=== PATIENT | male | born 1950 | race Caucasian/White ===

== ENCOUNTER 2016-04-07 16:25 | Emergency (ER) | payer MEDICARE, BC ==
[2016-04-07 16:34] VITALS: BP 137/76
--- NOTE | 2016-04-07 17:42 | RAD ---
Indication: Right shoulder pain. 3 views of the right shoulder demonstrates no fracture or dislocation. No other bone or joint abnormality is noted. IMPRESSION: No fracture of the right shoulder is noted.
--- NOTE | 2016-04-07 18:00 | UC ---
Shoulder Pain HPI - HPI Summary HPI Summary: 66 yo male s/p fall down three stairs late Dec Landed on right shoulder bruised initially persistent pain with use or lying on right side - History of Current Complaint Chief Complaint: UCUpperExtremity Stated Complaint: RIGHT SHOULDER/ARM PAIN Time Seen by Provider: 04/07/16 16:35 Hx Obtained From: Patient Onset/Duration: Sudden Onset Timing: Constant Severity Initially: Moderate Severity Currently: Mild Location Of Pain: Is Diffuse Pain Intensity: 2 Pain Scale Used: 0-10 Numeric Character: Dull, Aching Aggravating Factor(s): Movement Alleviating Factor(s): Rest Associated Signs And Symptoms: Positive: Bruising - now resolved Related History: Dominant Hand Right - Allergies/Home Medications Allergies/Adverse Reactions: Allergies Allergy/AdvReac Type Severity Reaction Status Date / Time Latex Allergy Rash Verified 04/07/16 16:34 Aspirin AdvReac Intermediate Rash Verified 04/07/16 16:34 Penicillins AdvReac Intermediate Rash Verified 04/07/16 16:34 Home Medications: Home Medications Anti Diarrhea 2 mg DAILY PRN 04/07/16 [History Confirmed 04/07/16] Magnesium Chloride EC TAB* [Slow Mag EC TAB*] 64 mg PO DAILY 04/07/16 [History Confirmed 04/07/16] PMH/Surg Hx/FS Hx/Imm Hx Previously Healthy: Yes Endocrine History Of: Reports: Thyroid Disease - hypothyroid Cardiovascular History Of: Reports: Hypertension - ON DAILY MEDS Respiratory History Of: Reports: Asthma - MINOR- NO INHALERS GI/ History Of: Reports: Ulcer - TREATED WITH MEDICATION, MANY YEARS AGO, Kidney Stones - PASSED Psychological History Of: Reports: Depression - Surgical History Surgical History: Yes Surgery Procedure, Year, and Place: 1979 thyroidectomy for hyperthyroid [facility] AGE 8 SURGERY ON BOTH EYES .HERNIA 2002 , UMBILICAL HERNIA and at . [id number] [facility] [place] - Family History Known Family History: Positive: Hypertension, Diabetes - Social History Alcohol Use: None Substance Use Type: None Smoking Status (MU): Never Smoked Tobacco - Immunization History Most Recent Tetanus Shot: 2006 Review of Systems Constitutional: Negative Skin: Negative Eyes: Negative ENT: Negative Respiratory: Negative Cardiovascular: Negative Gastrointestinal: Negative Genitourinary: Negative Motor: Negative Neurovascular: Negative Musculoskeletal: Arthralgia Neurological: Negative Psychological: Negative All Other Systems Reviewed And Are Negative: Yes Physical Exam Triage Information Reviewed: Yes Appearance: Well-Appearing, No Pain Distress, Well-Nourished Vital Signs: Initial Vital Signs Temp 98.5 F 04/07/16 16:30 Pulse 50 04/07/16 16:30 Resp 16 04/07/16 16:30 BP 137/76 04/07/16 16:30 Pulse Ox 96 04/07/16 16:30 Vital Signs Reviewed: Yes ENT: Negative: Hearing grossly normal, Nasal congestion, Nasal drainage, Trismus , Muffled/hoarse voice Neck: Positive: Supple, Nontender Respiratory: Positive: Lungs clear, Normal breath sounds, No respiratory distress Cardiovascular: Positive: RRR, No Murmur Musculoskeletal: Positive: ROM Intact, No Edema, Other: - see image Neurological: Positive: Alert Psychological Exam: Normal Skin Exam: Normal Shoulder Course/Dx - Differential Dx/Diagnosis Provider Diagnoses: right shoulder injury. chronic pain Discharge - Discharge Plan Condition: Stable Disposition: HOME Patient Education Materials: Shoulder Pain (ED) Referrals: Rory Rivas MD [Medical Doctor] - As Soon As Possible Additional Instructions: no fracture noted I suggest you see a orthopedic special for further work up tylenol for pain Images Front/Back of Body, Lg ([place]): 1 - tender here
== END 2016-04-07 18:00 | disposition home or self-care (01) ==
LOC: UCCORT 16:25
DX: S49.91XA Unspecified injury of right shoulder and upper arm, initial encounter (principal); G89.29 Other chronic pain; I10 Essential (primary) hypertension; W10.9XXA Fall (on) (from) unspecified stairs and steps, initial encounter; Y92.9 Unspecified place or not applicable; Z88.0 Allergy status to penicillin; Z88.6 Allergy status to analgesic agent
CPT/HCPCS: 99212; G0463

== ENCOUNTER 2017-07-13 17:52 | Emergency (ER) | payer MEDICARE, OTHER ==
[2017-07-13 18:52] VITALS: BP 131/68
--- NOTE | 2017-07-13 20:25 | UC ---
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 CUT HIMSELF WITH [employer] [place]. LAST TETANUS 2010. - History Of Current Complaint Chief Complaint: UCLaceration Stated Complaint: LEFT THUMB LACERATION Time Seen by Provider: 07/13/17 19:05 Hx Obtained From: Patient Laceration Location: Finger - LEFT THUMB Mechanism Of Injury: Sharp Trauma Onset/Duration: Sudden Onset, Lasting Hours, Still Present Severity: Moderate Pain Intensity: 0 Pain Scale Used: 0-10 Numeric Aggravating Factors: Nothing - Allergies/Home Medications Allergies/Adverse Reactions: Allergies Allergy/AdvReac Type Severity Reaction Status Date / Time aspirin Allergy Rash Verified 07/13/17 18:47 latex Allergy Rash Verified 07/13/17 18:47 Penicillins Allergy Rash Verified 07/13/17 18:47 PMH/Surg Hx/FS Hx/Imm Hx Endocrine History: Diabetes Cardiovascular History: Cardiac Disease, Hypertension Respiratory History: Asthma - Surgical History Surgical History: Yes Surgery Procedure, Year, and Place: 1979 thyroidectomy for hyperthyroid [facility] AGE 8 -. SURGERY ON BOTH EYES FOR LAZY EYE AT . HERNIA 2002 -UMBILICAL HERNIA and at - [id number] [facility] [place]. BILATERAL CATARACTS -SCREW IN RIGHT HIP AT . VASECTOMY. cardiac stent - Family History Known Family History: Positive: Hypertension, Diabetes - Social History Alcohol Use: None Substance Use Type: None Smoking Status (MU): Never Smoked Tobacco - Immunization History Most Recent Tetanus Shot: 2006 Review of Systems Constitutional: Negative Skin: Other - LACERATION Respiratory: Negative Cardiovascular: Negative Gastrointestinal: Negative Musculoskeletal: Negative All Other Systems Reviewed And Are Negative: Yes Physical Exam Triage Information Reviewed: Yes Appearance: Well-Appearing, No Pain Distress, Well-Nourished Vital Signs: Initial Vital Signs Temp 98.3 F 07/13/17 18:40 Pulse 46 07/13/17 18:40 Resp 16 07/13/17 18:40 BP 131/68 07/13/17 18:40 Pulse Ox 95 07/13/17 18:40 Vital Signs Reviewed: Yes Eyes: Positive: Conjunctiva Clear ENT: Positive: Hearing grossly normal Neck: Positive: Supple Respiratory: Positive: No respiratory distress, No accessory muscle use Cardiovascular: Positive: Pulses Normal Abdomen Description: Positive: Soft Musculoskeletal: Positive: ROM Intact, No Edema Neurological: Positive: Alert Psychological: Positive: Age Appropriate Behavior Skin: Positive: Other - 2.5 CM SKIN FLAP TIP OF LEFT THUMB. SKIN EDGES WELL APPROXIMATED AND ALREADY SEALED Laceration Repair - Laceration Repair 1 Description: Linear Laceration Size After Repair: Length (cm) - 2.5 CM, Width (mm) - 0MM, Depth (mm ) - 2MM Modified For Repair: No Irrigation With Pressure Irrigation Device: Yes Closure Material: Skin Adhesive, SteriStrips Laceration Course/Dx - Differential Dx - Laceration/Wound Provider Diagnoses: LACERATION REPAIR LEFT THUMB Discharge - Sign-Out/Discharge Documenting (check all that apply): Discharge/Admit/Transfer - Discharge Plan Condition: Stable Disposition: HOME Prescriptions: Cephalexin CAP* [Keflex 500 CAP*] 1,000 mg PO BID #20 cap Patient Education Materials: Finger Laceration (ED) Referrals: Rocco Ventura MD [Primary Care Provider] - 1 Week Additional Instructions: KEEP DRESSINGS IN PLACE AND DRY FOR THE FIRST 24 HRS. SEEK FOLLOW-UP IF YOU DEVELOP SPREADING REDNESS OF THE SKIN, PURULENT DRAINAGE, FEVER, INCREASED PAIN OR ANY OTHER CONCERNING SYMPTOMS. THE STERISTRIPS WILL FALL OFF ON THEIR OWN IN THE NEXT 1-2 WEEKS. DO NOT PUT ANY OINTMENT ON TOP OF THEM. DO NOT SUBMERGE IN WATER FOR PROLONGED PERIOD OF TIME. OKAY FOR BRIEF SHOWER AFTER 24 HOURS AND THEN BE SURE TO ALLOW TO DRY COMPLETELY. GIVEN YOUR INJURY A TDAP BOOSTER IS INDICATED BUT SINCE YOU HAVE A LATEX ALLERGY THE BOOSTRIX WE HAVE HERE IS CONTRAINDICATED. PLEASE FOLLOW-UP WITH YOUR PCP TO DISCUSS TD BOOSTER. - Billing Disposition and Condition Condition: STABLE Disposition: HOME
--- NOTE | 2017-07-14 12:10 | UC ---
- Progress Note Progress Note: Joshua cotton alerts us that pt has allergy to keflex. I have sent in bactrim to pharmacy. I will alert nurses to update patients. Discharge - Sign-Out/Discharge Documenting (check all that apply): Post-Discharge Follow Up - Discharge Plan Condition: Stable Disposition: HOME Prescriptions: Cephalexin CAP* [Keflex 500 CAP*] 1,000 mg PO BID #20 cap Sulfamethox/Trimethoprim DS* [Bactrim DS 800/160 TAB*] 1 tab PO BID #10 tab Patient Education Materials: Finger Laceration (ED) Referrals: Rocco Ventura MD [Primary Care Provider] - 1 Week Additional Instructions: KEEP DRESSINGS IN PLACE AND DRY FOR THE FIRST 24 HRS. SEEK FOLLOW-UP IF YOU DEVELOP SPREADING REDNESS OF THE SKIN, PURULENT DRAINAGE, FEVER, INCREASED PAIN OR ANY OTHER CONCERNING SYMPTOMS. THE STERISTRIPS WILL FALL OFF ON THEIR OWN IN THE NEXT 1-2 WEEKS. DO NOT PUT ANY OINTMENT ON TOP OF THEM. DO NOT SUBMERGE IN WATER FOR PROLONGED PERIOD OF TIME. OKAY FOR BRIEF SHOWER AFTER 24 HOURS AND THEN BE SURE TO ALLOW TO DRY COMPLETELY. GIVEN YOUR INJURY A TDAP BOOSTER IS INDICATED BUT SINCE YOU HAVE A LATEX ALLERGY THE BOOSTRIX WE HAVE HERE IS CONTRAINDICATED. PLEASE FOLLOW-UP WITH YOUR PCP TO DISCUSS TD BOOSTER. - Billing Disposition and Condition Condition: STABLE Disposition: HOME
== END 2017-07-13 20:30 | disposition home or self-care (01) ==
LOC: UCCORT 17:52
DX: S61.012A Laceration without foreign body of left thumb without damage to nail, initial encounter (principal); W26.8XXA Contact with other sharp object(s), not elsewhere classified, initial encounter; Y93.89 Activity, other specified; Y92.9 Unspecified place or not applicable; E11.9 Type 2 diabetes mellitus without complications; I11.9 Hypertensive heart disease without heart failure; J45.909 Unspecified asthma, uncomplicated; Z88.0 Allergy status to penicillin; Z88.6 Allergy status to analgesic agent; Z91.040 Latex allergy status; Z82.49 Family history of ischemic heart disease and other diseases of the circulatory system; Z83.3 Family history of diabetes mellitus
CPT/HCPCS: 12001; 99212; G0463

== ENCOUNTER 2017-11-02 09:14 | Emergency (ER) | payer MEDICARE, OTHER ==
[2017-11-02 09:49] VITALS: BP 119/63
--- NOTE | 2017-11-02 09:54 | UC ---
Lower Extremity/Ankle HPI - HPI Summary HPI Summary: 67 yo male presents with LEFT 4th fingernail injury. He tells me that about 1 week ago he was using a "ribbet gun" and it slipped and he pinched his finger in it. Has a small cut at the base of his nail. Over the last 2-3 days has noticed redness, swelling, and drainage around the area. Has not been soaking it. Denies fever or chills - History of Current Complaint Chief Complaint: UCUpperExtremity Stated Complaint: LEFT RING FINGER INJURY Time Seen by Provider: 11/02/17 09:53 Hx Obtained From: Patient Onset/Duration: Sudden Onset Severity Initially: Moderate Severity Currently: Mild Pain Intensity: 2 Pain Scale Used: 0-10 Numeric - Allergies/Home Medications Allergies/Adverse Reactions: Allergies Allergy/AdvReac Type Severity Reaction Status Date / Time aspirin Allergy Rash Verified 11/02/17 09:33 latex Allergy Rash Verified 11/02/17 09:33 Penicillins Allergy Rash Verified 11/02/17 09:33 Home Medications: Home Medications Cyanocobalamin TAB* [Vitamin B12 TAB*] 1 tab DAILY 11/02/17 [History Confirmed 11/02/17] PMH/Surg Hx/FS Hx/Imm Hx Endocrine History: Hypothyroidism, Dyslipidemia Cardiovascular History: Hypertension Psychological History: Anxiety - Surgical History Surgical History: Yes Surgery Procedure, Year, and Place: 1979 thyroidectomy for hyperthyroid [facility]. SURGERY ON BOTH EYES FOR LAZY EYE AT . HERNIA 2002 -UMBILICAL HERNIA and at - [id number] [place]. BILATERAL CATARACTS-SCREW IN RIGHT HIP AT . VASECTOMY - Family History Known Family History: Positive: Hypertension, Diabetes - Social History Occupation: Retired Lives: With Family Alcohol Use: None Substance Use Type: None Smoking Status (MU): Never Smoked Tobacco - Immunization History Most Recent Tetanus Shot: unsure Review of Systems Constitutional: Negative Skin: Other - Left 4th fingernail injury Respiratory: Negative Cardiovascular: Negative Neurovascular: Negative Musculoskeletal: Negative Neurological: Negative Psychological: Negative All Other Systems Reviewed And Are Negative: Yes Physical Exam - Summary Physical Exam Summary: GENERAL: NAD. WDWN. No pain distress. SKIN: Left 4th fingernail: Mild erythema and edema to radial aspect of nail- skin fold with mild yellow purulent drainage. Mild TTP NECK: Supple. Nontender. No lymphadenopathy. CHEST: No accessory muscle use. Breathing comfortably and in no distress. CV: Pulses intact. Cap refill <2seconds NEURO: Alert. PSYCH: Age appropriate behavior. Triage Information Reviewed: Yes Vital Signs: Initial Vital Signs Temp 97.6 F 11/02/17 09:37 Pulse 51 11/02/17 09:37 Resp 16 11/02/17 09:37 BP 119/63 11/02/17 09:37 Pulse Ox 94 11/02/17 09:37 Vital Signs Reviewed: Yes Lower Extremity Course/Dx - Course Course Of Treatment: Paonychia left 4th digit - Differential Dx/Diagnosis Provider Diagnoses: Paronychia left 4th finger Discharge - Sign-Out/Discharge Documenting (check all that apply): Patient Departure All imaging exams completed and their final reports reviewed: No Studies - Discharge Plan Condition: Stable Disposition: HOME Prescriptions: DOXYcycline CAP(*) [DOXYcycline 100MG CAP(*)] 100 mg PO BID #14 cap Patient Education Materials: Paronychia (ED) Referrals: Rocco Ventura MD [Primary Care Provider] - Additional Instructions: If you develop a fever, shortness of breath, chest pain, new or worsening symptoms - please call your PCP or go to the ED. - Billing Disposition and Condition Condition: STABLE Disposition: Home
== END 2017-11-02 10:09 | disposition home or self-care (01) ==
LOC: UCCORT 09:14
DX: L03.012 Cellulitis of left finger (principal); Z88.0 Allergy status to penicillin; Z88.6 Allergy status to analgesic agent; I10 Essential (primary) hypertension
CPT/HCPCS: 99212; G0463

== ENCOUNTER 2018-06-09 14:57 | Emergency (ER) | payer MEDICARE, OTHER ==
[2018-06-09 15:33] VITALS: BP 123/67
--- NOTE | 2018-06-09 15:45 | UC ---
UC General HPI - HPI Summary HPI Summary: 68 yo man with a history of IBS, with onset of watery diarrhea associated with cramps x 4 days ago. Initially up to 7 loose stools per day, with use of imodium today has had 4 bowel movements. Stools are loose and watery, without blood and no abdominal pain, nausea or vomiting. Hx of diarrhea predominant IBS, with signifivant improvement since beginning Viberzi 4 months ago. Normal voiding, little appetite, although ate more today than yesterday having had eggs this morning, only yogurt yesterday. No travel, no infectious contacts, uses well water. 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 Onset/Duration: Sudden Onset, Lasting Days - 4 Timing: Intermittent Episodes Lasting: Onset Severity: Moderate Current Severity: Moderate Pain Intensity: 0 Associated Signs & Symptoms: Positive: Diarrhea, Decreased Oral Intake, Nausea. Negative: Vomiting - Allergy/Home Medications Allergies/Adverse Reactions: Allergies Allergy/AdvReac Type Severity Reaction Status Date / Time aspirin Allergy Rash Verified 06/09/18 15:34 latex Allergy Rash Verified 06/09/18 15:34 Penicillins Allergy Rash Verified 06/09/18 15:34 Home Medications: Home Medications Eluxadoline [Viberzi] BID 06/09/18 [History] PMH/Surg Hx/FS Hx/Imm Hx Endocrine History: Hypothyroidism Cardiovascular History: Hypertension GI/ History: Other - IBS BPH - Surgical History Surgical History: Yes Surgery Procedure, Year, and Place: 1979 thyroidectomy for hyperthyroid [facility]. SURGERY ON BOTH EYES FOR LAZY EYE AT . HERNIA 2002 -UMBILICAL HERNIA and at - [id number] [facility] [place]. BILATERAL CATARACTS-SCREW IN RIGHT HIP AT . VASECTOMY - Family History Known Family History: Positive: Hypertension, Diabetes - Social History Occupation: Retired Lives: With Family Alcohol Use: None Substance Use Type: None Smoking Status (MU): Never Smoked Tobacco - Immunization History Most Recent Tetanus Shot: unsure Review of Systems All Other Systems Reviewed And Are Negative: Yes Constitutional: Positive: Fatigue Skin: Positive: Negative Eyes: Positive: Negative ENT: Positive: Negative Respiratory: Positive: Negative Cardiovascular: Positive: Negative Gastrointestinal: Positive: Diarrhea Genitourinary: Positive: Negative Motor: Positive: Negative Neurovascular: Positive: Negative Musculoskeletal: Positive: Negative Neurological: Positive: Negative, Headache - headache earlier this week, resolved Physical Exam Triage Information Reviewed: Yes Appearance: Well-Appearing, No Pain Distress, Obese Vital Signs: Initial Vital Signs Temp 98 F 06/09/18 15:28 Pulse 54 06/09/18 15:28 Resp 16 06/09/18 15:28 BP 123/67 06/09/18 15:28 Pulse Ox 94 06/09/18 15:28 Eye Exam: Normal Eyes: Positive: Conjunctiva Clear ENT: Positive: Pharynx normal Neck: Positive: Supple, Nontender, No Lymphadenopathy Respiratory: Positive: Lungs clear, Normal breath sounds Cardiovascular: Positive: RRR, No Murmur Abdomen Description: Positive: Nontender, No Organomegaly, Soft. Negative: Hepatomegaly, Splenomegaly Bowel Sounds: Positive: Hyperactive Neurological Exam: Normal Neurological: Positive: Alert Psychological Exam: Normal Skin Exam: Normal Course/Dx - Course Course Of Treatment: Decrease imodium due to use of Viberzi, diarrhea diet, hold magnesium. Follow up if persists with PMD - Differential Dx - Multi-Symptom Differential Diagnoses: Other - IBS, gastroenteritis. - Diagnoses Provider Diagnosis: Viral gastroenteritis Discharge - Sign-Out/Discharge Documenting (check all that apply): Patient Departure All imaging exams completed and their final reports reviewed: No Studies - Discharge Plan Condition: Stable Disposition: HOME Patient Education Materials: Gastroenteritis (ED), Nutrition Tips for Relief of Diarrhea (ED) Referrals: Rocco Ventura MD [Primary Care Provider] - Additional Instructions: Ensure a high intake of fluids including soup broth. Advance your diet to increase in breads, pasta, continued yogurt, cooked vegetables. Limit imodium to 2 per day tomorrow, and no further use today. HOLD magnesium until diarrhea resolves because it promotes loose stools. Follow up with your primary care physician if it continues, but I anticipate diarrhea will resolve within 48 hours. - Billing Disposition and Condition Condition: STABLE Disposition: Home
== END 2018-06-09 16:12 | disposition home or self-care (01) ==
LOC: UCCORT 14:57
DX: A08.4 Viral intestinal infection, unspecified (principal); K58.0 Irritable bowel syndrome with diarrhea; I10 Essential (primary) hypertension; Z88.8 Allergy status to other drugs, medicaments and biological substances; Z88.0 Allergy status to penicillin; Z91.040 Latex allergy status; Z79.899 Other long term (current) drug therapy
CPT/HCPCS: 99211; G0463

== ENCOUNTER 2018-12-02 14:28 | Emergency (ER) | payer MEDICARE, OTHER ==
--- OUTSIDE RECORDS SUMMARY | 2018-12-02 15:17 | XMS REPORT | Continuity of Care Document ---
:1950 External Reference #:[id number] Author Name Rocco Ventura (transmitted by agent of provider Dedra Lazo) Address [address] [place] [address] Care Team Providers Name Role Phone Rocco Ventura MD - Internal Medicine Care Team Information Pricing Specialist [phone] Problems Active Problems Provider Date Hyperlipidemia Rocco Ventura Onset: 05/12/2010 Depressive disorder Rocco Ventura Onset: 05/12/2010 Rheumatic disease of tricuspid valve Rocco Ventura Onset: 05/12/2010 Gastroesophageal reflux disease Rocco Ventura Onset: 05/12/2010 Obesity Rocco Ventura Onset: 05/12/2010 Obstructive sleep apnea syndrome Rocco Ventura Onset: 05/12/2010 Heart murmur Rocco Ventura Onset: 05/12/2010 Carotid artery occlusion Rocco Ventura Onset: 05/12/2010 Inflammatory disease of liver Rocco Ventura Onset: 05/12/2010 Social History Type Date Description Comments Sex Unknown Tobacco Use Start: Unknown Denies Smoking ETOH Use Denies alcohol use Tobacco Use Start: Unknown Patient has never smoked Recreational Drug Use Never Used Drugs Allergies, Adverse Reactions, Alerts Active Allergies Reaction Severity Comments Date Latex 04/26/2009 Penicillins 04/26/2009 Levofloxacin 11/24/2016 Medications Active Medications SIG Qnty Indications Ordering Date Provider Metformin HCL ER 1 by mouth by 90tabs E11.65 Rocco Ventura 08/23/2018 750mg mouth every Tablets ER 24HR evening Levothyroxine Sodium 1 by mouth every 90tabs Rocco Ventura 08/23/2018 day 150mcg Tablets A & D Zinc Oxide Apply Twice 45gm Rocco Ventura 07/28/2018 Cream Daily as Needed Paroxetine HCL 1 by mouth every 90tabs [facility]32[facility]9 [facility] 10mg day Tablets Vitamin B-12 1 by mouth every 90tabs [facility] 02/01/2018 Natural day 500mcg Tablets Magnesium one tablet twice 180caps E83.40 [facility] 11/15/2017 500mg Capsules a day Vitamin D3 1 by mouth every 90caps [facility] 06/04/2015 5000Unit day Capsules Cpap Mask And Supples as directed Kamran Ventural 05/31/2014 [place] 3 2 by mouth every 180caps [facility] 04/18/2014 1000mg Capsules day Cpap Machine Please dispense Rocco Ventura 05/04/2012 a mask, hose and filter. Dx Sleep Apnea Flomax 1 by mouth every 90caps [facility] 09/16/2010 0.4mg Capsules day Bystolic 1 by mouth every 90tabs [facility] 04/26/2009 5mg Tablets day Lipitor 1 by mouth every 90tabs [facility] 04/26/2009 40mg Tablets day Tricor 1 by mouth every 90tabs [facility] 04/26/2009 145mg Tablets day Altace 1qd - take one 90caps [facility] 04/26/2009 10mg Capsules capsule by mouth every day Dexilant 1 by mouth every 90caps [facility] 60mg C[address] day Viberzi 1 by mouth twice 180tabs [facility] 100mg Tablets a day History Medications A & D Cream Apply Twice Daily as Needed 45gm Lamonika Rcoco 06/21/2018 - Immunizations CPT Code Status Date Vaccine Lot # [id number] Given 10/11/2018 Influenza Virus (Afluria) Split Virus 3 Years [id number] Of Age And Older 21371 Given 10/11/2018 Influenza Virus Vaccine, Quadrivalent, Split, Preservative Free [id number] Given 11/15/2017 Tetanus,Diphtheria,Adut/Adol Pertussis [id number] Q2035 Given 11/08/2017 Influenza Virus (Afluria) Split Virus 3 Years Of Age And Older Q2035 Given 10/30/2016 Influenza Virus (Afluria) Split Virus 3 Years Of Age And Older 46363 Given 09/03/2016 Pneumococcal Conjugate Vaccine 13 Valent For [id number] Intramuscular Use Q2037 Given 11/11/2015 Influenza Vaccine (Fluvirin) 3 Years Of Age Or [id number] Older Q2035 Given 10/16/2014 Influenza Virus (Afluria) Split Virus 3 Years [id number] Of Age And Older 97339 Given 01/02/2014 Pneumovax Polyvalent Inj Im Q2037 Given 12/05/2013 Influenza Vaccine (Fluvirin) 3 Years Of Age Or Older Q2035 Given 11/16/2012 Influenza Virus (Afluria) Split Virus 3 Years Of Age And Older Q2035 Given 11/16/2012 Influenza Virus (Afluria) Split Virus 3 Years [id number] Of Age And Older Q2037 Given 12/01/2011 Influenza Vaccine (Fluvirin) 3 Years Of Age Or [id number] Older Q2036 Given 12/30/2010 Flulaval [id number] Given 12/30/2010 Influenza Vaccine 29069 Given 05/12/2010 Tetanus Shot 83478 Given 11/05/2009 Influenza Vaccine [id number] 29535 Given 11/15/2008 [place] [address] Given Unknown Zostavax Vital Signs Date Vital Result Comment 11/28/2018 11:17am BP Systolic 124 mmHg BP Diastolic 68 mmHg Heart Rate 50 /min Height 68 inches 5'8" Weight 209.00 lb BMI (Body Mass Index) 31.8 kg/m2 O2 % BldC Oximetry 94 % 11/09/2018 11:39am BP Systolic 110 mmHg BP Diastolic 60 mmHg Height 68 inches 5'8" Weight 213.00 lb BMI (Body Mass Index) 32.4 kg/m2 Results Test Date Facility Test Result H/L Range Note TSH Reflex 11/23/2018 [facility] Thyroid Stim 0.77 uIU/mL Normal 0.30-4.20 1 FT4 And/Or [address] Hormone FT3 [place] [address] [phone] Reflex add FT3? N Reflex add FT4? N LDL Cholesterol 11/23/2018 [facility] Cholesterol 172 mg/dL <200 [address] [place] [address] [phone] Triglycerides 191 mg/dL High <150 3 HDL Cholesterol 35 mg/dL Low >40 4 LDL-Cholesterol 99 mg/dL < 100 5 Reflex add FT3? N Reflex add FT4? N Magnesium 11/23/2018 [facility] Magnesium 1.8 mg/dL Normal 1.8-2.[address] [place], [place] [address] [phone] Reflex add FT3? N Reflex add FT4? N Comprehensive 11/23/2018 [facility] Glucose 135 mg/ dL High 74-106 Metabolic Panel [address] [place] [address] [phone] BUN 33 mg/dL High 7-18 Creatinine 1.7 mg/dL High 0.6-1.3 Glom Filtration Rate, Estimate 43 mL/min >60 If 52 mL/min >60 6 BUN/Creat 19.4 ratio Sodium 141 mmol/L Normal 136-145 Potassium 4.7 mmol/L Normal 3.5-5.1 Chloride 110 mmol/L High 98-107 Carbon Dioxide 27 mmol/L Normal 21-32 Anion Gap 4 mEq/L Low 8-16 Calcium 9.2 mg/dL Normal 8.5-10.1 Total Protein 7.4 g/dL Normal 6.4-8.2 Albumin 4.2 g/dL Normal 3.4-5.0 Globulin 3.2 g/dL Normal 1.9-4.3 Alb/Glob 1.3 ratio Bilirubin,Total 0.5 mg/dL Normal 0.2-1.0 Sgot/Ast 64 U/L High 15-37 SGPT/Alt 109 U/L High 12-78 Alkaline Phosphatase 37 U/L Low 45-117 Reflex add FT3? N Reflex add FT4? N Glycohemoglobin 11/23/2018 [facility] Glycohemoglobin 6.5 % High 4.2-6.3 [address] (A1c) [place] [address] [phone] eAG 140 mg/dL Laboratory test 11/23/2018 [facility] Glycohemoglobin A1c <pending> finding [address] [place] [address] [phone] TSH Reflex FT4 And/Or FT3 <pending> CBS W/Automated 11/23/2018 [facility] White 4.5 K/uL Normal 3.4-10.[address] [place] [address] Count [phone] Red Blood Count 4.46 M/uL Normal 4.20-5.80 Hemoglobin 14.4 gm/dL Normal 12.8-17.0 Hematocrit 42.1 % Normal 38.0-48.0 Mean Cell Volume 94.4 fl Normal 80.0-96.0 Mean Corpuscular HGB 32.3 pg Normal 27.0-33.0 Mean Corpuscular HGB Conc 34.2 g/dL Normal 31.7-36.0 Platelet Count 169 K/uL Normal 155-360 Red Cell Distri Width SD 46.9 fl Normal 36-51 Red Cell Distri Width %CV 13.5 % Normal 11.6-15.8 Mean Platelet Volume 9.7 fl Normal 6.6-10.6 Neut% 54.2 % Normal 33.0-73.0 Lymph % 34.2 % Normal 20.0-42.0 Mcleod % 6.3 % Normal 0.0-10.0 Eo% 3.8 % Normal 0.0-6.6 Bas% 1.3 % High 0.0-1.1 Immature Grans 0.2 % Normal 0.0-5.0 NRBC % 0.0 /100WBC < 10/ 100 WBC Neut# 2.43 K/uL Normal 1.8-7.0 Lymph # 1.53 K/uL Normal 1.0-4.0 Mcleod # 0.28 K/uL Normal 0.0-0.8 Eos # 0.17 K/uL Normal 0.0-0.5 Baso # 0.06 K/uL Normal 0.0-0.1 Immature Grans Absolute 0.01 K/uL NRBC # 0.00 K/uL Direct LDL 11/23/2018 [facility] LDL Chol. 97 mg/dL 0-[address] (Direct) [place], [place] [address] [phone] Laboratory test 11/23/2018 [facility] Prostatic Acid 1.1 ng/mL 0.0-3.5 [address] Phos,[place] [address] [phone] Vitamin D,25-Hydroxy 44.9 ng/mL 30.0-100.0 9 Laboratory 11/23/2018 [facility] Magnesium <pending> test finding [address] [place] [address] [phone] Laboratory 08/17/2018 [facility] Free T4 1.0 ng/dL . 10, test finding [address] Dialysis/Mass [address] [place] [address] Spect [phone] Laboratory 08/17/2018 [facility] Vitamin 37.4 ng/mL 30.0-100.0 12 test finding [address] D,25[place] [address] [phone] Hepatitis 08/17/2018 [facility] Hepatitis A Negative Negative Evaluation [address] [place] [address] [phone] HBsAg Screen [Ref Lab] Negative Negative Hepatitis B Core IgM Negative Negative HCV Signal/Cutoff ratio < 0.1 s/corat 0.0-0.9 13 Laboratory test 08/17/2018 [facility] Thyroid Stim 4.89 uIU/mL High 0.30-4.[address] [place] [address] [phone] Free T4 0.93 ng/dL Normal 0.76-1.46 LDL Cholesterol 08/17/2018 [facility] Cholesterol 180 mg/dL <200 [address] [place] [address] [phone] Triglycerides 330 mg/dL High <150 15 HDL Cholesterol 31 mg/dL Low >40 16 LDL-Cholesterol 83 mg/dL < 100 17 Laboratory test 08/17/2018 [facility] Magnesium 1.6 mg/dL Low 1.8-2.[address] [place] [address] [phone] Comprehensive 08/17/2018 [facility] Glucose 147 mg/ dL High 74-106 Metabolic Panel [address] [place] [address] [phone] BUN 36 mg/dL High 7-18 Creatinine 1.3 mg/dL Normal 0.6-1.3 Glom Filtration Rate, Estimate 59 mL/min >60 If >60 mL/min >60 18 BUN/Creat 27.6 ratio Sodium 138 mmol/L Normal 136-145 Potassium 4.4 mmol/L Normal 3.5-5.1 Chloride 106 mmol/L Normal 98-107 Carbon Dioxide 24 mmol/L Normal 21-32 Anion Gap 8 mEq/L Normal 8-16 Calcium 9.4 mg/dL Normal 8.5-10.1 Total Protein 7.7 g/dL Normal 6.4-8.2 Albumin 4.0 g/dL Normal 3.4-5.0 Globulin 3.7 g/dL Normal 1.9-4.3 Alb/Glob 1.1 ratio Bilirubin,Total 0.6 mg/dL Normal 0.2-1.0 Sgot/Ast 100 U/L High 15-37 SGPT/Alt 128 U/L High 12-78 Alkaline Phosphatase 40 U/L Low 45-117 CBS W/Automated 08/17/2018 [facility] White 4.3 K/uL Normal 3.4-10.[address] [place] [address] Count [phone] Red Blood Count 4.40 M/uL Normal 4.20-5.80 Hemoglobin 14.3 gm/dL Normal 12.8-17.0 Hematocrit 41.1 % Normal 38.0-48.0 Mean Cell Volume 93.4 fl Normal 80.0-96.0 Mean Corpuscular HGB 32.5 pg Normal 27.0-33.0 Mean Corpuscular HGB Conc 34.8 g/dL Normal 31.7-36.0 Platelet Count 157 K/uL Normal 155-360 Red Cell Distri Width SD 46.8 fl Normal 36-51 Red Cell Distri Width %CV 13.7 % Normal 11.6-15.8 Mean Platelet Volume 10.1 fl Normal 6.6-10.6 Neut% 52.5 % Normal 33.0-73.0 Lymph % 34.8 % Normal 20.0-42.0 Mcleod % 6.7 % Normal 0.0-10.0 Eo% 4.9 % Normal 0.0-6.6 Bas% 0.9 % Normal 0.0-1.1 Immature Grans 0.2 % Normal 0.0-5.0 NRBC % 0.0 /100WBC < 10/ 100 WBC Neut# 2.26 K/uL Normal 1.8-7.0 Lymph # 1.50 K/uL Normal 1.0-4.0 Mcleod # 0.29 K/uL Normal 0.0-0.8 Eos # 0.21 K/uL Normal 0.0-0.5 Baso # 0.04 K/uL Normal 0.0-0.1 Immature Grans Absolute 0.01 K/uL NRBC # 0.00 K/uL Glycohemoglobin 08/17/2018 [facility] Glycohemoglobin 7.2 % High 4.2-6.3 [address] (A1c) [place], [place] [address] [phone] eAG 160 mg/dL Laboratory test 07/20/2018 [facility] Magnesium 1.3 Low 1.8-2.4 [address] mg/[place] [address] [phone] Glycohemoglobin 07/20/2018 [facility] Glycohemoglobin 7.4 % High 4.2-6.3 [address] (A1c) [place] [address] [phone] eAG 166 mg/dL Comprehensive 07/20/2018 [facility] Glucose 160 mg/ dL High 74-106 Metabolic Panel [address] [place] [address] [phone] BUN 27 mg/dL High 7-18 Creatinine 1.1 mg/dL Normal 0.6-1.3 Glom Filtration Rate, Estimate >60 mL/min >60 If >60 mL/min >60 22 BUN/Creat 24.5 ratio Sodium 138 mmol/L Normal 136-145 Potassium 4.4 mmol/L Normal 3.5-5.1 Chloride 104 mmol/L Normal 98-107 Carbon Dioxide 25 mmol/L Normal 21-32 Anion Gap 9 mEq/L Normal 8-16 Calcium 9.1 mg/dL Normal 8.5-10.1 Total Protein 7.5 g/dL Normal 6.4-8.2 Albumin 3.8 g/dL Normal 3.4-5.0 Globulin 3.7 g/dL Normal 1.9-4.3 Alb/Glob 1.0 ratio Bilirubin,Total 0.4 mg/dL Normal 0.2-1.0 Sgot/Ast 96 U/L High 15-37 SGPT/Alt 136 U/L High 12-78 Alkaline Phosphatase 44 U/L Low 45-117 CBS W/Automated 07/20/2018 [facility] White 4.0 K/uL Normal 3.4-10.[address] [place] [address] Count [phone] Red Blood Count 4.45 M/uL Normal 4.20-5.80 Hemoglobin 14.6 gm/dL Normal 12.8-17.0 Hematocrit 42.3 % Normal 38.0-48.0 Mean Cell Volume 95.1 fl Normal 80.0-96.0 Mean Corpuscular HGB 32.8 pg Normal 27.0-33.0 Mean Corpuscular HGB Conc 34.5 g/dL Normal 31.7-36.0 Platelet Count 167 K/uL Normal 155-360 Red Cell Distri Width SD 47.3 fl Normal 36-51 Red Cell Distri Width %CV 13.5 % Normal 11.6-15.8 Mean Platelet Volume 9.9 fl Normal 6.6-10.6 Neut% 51.3 % Normal 33.0-73.0 Lymph % 35.8 % Normal 20.0-42.0 Mcleod % 6.8 % Normal 0.0-10.0 Eo% 4.3 % Normal 0.0-6.6 Bas% 1.3 % High 0.0-1.1 Immature Grans 0.5 % Normal 0.0-5.0 NRBC % 0.0 /100WBC < 10/ 100 WBC Neut# 2.06 K/uL Normal 1.8-7.0 Lymph # 1.43 K/uL Normal 1.0-4.0 Mcleod # 0.27 K/uL Normal 0.0-0.8 Eos # 0.17 K/uL Normal 0.0-0.5 Baso # 0.05 K/uL Normal 0.0-0.1 Immature Grans Absolute 0.02 K/uL NRBC # 0.00 K/uL Laboratory test 07/20/2018 [facility] Thyroid Stim 4.21 uIU/mL High 0.30-4.[address] [place] [address] [phone] Free T4 0.90 ng/dL Normal 0.76-1.46 Ua RFX Micro & 06/11/2018 [facility] Urine Color YELLOW Yellow 23 Culture II [address] [place], [place] [address] [phone] Urine Clarity CLEAR Clear Urine Glucose - Dipstick NEGATIVE mg/dL Negative Urine Bilirubin - Dipstick NEGATIVE Negative Urine Ketone NEGATIVE mg/dL Negative Urine Specific [place] <= 1.005 Low 1.010-1.030 Urine Blood NEGATIVE Negative Urine PH 6.0 Low 6.5-7.5 Urine Protein - Dipstick NEGATIVE mg/dL Negative Urine Urobilinogen - Dipstick 0.2 E.U./dL Normal 0.2-1.0 Urine Nitrite - Dipstick NEGATIVE Negative Urine Leuk Esterase NEGATIVE Negative Source: URINE, CLEAN CAT <SEE NOTE> 24 Hepatitis 06/11/2018 [facility] Hepatitis A Negative Negative Evaluation [address] [place] [address] [phone] HBsAg Screen [Ref Lab] Negative Negative Hepatitis B Core IgM Negative Negative HCV Signal/Cutoff ratio < 0.1 s/corat 0.0-0.9 25 Smear For WBC'S 06/11/2018 [facility] Smear For WBC'S RARE [address] [place] [address] [phone] Smear Source: STOOL Specimen Source: STOOL Ova & Parasite 06/11/2018 [facility] Cryptosporidium NEGATIVE FOR 26 Antigen Screen [address] Specific Ag CRY <[place] [address] NOTE> [phone] Giardia Specific Antigen NEGATIVE FOR BENI <SEE NOTE> 27 Stool Culture 06/11/2018 [facility] Stool Culture NO ENTERIC PATHO [address] <SEE NOTE> [place], [place] [address] [phone] . ................ <SEE NOTE> 29 Note: INCLUDES TESTING <SEE NOTE> 30 . PLESIOMONAS, CAM <SEE NOTE> 31 . ................ <SEE NOTE> 32 . YERSINIA AND VIB <SEE NOTE> 33 . SHOULD BE REQUES <SEE NOTE> 34 Shiga Toxin 1 Antigen SHIGA TOXIN 1 NO <SEE NOTE> 35 Shiga Toxin 2 Antigen SHIGA TOXIN 2 NO <SEE NOTE> 36 Laboratory test 06/11/2018 [facility] C. Difficile Negative for [address] Toxin B By PCR tox <[place] [address] NOTE> [phone] Laboratory test 06/11/2018 [facility] Lactoferrin, 4.57 0.[address] Stool Quant ug/mL(g) -7.2 [place] [address] 4 [phone] CBS W/Automated 06/11/2018 [facility] White Blood 4.6 K/uL Normal 3.4- Diff [address] Count 10.5 [place] [address] [phone] Red Blood Count 4.33 M/uL Normal 4.20-5.80 Hemoglobin 14.1 gm/dL Normal 12.8-17.0 Hematocrit 41.3 % Normal 38.0-48.0 Mean Cell Volume 95.4 fl Normal 80.0-96.0 Mean Corpuscular HGB 32.6 pg Normal 27.0-33.0 Mean Corpuscular HGB Conc 34.1 g/dL Normal 31.7-36.0 Platelet Count 152 K/uL Low 155-360 Red Cell Distri Width SD 49.4 fl Normal 36-51 Red Cell Distri Width %CV 14.0 % Normal 11.6-15.8 Mean Platelet Volume 9.8 fl Normal 6.6-10.6 Neut% 49.3 % Normal 33.0-73.0 Lymph % 37.9 % Normal 20.0-42.0 Mcleod % 7.5 % Normal 0.0-10.0 Eo% 4.2 % Normal 0.0-6.6 Bas% 0.7 % Normal 0.0-1.1 Immature Grans 0.4 % Normal 0.0-5.0 NRBC % 0.0 /100WBC < 10/ 100 WBC Neut# 2.25 K/uL Normal 1.8-7.0 Lymph # 1.73 K/uL Normal 1.0-4.0 Mcleod # 0.34 K/uL Normal 0.0-0.8 Eos # 0.19 K/uL Normal 0.0-0.5 Baso # 0.03 K/uL Normal 0.0-0.1 Immature Grans Absolute 0.02 K/uL NRBC # 0.00 K/uL Comprehensive 06/11/2018 [facility] Glucose 129 mg/ dL High 74-106 Metabolic Panel [address] [place], [place] [address] [phone] BUN 19 mg/dL High 7-18 Creatinine 1.2 mg/dL Normal 0.6-1.3 Glom Filtration Rate, Estimate >60 mL/min >60 If >60 mL/min >60 39 BUN/Creat 15.8 ratio Sodium 137 mmol/L Normal 136-145 Potassium 3.9 mmol/L Normal 3.5-5.1 Chloride 105 mmol/L Normal 98-107 Carbon Dioxide 22 mmol/L Normal 21-32 Anion Gap 10 mEq/L Normal 8-16 Calcium 8.3 mg/dL Low 8.5-10.1 Total Protein 7.0 g/dL Normal 6.4-8.2 Albumin 3.5 g/dL Normal 3.4-5.0 Globulin 3.5 g/dL Normal 1.9-4.3 Alb/Glob 1.0 ratio Bilirubin,Total 0.6 mg/dL Normal 0.2-1.0 Sgot/Ast 320 U/L High 15-37 SGPT/Alt 372 U/L High 12-78 Alkaline Phosphatase 43 U/L Low 45-117 Laboratory test 06/11/2018 [facility] Lipase 81 U/L Normal 56-[address] [place], [place] [address] [phone] 1 I34.0, D64.9, E78.5, E61.2, 03.9 2 Reference Guidelines*: Desirable: ........... < 200 mg/dL Borderline High: ..... 200-239 mg/dL High: ................ >= 240 mg/dL * The National Cholesterol Education Program (NCEP) 3 Reference Guidelines*: Normal: ............. < 150 mg/dL Borderline High: .... 150-199 mg/dL High: ............... 200-499 mg/dL Very High: .......... > 500 mg/dL * Source: National Cholesterol Education Program (NCEP) 4 Reference Guidelines*: Low HDL: ..... < 40 mg/dL Normal: ..... 40-60 mg/dL Desirable: ... > 60 mg/dL *The National Cholesterol Education Program(NCEP) 5 Reference Guidelines*: Optimal:........... <100 mg/dL Near Optimal....... 100-129 mg/dL Borderline High.... 130-159 mg/dL High............... 160-189 mg/dL Very High.......... >=190 mg/dL * Source: National Cholesterol Education Program (NCEP) 6 Note: Persistent reduction for 3 months or more in an eGFR <60 mL/min/1.73 m2 defines CKD. Patients with eGFR values >/=60 mL/min/1.73 m2 may also have CKD if evidence of persistent proteinuria is present. The original MDRD equation for estimated GFR is not valid for patients less than 18 years of age. Additional information may be found at www.kdoqi.org. 7 Elevated levels of HbA1c suggest the need for more aggressive treatment of glycemia. The [place] Diabetes Association recommends that a primary goal of therapy should be a HbA1c of <7% and that physicians should re-evaluate the treatment regimen in patients with HbA1c values consistently >8%. 8 [employer] 2000 methodology. Values obtained with different assay methods or kits cannot be used interchangeably. Results cannot be interpreted as absolute evidence of the presence or absence of malignant disease. Performed at: - [facility] [id number] Cardiopulmonary Technician And Eeg Tech: Jannie Luna MD, Phone: [phone] Performed at: - [facility] [id number] Cardiopulmonary Technician And Eeg Tech: Ivan Rodriguez MD, Phone: [phone] 9 Vitamin D deficiency has been defined by the [place] of [employer] and an Endocrine Society practice guideline as a level of serum 25-OH vitamin D less than 20 ng/mL (1,2). The Endocrine Society went on to further define vitamin D insufficiency as a level between 21 and 29 ng/mL (2). 1. IOM ([place] [employer]). 2010. Dietary reference intakes for calcium and D. [place]: The National Academies Press. 2. Kathryn PETE, Sheri HERNANDEZ, Oly VILLARREAL, et al. Evaluation, treatment, and prevention of vitamin D deficiency: an Endocrine Society clinical practice guideline. JCEM. 2010; 96(7):1911-30. Performed at: - [facility] [id number] Cardiopulmonary Technician And Eeg Tech: Jannie Luna MD, Phone: [phone] 10 NO DX 11 Reference Range: Pubertal Children and Adults: 0.8 - 1.7 Performed at: [facility] [address] [place] [id number] Cardiopulmonary Technician And Eeg Tech: Ron Pastor MD, Phone: [phone] 12 Vitamin D deficiency has been defined by the [place] [employer] and an Endocrine Society practice guideline as a level of serum 25-OH vitamin D less than 20 ng/mL (1,2). The Endocrine Society went on to further define vitamin D insufficiency as a level between 21 and 29 ng/mL (2). 1. IOM ([place] [employer]). 2010. Dietary reference intakes for calcium and D. [place]: The National Academies Press. 2. Sheri Stevenson, Oly VILLARREAL, et al. Evaluation, treatment, and prevention of vitamin D deficiency: an Endocrine Society clinical practice guideline. JCEM. 2010; 96(7):1911-30. Performed at: - [facility] [address] [id number] Cardiopulmonary Technician And Eeg Tech: Jannie Luna MD, Phone: [phone] 13 INFCE Result Units: s/co ratio Negative: < 0.8 Indeterminate: 0.8 - 0.9 Positive: > 0.9 The CDC recommends that a positive HCV antibody result be followed up with a HCV Nucleic Acid Amplification test (128083). Performed at: - [facility] [id number] Cardiopulmonary Technician And Eeg Tech: Jannie Luna MD, Phone: [phone] 14 Reference Guidelines*: Desirable: ........... < 200 mg/dL Borderline High: ..... 200-239 mg/dL High: ................ >= 240 mg/dL * The National Cholesterol Education Program (NCEP) 15 Reference Guidelines*: Normal: ............. < 150 mg/dL Borderline High: .... 150-199 mg/dL High: ............... 200-499 mg/dL Very High: .......... > 500 mg/dL * Source: National Cholesterol Education Program (NCEP) 16 Reference Guidelines*: Low HDL: ..... < 40 mg/dL Normal: ..... 40-60 mg/dL Desirable: ... > 60 mg/dL *The National Cholesterol Education Program(NCEP) 17 Reference Guidelines*: Optimal:........... <100 mg/dL Near Optimal....... 100-129 mg/dL Borderline High.... 130-159 mg/dL High............... 160-189 mg/dL Very High.......... >=190 mg/dL * Source: National Cholesterol Education Program (NCEP) 18 Note: Persistent reduction for 3 months or more in an eGFR <60 mL/min/1.73 m2 defines CKD. Patients with eGFR values >/=60 mL/min/1.73 m2 may also have CKD if evidence of persistent proteinuria is present. The original MDRD equation for estimated GFR is not valid for patients less than 18 years of age. Additional information may be found at www.kdoqi.org. 19 Elevated levels of HbA1c suggest the need for more aggressive treatment of glycemia. The [place] Diabetes Association recommends that a primary goal of therapy should be a HbA1c of <7% and that physicians should re-evaluate the treatment regimen in patients with HbA1c values consistently >8%. 20 E06.9 E07.9 E78.2 E03.9 E83.40 E11.9 21 Elevated levels of HbA1c suggest the need for more aggressive treatment of glycemia. The [place] Diabetes Association recommends that a primary goal of therapy should be a HbA1c of <7% and that physicians should re-evaluate the treatment regimen in patients with HbA1c values consistently >8%. 22 Note: Persistent reduction for 3 months or more in an eGFR <60 mL/min/1.73 m2 defines CKD. Patients with eGFR values >/=60 mL/min/1.73 m2 may also have CKD if evidence of persistent proteinuria is present. The original MDRD equation for estimated GFR is not valid for patients less than 18 years of age. Additional information may be found at [email or web address]. 23 DIARRHEA FOR WEEK 24 URINE, CLEAN CATCH 25 INFCE Result Units: s/co ratio Negative: < 0.8 Indeterminate: 0.8 - 0.9 Positive: > 0.9 The CDC recommends that a positive HCV antibody result be followed up with a HCV Nucleic Acid Amplification test (548215). Performed at: - [facility] [id number] Cardiopulmonary Technician And Eeg Tech: Jannie Luna MD, Phone: [phone] 26 NEGATIVE FOR CRYPTOSPORIDIUM SPECIFIC ANTIGEN 27 NEGATIVE FOR GIARDIA SPECIFIC ANTIGEN. The specimen will be held for 5 days. Additional testing may be performed upon request if the antigen tests are negative, and the patient is still symptomatic or has traveled to an endemic region. Method: Alere Quik Chek Rapid Membrane Enzyme Immunoassay 28 NO ENTERIC PATHOGENS ISOLATED 29 ................................................... 30 INCLUDES TESTING FOR SALMONELLA, SHIGELLA, AEROMONAS, 31 PLESIOMONAS, CAMPYLOBACTER, AND E. COLI 0157:H7 32 ................................................... 33 YERSINIA AND VIBRIO ARE NOT ROUTINELY SCREENED FOR AND 34 SHOULD BE REQUESTED SEPARATELY 35 SHIGA TOXIN 1 NOT DETECTED 36 SHIGA TOXIN 2 NOT DETECTED Method: ImmunoCard STAT/EHEC Rapid Immunochromatographic Assay 37 Negative for toxigenic C. difficile by PCR 38 Baseline (normal) 0.00 - 7.24 Elevated >7.24 An elevated result is indicative of the presence of fecal lactoferrin, a marker of intestinal inflammation. A normal result does not exclude the presence of intestinal inflammation. The test can be used as an in vitro diagnostic aid to distinguish patients with active inflammatory bowel disease (IBD) from those with non-inflammatory irritable bowel syndrome (IBS). Performed at: [facility] [address] [id number] Cardiopulmonary Technician And Eeg Tech: Ivan Rodriguez MD, Phone: [phone] 39 Note: Persistent reduction for 3 months or more in an eGFR <60 mL/min/1.73 m2 defines CKD. Patients with eGFR values >/=60 mL/min/1.73 m2 may also have CKD if evidence of persistent proteinuria is present. The original MDRD equation for estimated GFR is not valid for patients less than 18 years of age. Additional information may be found at www.[email or web address]. Procedures Date Code Description Status 07/27/2018 44099 Spirometry Graphic Record/Max Voluntary Vent Completed 10/29/2016 [id number] Bone Mineral Density Test Completed 09/23/2010 [id number] Colonoscopy Completed Medical Devices Description No Information Available Encounters Type Date Location Provider Dx Diagnosis Office Visit 11/09/2018 11:45a Main Office Rocco Ventura E61.2 Magnesium deficiency J44.9 Chronic obstructive pulmonary disease, unspecified I65.23 Occlusion and stenosis of bilateral carotid arteries K58.0 Irritable bowel syndrome with diarrhea I34.0 Nonrheumatic mitral (valve) insufficiency F02.80 Dementia in oth diseases classd elswhr w/o behavrl disturb K21.9 Gastro-esophageal reflux disease without esophagitis G47.33 Obstructive sleep apnea (adult) (pediatric) R19.7 Diarrhea, unspecified D64.9 Anemia, unspecified I25.10 Athscl heart disease of [place] coronary artery w/o ang pctrs E11.65 Type 2 diabetes mellitus with hyperglycemia E03.9 Hypothyroidism, unspecified E78.5 Hyperlipidemia, unspecified N40.0 Benign prostatic hyperplasia without lower urinry tract symp K73.9 Chronic hepatitis, unspecified E55.9 Vitamin D deficiency, unspecified Office Visit 10/11/2018 10:45a Main Office Rocco Ventura E61.2 Magnesium deficiency J44.9 Chronic obstructive pulmonary disease, unspecified I65.23 Occlusion and stenosis of bilateral carotid arteries K58.0 Irritable bowel syndrome with diarrhea I34.0 Nonrheumatic mitral (valve) insufficiency F02.80 Dementia in oth diseases classd elswhr w/o behavrl disturb K21.9 Gastro-esophageal reflux disease without esophagitis G47.33 Obstructive sleep apnea (adult) (pediatric) Z23 Encounter for immunization Office Visit 09/20/2018 10:00a Main Office Rocco Ventura E61.2 Magnesium deficiency J44.9 Chronic obstructive pulmonary disease, unspecified I65.23 Occlusion and stenosis of bilateral carotid arteries K58.0 Irritable bowel syndrome with diarrhea I34.0 Nonrheumatic mitral (valve) insufficiency F02.80 Dementia in oth diseases classd elswhr w/o behavrl disturb K21.9 Gastro-esophageal reflux disease without esophagitis Office Visit 08/23/2018 11:15a Main Office Rocco Ventura E61.2 Magnesium deficiency J44.9 Chronic obstructive pulmonary disease, unspecified I65.23 Occlusion and stenosis of bilateral carotid arteries K58.0 Irritable bowel syndrome with diarrhea I34.0 Nonrheumatic mitral (valve) insufficiency F02.80 Dementia in oth diseases classd elswhr w/o behavrl disturb K21.9 Gastro-esophageal reflux disease without esophagitis G47.33 Obstructive sleep apnea (adult) (pediatric) R19.7 Diarrhea, unspecified D64.9 Anemia, unspecified I25.10 Athscl heart disease of [place] coronary artery w/o ang pctrs E11.65 Type 2 diabetes mellitus with hyperglycemia E03.9 Hypothyroidism, unspecified Office Visit 07/28/2018 11:15a Main Office Rocco Ventura E61.2 Magnesium deficiency J44.9 Chronic obstructive pulmonary disease, unspecified I65.23 Occlusion and stenosis of bilateral carotid arteries K58.0 Irritable bowel syndrome with diarrhea I34.0 Nonrheumatic mitral (valve) insufficiency F02.80 Dementia in oth diseases classd elswhr w/o behavrl disturb E03.9 Hypothyroidism, unspecified K21.9 Gastro-esophageal reflux disease without esophagitis I11.9 Hypertensive heart disease without heart failure E78.5 Hyperlipidemia, unspecified N40.0 Benign prostatic hyperplasia without lower urinry tract symp G47.33 Obstructive sleep apnea (adult) (pediatric) R19.7 Diarrhea, unspecified D64.9 Anemia, unspecified I25.10 Athscl heart disease of [place] coronary artery w/o ang pctrs I49.1 Atrial premature depolarization E11.9 Type 2 diabetes mellitus without complications K73.9 Chronic hepatitis, unspecified E55.9 Vitamin D deficiency, unspecified Office Visit 06/21/2018 12:30p Main Office Rocco Ventura K58.0 Irritable bowel syndrome with diarrhea J44.9 Chronic obstructive pulmonary disease, unspecified I65.23 Occlusion and stenosis of bilateral carotid arteries I34.0 Nonrheumatic mitral (valve) insufficiency F02.80 Dementia in oth diseases classd elswhr w/o behavrl disturb K21.9 Gastro-esophageal reflux disease without esophagitis E11.9 Type 2 diabetes mellitus without complications E66.09 Other obesity due to excess calories E03.9 Hypothyroidism, unspecified N40.0 Benign prostatic hyperplasia without lower urinry tract symp G47.33 Obstructive sleep apnea (adult) (pediatric) I11.9 Hypertensive heart disease without heart failure E61.2 Magnesium deficiency Assessments Date Code Description Provider 11/09/2018 E61.2 Magnesium deficiency Gamonika, Rocco 11/09/2018 J44.9 Chronic obstructive pulmonary disease, unspecified Gauss, Rocco 11/09/2018 I65.23 Occlusion and stenosis of bilateral carotid arteries Gauss , Rocco 11/09/2018 K58.0 Irritable bowel syndrome with diarrhea Gauss, Rocco 11/09/2018 I34.0 Nonrheumatic mitral (valve) insufficiency Gauss, Rocco 11/09/2018 F02.80 Dementia in other diseases classified elsewhere without Gauss, Rocco behaviora 11/09/2018 K21.9 Gastro-esophageal reflux disease without esophagitis Gauss , Rocco 11/09/2018 G47.33 Obstructive sleep apnea (adult) (pediatric) Gauss, Rocco 11/09/2018 R19.7 Diarrhea, unspecified Gauss, Rocco 11/09/2018 D64.9 Anemia, unspecified Gauss, Rocco 11/09/2018 I25.10 Atherosclerotic heart disease of [place] coronary artery Kamran Ventural without angina pectoris 11/09/2018 E11.65 Type 2 diabetes mellitus with hyperglycemia Gauss, Rocco 11/09/2018 E03.9 Hypothyroidism, unspecified Gauss, Rocco 11/09/2018 E78.5 Hyperlipidemia, unspecified Gauss, Rocco 11/09/2018 N40.0 Benign prostatic hyperplasia without lower urinary Gauss, Rocco tract symptoms 11/09/2018 K73.9 Chronic hepatitis, unspecified Gauss, Rocco 11/09/2018 E55.9 Vitamin D deficiency, unspecified Gauss, Rocco 10/11/2018 E61.2 Magnesium deficiency Gauss, Rocco 10/11/2018 J44.9 Chronic obstructive pulmonary disease, unspecified Gauss, Rocco 10/11/2018 I65.23 Occlusion and stenosis of bilateral carotid arteries Gauss , Rocco 10/11/2018 K58.0 Irritable bowel syndrome with diarrhea Gauss, Rocco 10/11/2018 I34.0 Nonrheumatic mitral (valve) insufficiency Gauss, Rocco 10/11/2018 F02.80 Dementia in other diseases classified elsewhere without Gauss, Rocco behaviora 10/11/2018 K21.9 Gastro-esophageal reflux disease without esophagitis Gauss , Rocco 10/11/2018 G47.33 Obstructive sleep apnea (adult) (pediatric) Pierouss, Rocco 10/11/2018 Z23 Encounter for immunization Lorenzo, Rocco 09/20/2018 E61.2 Magnesium deficiency Gauss, Rocco 09/20/2018 J44.9 Chronic obstructive pulmonary disease, unspecified Gauss, Rocco 09/20/2018 I65.23 Occlusion and stenosis of bilateral carotid arteries Gauss , Rocco 09/20/2018 K58.0 Irritable bowel syndrome with diarrhea Gauss, Rocco 09/20/2018 I34.0 Nonrheumatic mitral (valve) insufficiency Gauss, Rocco 09/20/2018 F02.80 Dementia in other diseases classified elsewhere without Gauss, Rocco behaviora 09/20/2018 K21.9 Gastro-esophageal reflux disease without esophagitis Gauss , Rocco 08/23/2018 E61.2 Magnesium deficiency Gauss, Rocco 08/23/2018 J44.9 Chronic obstructive pulmonary disease, unspecified Gauss, Rocco 08/23/2018 I65.23 Occlusion and stenosis of bilateral carotid arteries Gauss , Rocco 08/23/2018 K58.0 Irritable bowel syndrome with diarrhea Gauss, Rocco 08/23/2018 I34.0 Nonrheumatic mitral (valve) insufficiency Gauss, Rocco 08/23/2018 F02.80 Dementia in other diseases classified elsewhere without Gauss, Rocco behaviora 08/23/2018 K21.9 Gastro-esophageal reflux disease without esophagitis Gauss , Rocco 08/23/2018 G47.33 Obstructive sleep apnea (adult) (pediatric) Gauss, Rocco 08/23/2018 R19.7 Diarrhea, unspecified Gauss, Rocco 08/23/2018 D64.9 Anemia, unspecified Gauss, Rocco 08/23/2018 I25.10 Atherosclerotic heart disease of [place] coronary artery LaKamran frankl without angina pectoris 08/23/2018 E11.65 Type 2 diabetes mellitus with hyperglycemia [facility], Rocco 08/23/2018 E03.9 Hypothyroidism, unspecified Gauss, Rocco 07/28/2018 E61.2 Magnesium deficiency [facility], Rocco 07/28/2018 J44.9 Chronic obstructive pulmonary disease, unspecified Gauss, Rocco 07/28/2018 I65.23 Occlusion and stenosis of bilateral carotid arteries Gauss , Rocco 07/28/2018 K58.0 Irritable bowel syndrome with diarrhea [facility], Rocco 07/28/2018 I34.0 Nonrheumatic mitral (valve) insufficiency Gauss, Rocco 07/28/2018 F02.80 Dementia in other diseases classified elsewhere without Gauss, Rocco behaviora 07/28/2018 E03.9 Hypothyroidism, unspecified Gauss, Rocco 07/28/2018 K21.9 Gastro-esophageal reflux disease without esophagitis Gauss , Rocco 07/28/2018 I11.9 Hypertensive heart disease without heart failure Gauss, Rocco 07/28/2018 E78.5 Hyperlipidemia, unspecified Gauss, Rocco 07/28/2018 N40.0 Benign prostatic hyperplasia without lower urinary Gauss, Rocco tract symptoms 07/28/2018 G47.33 Obstructive sleep apnea (adult) (pediatric) Gauss, Rocco 07/28/2018 R19.7 Diarrhea, unspecified Lorenzo, [facility] 07/28/2018 D64.9 Anemia, unspecified [place], [facility] 07/28/2018 I25.10 Atherosclerotic heart disease of [place] coronary artery Lorenzo Rocco without angina pectoris 07/28/2018 I49.1 Atrial premature depolarization Lorenzo, Rocco 07/28/2018 E11.9 Type 2 diabetes mellitus without complications Lorenzo, [facility] 07/28/2018 K73.9 Chronic hepatitis, unspecified Lorenzo, [facility] 07/28/2018 E55.9 Vitamin D deficiency, unspecified Lorenzo, [facility] 07/27/2018 R06.02 Shortness of breath Lorenzo, [facility] 07/27/2018 J44.9 Chronic obstructive pulmonary disease, unspecified Lorenzo, [facility] 07/27/2018 R05 Cough Pieromonika, [facility] 06/21/2018 K58.0 Irritable bowel syndrome with diarrhea Lorenzo [facility] 06/21/2018 J44.9 Chronic obstructive pulmonary disease, unspecified Gamonika, [facility] 06/21/2018 I65.23 Occlusion and stenosis of bilateral carotid arteries Lorenzo [facility] 06/21/2018 I34.0 Nonrheumatic mitral (valve) insufficiency Lorenzo, [facility] 06/21/2018 F02.80 Dementia in other diseases classified elsewhere without Rocco Ventura behaviora 06/21/2018 K21.9 Gastro-esophageal reflux disease without esophagitis Lorenzo [facility] 06/21/2018 E11.9 Type 2 diabetes mellitus without complications Lorenzo Rocco 06/21/2018 E66.09 Other obesity due to excess calories Lorenzo Rocco 06/21/2018 E03.9 Hypothyroidism, unspecified Lorenzo, [facility] 06/21/2018 N40.0 Benign prostatic hyperplasia without lower urinary Rocco Ventura tract symptoms 06/21/2018 G47.33 Obstructive sleep apnea (adult) (pediatric) Lorenzo Rocco 06/21/2018 I11.9 Hypertensive heart disease without heart failure Lorenzo [facility] 06/21/2018 E61.2 Magnesium deficiency Rocco Ventura Plan of Treatment Future Appointment(s):02/22/2019 8:00 am - Nurse at Main Qygudc6902/28/2019 10: 00 am - Rocco Ventura at Main Inytdd8512/05/2018 10:30 am - Rocco Ventura at Main Joevis0009/20/2018 - Kamran VenturaNikky61.2 Magnesium qlnlmbbfxrH55.9 Chronic obstructive pulmonary disease, unspecifiedComments:Discussed importance of excersize and avoidance of all smoke. Enviromental factors that can spark exacerbations reviewed. The necessity of reporting any changes in condition, early intervention in exacerbations and proper useand the importance of compliance with medications. Reports if applicable of home care providers, and equipment suppliers and Respiratory Therapy reviewed.I65.23 Occlusion and stenosis of bilateral carotid arteriesComments:Discussed role of life style choices in dietary fats and exercise plays on evolution of [place] disease and importance of controlling cholesterol. Medications role and side effects in disease progression prevention discussed and need for compliance with prescribed treatment. Follow up testing for progression such as ultrasound surveillance [id number] Irritable bowel syndrome with wofkrmzwP19.0 Nonrheumatic mitral (valve) insufficiencyComments:Issues of symptoms and aggravating lifestyle factors such as sleep, stress and dietary choices discussed. Symptoms and medication treatment and compliance and side effects discussed as needed. Need forSBE prophalaxis with antibiotics addressed and discussed where indicated. Follow up Echocardiogram as required.Discussed valvular pathology and need if indicated for antibiotic prophylaxis to prevent S.B.E. Medication compliance and side effects issues addressed. Follow up echocardiogram as warranted.Results of 2D echo and other testing reviewed and discussed with patient possible etiologies, progression prognosis and need for prophylactic antibiotics before dental procedures if warranted for S.B.E. prophylaxis. Routine follow up/ surveillance planned.F02.80 Dementia in other diseases classified elsewhere without whdrwsvcuZ36.9 Gastro-esophageal reflux disease without esophagitisComments:Discussed role of diet and excersize and weight reduction and contribution of common exacerbating factors/ substances such as stress/fatigue/caffeine/nicotine/chocolate/ foods.Signs and symptoms of disease progression discussed as well as necessity to promptly report changes or worsening and the need for medication compliance. Periodic measurement and follow up for serum Magnesium levels while on PPI. Functional Status Description No Information Available Mental Status Description No Information Available Referrals Description No Information Available
--- OUTSIDE RECORDS SUMMARY | 2018-12-02 15:17 | XMS REPORT | Continuity of Care Document ---
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 Problems Provider Date Hyperlipidemia Rocco [...] & D Zinc Oxide Apply Twice 45gm [facility] 07/28/2018 Cream Daily as Needed Paroxetine HCL 1 by mouth every 90tabs [facility] 10[facility] day Tablets Vitamin B-12 1 by mouth every 90tabs [facility] 02/01/2018 Natural day 500mcg Tablets Magnesium one tablet twice 180caps E83.40 [facility] 11/15/2017 500mg Capsules a day Vitamin D3 1 by mouth every 90caps [facility] 06/04/2015 5000Unit day Capsules Cpap Mask And Supples as directed Kamran Ventural 05/31/2014 [place] 3 2 by mouth every 180caps [facility] 04/18/2014 1000mg Capsules day Cpap Machine Please dispense Rocco Ventura 05/04/2012 a mask, hose and filter. Dx Sleep Apnea Flomax 1 by mouth every 90caps [facility] 09/16/2010 0.4mg Capsules day Bystolic 1 by mouth every 90tabs [facility] 04/26/2009 5mg Tablets day Lipitor 1 by mouth every 90tabs [facility] 04/26/2009 40mg Tablets day Tricor 1 by mouth every 90tabs [facility] 04/26/2009 145mg Tablets day Altace 1qd - take one 90caps [facility] 04/26/2009 10mg Capsules capsule by mouth every day Dexilant 1 by mouth every 90caps [facility] 60mg Capsules DR day Viberzi 1 by mouth twice 180tabs [facility] 100mg Tablets a day History Medications A & D Cream Apply Twice Daily as Needed 45gm Idmonika Rocco 06/21/2018 - Immunizations CPT Code Status Date Vaccine Lot # [id number] Given 10/11/2018 Influenza Virus (Afluria) Split Virus 3 Years [id number] Of Age And Older 40946 Given 10/11/2018 Influenza Virus Vaccine, Quadrivalent, Split, Preservative Free [id number] Given 11/15/2017 Tetanus,Diphtheria,Adut/Adol Pertussis [id number] Q2035 Given 11/08/2017 Influenza Virus (Afluria) Split Virus 3 Years Of Age And Older Q2035 Given 10/30/2016 Influenza Virus (Afluria) Split Virus 3 Years Of Age And Older 35638 Given 09/03/2016 Pneumococcal Conjugate Vaccine 13 Valent For [id number] Intramuscular Use Q2037 Given 11/11/2015 Influenza Vaccine (Fluvirin) 3 Years Of Age Or [id number] Older Q2035 Given 10/16/2014 Influenza Virus (Afluria) Split Virus 3 Years [id number] Of Age And Older 29080 Given 01/02/2014 Pneumovax Polyvalent Inj Im Q2037 Given 12/05/2013 Influenza Vaccine (Fluvirin) 3 Years Of Age Or Older Q2035 Given 11/16/2012 Influenza Virus (Afluria) Split Virus 3 Years Of Age And Older Q2035 Given 11/16/2012 Influenza Virus (Afluria) Split Virus 3 Years [id number] Of Age And Older Q2037 Given 12/01/2011 Influenza Vaccine (Fluvirin) 3 Years Of Age Or [id number] Older Q2036 Given 12/30/2010 Flulaval [id number] 69100 Given 12/30/2010 Influenza Vaccine [id number] Given 05/12/2010 Tetanus Shot 42918 Given 11/05/2009 Influenza Vaccine [id number] 22389 Given 11/15/2008 [place] [address] Given Unknown Zostavax Vital Signs Date Vital [...] Result H/L Range Note TSH Reflex 11/23/2018 [facility] Thyroid Stim 0.77 uIU/mL Normal 0.30-4.20 1 FT4 And/Or [address] Hormone FT3 [place] [address] [phone] Reflex add FT3? N Reflex add FT4? N LDL Cholesterol 11/23/2018 [facility] Cholesterol 172 mg/dL <200 [address] [place], [place] [id number] [phone] Triglycerides 191 mg/dL High <150 3 HDL Cholesterol 35 mg/dL Low >40 4 LDL-Cholesterol 99 mg/dL < 100 5 Reflex add FT3? N Reflex add FT4? N Magnesium 11/23/2018 [facility] Magnesium 1.8 mg/dL Normal 1.8-2.[address] [place], [place] [address] [phone] Reflex add FT3? N Reflex add FT4? N Comprehensive 11/23/2018 [facility] Glucose 135 mg/ dL High 74-106 Metabolic Panel [address] [place] [address] [phone] BUN 33 mg/dL High 7-18 Creatinine 1.7 [...] N Reflex add FT4? N Glycohemoglobin 11/23/2018 [facility] Glycohemoglobin 6.5 % High 4.2-6.3 [address] (A1c) [place], [place] [id number] [phone] eAG 140 mg/dL Laboratory test 11/23/2018 [facility] Glycohemoglobin A1c <pending> finding [address] [place], [place] [id number] [phone] TSH Reflex FT4 And/Or FT3 <pending> CBS W/Automated 11/23/2018 [facility] White 4.5 K/uL Normal 3.4-10.[address] [place] [address] Count [phone] Red Blood Count 4.46 M/uL Normal 4.20-5.80 [...] 33.0-73.0 Lymph % 34.2 % Normal 20.0-42.0 [place] % 6.3 % Normal 0.0-10.0 Eo% 3.8 % Normal 0.0-6.6 Bas% 1.3 % High 0.0-1.1 Immature Grans 0.2 % Normal 0.0-5.0 NRBC % 0.0 /100WBC < 10/ 100 WBC Neut# 2.43 K/uL Normal 1.8-7.0 Lymph # 1.53 K/uL Normal 1.0-4.0 [place] # 0.28 K/uL Normal 0.0-0.8 Eos # 0.17 K/uL Normal 0.0-0.5 Baso # 0.06 K/uL Normal 0.0-0.1 Immature Grans Absolute 0.01 K/uL NRBC # 0.00 K/uL Direct LDL 11/23/2018 [facility] LDL Chol. 97 mg/dL 0-[address] (Direct) [place] [address] [phone] Laboratory test 11/23/2018 [facility] Prostatic Acid 1.1 ng/mL 0.0-3.5 [address] Phos,[place] [address] [phone] Vitamin D,25-Hydroxy 44.9 ng/mL 30.0-100.0 9 Laboratory 11/23/2018 [facility] Magnesium <pending> test finding [address] [place] [address] [phone] Laboratory 08/17/2018 [facility] Free T4 1.0 ng/dL . 10, test finding [address] Dialysis/Mass [address] [place] [address] Spect [phone] Laboratory 08/17/2018 [facility] Vitamin 37.4 ng/mL 30.0-100.0 12 test finding [address] D,25[place] [address] [phone] Hepatitis 08/17/2018 [facility] Hepatitis A Negative Negative Evaluation [address] [place] [address] [phone] HBsAg Screen [Ref Lab] Negative Negative Hepatitis B Core IgM Negative Negative HCV Signal/Cutoff ratio < 0.1 s/corat 0.0-0.9 13 Laboratory test 08/17/2018 [facility] Thyroid Stim 4.89 uIU/mL High 0.30-4.[address] [place] [address] [phone] Free T4 0.93 ng/dL Normal 0.76-1.46 LDL Cholesterol 08/17/2018 [facility] Cholesterol 180 mg/dL <200 [address] [place] [address] [phone] Triglycerides 330 mg/dL High <150 15 HDL Cholesterol 31 mg/dL Low >40 16 LDL-Cholesterol 83 mg/dL < 100 17 Laboratory test 08/17/2018 [facility] Magnesium 1.6 mg/dL Low 1.8-2.[address] [place] [address] [phone] Comprehensive 08/17/2018 [facility] Glucose 147 mg/ dL High 74-106 Metabolic Panel [address] [place] [address] [phone] BUN 36 mg/dL High 7-18 Creatinine 1.3 [...] 40 U/L Low 45-117 CBS W/Automated 08/17/2018 [facility] White 4.3 K/uL Normal 3.4-10.[address] [place] [address] Count [phone] Red Blood Count 4.40 M/uL Normal 4.20-5.80 [...] 33.0-73.0 Lymph % 34.8 % Normal 20.0-42.0 [place] % 6.7 % Normal 0.0-10.0 Eo% 4.9 % Normal 0.0-6.6 Bas% 0.9 % Normal 0.0-1.1 Immature Grans 0.2 % Normal 0.0-5.0 NRBC % 0.0 /100WBC < 10/ 100 WBC Neut# 2.26 K/uL Normal 1.8-7.0 Lymph # 1.50 K/uL Normal 1.0-4.0 [place] # 0.29 K/uL Normal 0.0-0.8 Eos # 0.21 K/uL Normal 0.0-0.5 Baso # 0.04 K/uL Normal 0.0-0.1 Immature Grans Absolute 0.01 K/uL NRBC # 0.00 K/uL Glycohemoglobin 08/17/2018 [facility] Glycohemoglobin 7.2 % High 4.2-6.3 [address] (A1c) [place], [place] [address] [phone] eAG 160 mg/dL Laboratory test 07/20/2018 [facility] Magnesium 1.3 Low 1.8-2.4 [address] mg/[place] [address] [phone] Glycohemoglobin 07/20/2018 [facility] Glycohemoglobin 7.4 % High 4.2-6.3 [address] (A1c) [place] [address] [phone] eAG 166 mg/dL Comprehensive 07/20/2018 [facility] Glucose 160 mg/ dL High 74-106 Metabolic Panel [address] [place] [address] [phone] BUN 27 mg/dL High 7-18 Creatinine 1.1 [...] 44 U/L Low 45-117 CBS W/Automated 07/20/2018 [facility] White 4.0 K/uL Normal 3.4-10.[address] [place] [address] Count [phone] Red Blood Count 4.45 M/uL Normal 4.20-5.80 [...] 33.0-73.0 Lymph % 35.8 % Normal 20.0-42.0 [place] % 6.8 % Normal 0.0-10.0 Eo% 4.3 % Normal 0.0-6.6 Bas% 1.3 % High 0.0-1.1 Immature Grans 0.5 % Normal 0.0-5.0 NRBC % 0.0 /100WBC < 10/ 100 WBC Neut# 2.06 K/uL Normal 1.8-7.0 Lymph # 1.43 K/uL Normal 1.0-4.0 [place] # 0.27 K/uL Normal 0.0-0.8 Eos # 0.17 K/uL Normal 0.0-0.5 Baso # 0.05 K/uL Normal 0.0-0.1 Immature Grans Absolute 0.02 K/uL NRBC # 0.00 K/uL Laboratory test 07/20/2018 [facility] Thyroid Stim 4.21 uIU/mL High 0.30-4.[address] [place] [address] [phone] Free T4 0.90 ng/dL Normal 0.76-1.46 Ua RFX Micro & 06/11/2018 [facility] Urine Color YELLOW Yellow 23 Culture II [address] [place] [address] [phone] Urine Clarity CLEAR Clear Urine Glucose - Dipstick NEGATIVE mg/dL Negative Urine Bilirubin - Dipstick NEGATIVE Negative Urine Ketone NEGATIVE mg/dL Negative Urine Specific [place] <= 1.005 Low 1.010-1.030 Urine Blood NEGATIVE Negative Urine PH 6.0 Low 6.5-7.5 Urine Protein - Dipstick NEGATIVE mg/dL Negative Urine Urobilinogen - Dipstick 0.2 E.U./dL Normal 0.2-1.0 Urine Nitrite - Dipstick NEGATIVE Negative Urine Leuk Esterase NEGATIVE Negative Source: URINE, CLEAN CAT <SEE NOTE> 24 Hepatitis 06/11/2018 [facility] Hepatitis A Negative Negative Evaluation [address] [place] [address] [phone] HBsAg Screen [Ref Lab] Negative Negative Hepatitis B Core IgM Negative Negative HCV Signal/Cutoff ratio < 0.1 s/corat 0.0-0.9 25 Smear For WBC'S 06/11/2018 [facility] Smear For WBC'S RARE [address] [place] [address] [phone] Smear Source: STOOL Specimen Source: STOOL Ova & Parasite 06/11/2018 [facility] Cryptosporidium NEGATIVE FOR 26 Antigen Screen [address] Specific Ag CRY <[place] [address] NOTE> [phone] Giardia Specific Antigen NEGATIVE FOR BENI <SEE NOTE> 27 Stool Culture 06/11/2018 [facility] Stool Culture NO ENTERIC PATHO [address] <SEE NOTE> [place], [place] [address] [phone] . ................ <SEE NOTE> 29 Note: INCLUDES TESTING <SEE NOTE> 30 . PLESIOMONAS, CAM <SEE NOTE> 31 . ................ <SEE NOTE> 32 . YERSINIA AND VIB <SEE NOTE> 33 . SHOULD BE REQUES <SEE NOTE> 34 Shiga Toxin 1 Antigen SHIGA TOXIN 1 NO <SEE NOTE> 35 Shiga Toxin 2 Antigen SHIGA TOXIN 2 NO <SEE NOTE> 36 Laboratory test 06/11/2018 [facility] C. Difficile Negative for [address] Toxin B By PCR tox <[place] [address] NOTE> [phone] Laboratory test 06/11/2018 [facility] Lactoferrin, 4.57 0.[address] Stool Quant ug/mL(g) -7.2 [place] [address] 4 [phone] CBS W/Automated 06/11/2018 [facility] White Blood 4.6 K/uL Normal 3.4- Diff [address] Count 10.5 [place] [address] [phone] Red Blood Count 4.33 M/uL Normal 4.20-5.80 [...] 33.0-73.0 Lymph % 37.9 % Normal 20.0-42.0 [place] % 7.5 % Normal 0.0-10.0 Eo% 4.2 % Normal 0.0-6.6 Bas% 0.7 % Normal 0.0-1.1 Immature Grans 0.4 % Normal 0.0-5.0 NRBC % 0.0 /100WBC < 10/ 100 WBC Neut# 2.25 K/uL Normal 1.8-7.0 Lymph # 1.73 K/uL Normal 1.0-4.0 [place] # 0.34 K/uL Normal 0.0-0.8 Eos # 0.19 K/uL Normal 0.0-0.5 Baso # 0.03 K/uL Normal 0.0-0.1 Immature Grans Absolute 0.02 K/uL NRBC # 0.00 K/uL Comprehensive 06/11/2018 [facility] Glucose 129 mg/ dL High 74-106 Metabolic Panel [address] [place], [place] [address] [phone] BUN 19 mg/dL High 7-18 Creatinine 1.2 [...] 43 U/L Low 45-117 Laboratory test 06/11/2018 [facility] Lipase 81 U/L Normal 56-[address] [place] [address] [phone] 1 I34.0, D64.9, E78.5, E61.2, 03.9 2 [...] for more aggressive treatment of glycemia. The [place] [employer] recommends that a primary goal of therapy should be a HbA1c of <7% and that physicians should re-evaluate the treatment regimen in patients with HbA1c values consistently >8%. 8 adSagete 2000 methodology. Values obtained with different assay methods or kits cannot be used interchangeably. Results cannot be interpreted as absolute evidence of the presence or absence of malignant disease. Performed at: - [facility] [id number] Smooth Plater: Jannie Luna MD, Phone: [phone] Performed at: - [facility] [id number] Smooth Plater: Ivan Rodriguez MD, Phone: [phone] Vitamin D deficiency has been defined by the [place] of [employer] and an Endocrine Society practice guideline as a level of serum 25-OH vitamin D less than 20 ng/mL (1,2). The Endocrine Society went on to further define vitamin D insufficiency as a level between 21 and 29 ng/mL (2). 1. IOM ([place] [employer]). 2010. Dietary reference intakes for calcium and D. [place]: The National Academies Press. 2. Kathryn PETE, Sheri HERNANDEZ, Oly VILLARREAL, et al. Evaluation, treatment, and prevention of vitamin D deficiency: an Endocrine Society clinical practice guideline. JCEM. 2010; 96(7):1911-30. Performed at: - [facility] [id number] Smooth Plater: Jannie Luna MD, Phone: [phone] 10 NO DX 11 Reference Range: Pubertal Children and Adults: 0.8 - 1.7 Performed at: [facility] [address] [place] [id number] Smooth Plater: Ron Pastor MD, Phone: [phone] 12 Vitamin D deficiency has been defined by the [place] [employer] and an Endocrine Society practice guideline as a level of serum 25-OH vitamin D less than 20 ng/mL (1,2). The Endocrine Society went on to further define vitamin D insufficiency as a level between 21 and 29 ng/mL (2). 1. IOM ([place] [employer]). 2010. Dietary reference intakes for calcium and D. [place]: The National Academies Press. 2. Sheri Stevenson, Oly VILLARREAL, et al. Evaluation, treatment, and prevention of vitamin D deficiency: an Endocrine Society clinical practice guideline. JCEM. 2010; 96(7):1911-30. Performed at: [facility] [id number] Smooth Plater: Jannie Luna MD, Phone: [phone] INFCE Result Units: s/co ratio Negative: < 0.8 Indeterminate: 0.8 - 0.9 Positive: > 0.9 The CDC recommends that a positive HCV antibody result be followed up with a HCV Nucleic Acid Amplification test (118153). Performed at: [facility] [id number] Smooth Plater: Jannie Luna MD, Phone: [phone] 14 Reference Guidelines*: Desirable: ........... < 200 [...] for more aggressive treatment of glycemia. The [place] Diabetes Association recommends that a primary goal of therapy should be a HbA1c of <7% and that physicians should re-evaluate the treatment regimen in patients with HbA1c values consistently >8%. 20 E06.9 E07.9 E78.2 E03.9 E83.40 E11.9 21 Elevated levels of HbA1c suggest the need for more aggressive treatment of glycemia. The [place] [employer] Association recommends that a primary goal [...] with a HCV Nucleic Acid Amplification test (313043). Performed at: - [facility] [id number] Smooth Plater: Jannie Luna MD, Phone: [phone] NEGATIVE FOR CRYPTOSPORIDIUM SPECIFIC ANTIGEN 27 [...] non-inflammatory irritable bowel syndrome (IBS). Performed at: [facility] [id number] Smooth Plater: Ivan Rodriguez MD, Phone: [phone] Note: Persistent reduction for 3 months [...] [email or web address]. Procedures Date Code Description Status 07/27/2018 70609 Spirometry Graphic Record/Max Voluntary Vent Completed 10/29/2016 099668905 Bone Mineral Density Test Completed 09/23/2010 58656949 Colonoscopy Completed Medical Devices Description No Information [...] Anemia, unspecified I25.10 Athscl heart disease of [place] coronary artery w/o ang pctrs E11.65 Type [...] Anemia, unspecified I25.10 Athscl heart disease of [place] coronary artery w/o ang pctrs E11.65 Type [...] Anemia, unspecified I25.10 Athscl heart disease of [place] coronary artery w/o ang pctrs I49.1 Atrial [...] Rocco 11/09/2018 I25.10 Atherosclerotic heart disease of [place] coronary artery Kamran Ventural without angina pectoris [...] 10/11/2018 G47.33 Obstructive sleep apnea (adult) (pediatric) Gauss, Rocco 10/11/2018 Z23 Encounter for immunization [facility], Rocco 09/20/2018 E61.2 Magnesium deficiency Gauss, Rocco [...] Rocco 08/23/2018 I25.10 Atherosclerotic heart disease of [place] coronary artery Idmonika, Rocco without angina pectoris 08/23/2018 E11.65 Type 2 diabetes mellitus with hyperglycemia Gauss, Rocco 08/23/2018 E03.9 Hypothyroidism, unspecified Gauss, Rocco 07/28/2018 E61.2 Magnesium deficiency Gauss, Rocco 07/28/2018 J44.9 Chronic obstructive pulmonary disease, unspecified Gauss, Rocco 07/28/2018 I65.23 Occlusion and stenosis of bilateral carotid arteries Gauss , Rocco 07/28/2018 K58.0 Irritable bowel syndrome with diarrhea [facility], Rocco 07/28/2018 I34.0 Nonrheumatic mitral (valve) [...] Gauss, Rocco 07/28/2018 R19.7 Diarrhea, unspecified Lorenzo, [facility] 07/28/2018 D64.9 Anemia, unspecified Lorenzo, [facility] 07/28/2018 I25.10 Atherosclerotic heart disease of [place] coronary artery Lorenzo Rocco without angina pectoris 07/28/2018 I49.1 Atrial premature depolarization Lorenzo, Rocco 07/28/2018 E11.9 Type 2 diabetes mellitus without complications Lorenzo, Rocco 07/28/2018 K73.9 Chronic hepatitis, unspecified Lorenzo, [facility] 07/28/2018 E55.9 Vitamin D deficiency, unspecified Pieromonika, [facility] 07/27/2018 R06.02 Shortness of breath Lorenzo, [facility] 07/27/2018 J44.9 Chronic obstructive pulmonary disease, unspecified Lorenzo, [facility] 07/27/2018 R05 Cough Pieromonika, [facility] 06/21/2018 K58.0 Irritable bowel syndrome with diarrhea Lorenzo [facility] 06/21/2018 J44.9 Chronic obstructive pulmonary disease, unspecified Lorenzo[facility] 06/21/2018 I65.23 Occlusion and stenosis of bilateral carotid arteries Lorenzo Rocco 06/21/2018 I34.0 Nonrheumatic mitral (valve) insufficiency [facility] 06/21/2018 F02.80 Dementia in other diseases classified elsewhere without Rococ Ventura behaviora 06/21/2018 K21.9 Gastro-esophageal reflux disease without esophagitis Lorenzo Rocco 06/21/2018 E11.9 Type 2 diabetes mellitus without complications Lorenzo Rocco 06/21/2018 E66.09 Other obesity due to excess calories Kamran Ventural 06/21/2018 E03.9 Hypothyroidism, unspecified Lorenzo [facility] 06/21/2018 N40.0 Benign prostatic hyperplasia without lower urinary Rocco Ventura tract symptoms 06/21/2018 G47.33 Obstructive sleep apnea (adult) (pediatric) Lorenzo Rocco 06/21/2018 I11.9 Hypertensive heart disease without heart failure Lorenzo [facility] 06/21/2018 E61.2 Magnesium deficiency Rocco Ventura Plan of Treatment Future Appointment(s):12/05/2018 10:30 am - Rocco Ventura at Main [id number] 9:30 am - Nurse at Main [id number]/13/2019 11:00 am - Rocco Ventura at Main [id number]/20/2018 - Kamran VenturaNikky61.2 Magnesium slocdotwjfI12.9 Chronic obstructive pulmonary disease, unspecifiedComments:Discussed importance of [...] fats and exercise plays on evolution of [place] disease and importance of controlling cholesterol. Medications role and side effects in disease progression prevention discussed and need for compliance with prescribed treatment. Follow up testing for progression such as ultrasound surveillance xhvutxchU19.0 Irritable bowel syndrome with okptombbW62.0 Nonrheumatic mitral (valve) insufficiencyComments:Issues of symptoms and [...] Dementia in other diseases classified elsewhere without fgpdlybnyC60.9 Gastro-esophageal reflux disease without esophagitisComments:Discussed role of [...]
--- OUTSIDE RECORDS SUMMARY | 2018-12-02 15:17 | XMS REPORT | Continuity of Care Document ---
:1950 External Reference #:[id number] Author Name Lissett Jaquez NP Address [address] [place] [address] Care Team Providers Name Role Phone Rocco Ventura MD - Internal Medicine Care Team Information Histology Tech Problems Description No Information Available Social History Type Date Description Comments Sex Unknown Tobacco Use Start: Unknown Never Smoked Cigarettes ETOH Use Never used alcohol Recreational Drug Use Negative For Never Used Drugs Allergies, Adverse Reactions, Alerts Active Allergies Reaction Severity Comments Date Latex 06/12/2009 Aspirin 10/04/2009 Penicillin 10/04/2009 Levofloxacin 11/21/2018 Medications Active Medications SIG Qnty Indications Ordering Provider Date Bystolic Unknown 5mg Tamsulosin HCL qday Unknown 0.4mg Capsules Multivitamins With qday Unknown Minerals Tablets Paroxetine HCL 1 tablet at Unknown 20mg Tablets night Atorvastatin Calcium 1 po qday, at Unknown 40mg night Tablets Fenofibrate 1 po qd, at Unknown 145mg Tablets night Vitamin D3 daily Unknown 1000Unit Capsules Ramipril at night Unknown 10mg Capsules Vitamin B12 daily Unknown 1000mcg Tablets ER Dexilant Unknown 60mg Capsules DR King 3 Unknown 1Gram Capsules [id number] Unknown 64mg Tablets Levothyroxine Sodium 1 tab. qday Unknown 150mcg Tablets Viberzi Unknown 100mg Tablets Metformin HCL ER Unknown 750mg Tablets ER 24HR Immunizations Description No Information Available Vital Signs Date Vital Result Comment 11/21/2018 3:49pm Weight 213.00 lb Height 67.5 inches 5'7.50" BMI (Body Mass Index) 32.9 kg/m2 BP Systolic 128 mmHg BP Diastolic 71 mmHg Heart Rate 60 /min O2 % BldC Oximetry 92 % Body Temperature 97.0 F Proctor Score 4 Pain Level 0 11/05/2017 9:18am Weight 221.00 lb Height 67.5 inches 5'7.50" BMI (Body Mass Index) 34.1 kg/m2 BP Systolic 145 mmHg BP Diastolic 66 mmHg Heart Rate 57 /min O2 % BldC Oximetry 93 % Body Temperature 96.2 F Proctor Score 4 Pain Level 0 Results Description No Information Available Procedures Description No Information Available Medical Devices Description No Information Available Encounters Type Date Location Provider Dx Diagnosis Office Visit 11/21/2018 Main Office Lissett Jaquez, G47.33 Obstructive sleep 4:15p [employer] apnea (adult) (pediatric) Assessments Date Code Description Provider 11/21/2018 G47.33 Obstructive sleep apnea (adult) (pediatric) Lissett Jaquez NP Plan of Treatment Future Appointment(s):11/22/2019 11:15 am - Lissett Jaquez NP at Main Office Functional Status Description No Information Available Mental Status Description No Information Available Referrals Description No Information Available
--- OUTSIDE RECORDS SUMMARY | 2018-12-02 15:18 | XMS REPORT | Continuity of Care Document ---
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 Active Problems Provider Date Hyperlipidemia Rocco [...] smoked Recreational Drug Use Never Used Drugs Smoking Status Reviewed: 11/24/16 Patient has never smoked Allergies, Adverse Reactions, Alerts Active Allergies Reaction [...] & D Zinc Oxide Apply Twice 45gm [facility] 07/28/2018 Cream Daily as Needed Paroxetine HCL 1 by mouth every 90tabs [facility] 10[facility] day Tablets Vitamin B-12 1 by mouth every 90tabs [facility] 02/01/2018 Natural day 500mcg Tablets Magnesium one tablet twice 180caps E83.40 [facility] 11/15/2017 500mg Capsules a day Vitamin D3 1 by mouth every 90caps [facility] 06/04/2015 5000Unit day Capsules Cpap Mask And Supples as directed Lorenzo Rocco 05/31/2014 [place] 3 2 by mouth every 180caps [facility] 04/18/2014 1000mg Capsules day Cpap Machine Please dispense Lorenzo Rocco 05/04/2012 a mask, hose and filter. Dx Sleep Apnea Flomax 1 by mouth every 90caps [facility] 09/16/2010 0.4mg Capsules day Bystolic 1 by mouth every 90tabs [facility] 04/26/2009 5mg Tablets day Lipitor 1 by mouth every 90tabs [facility] 04/26/2009 40mg Tablets day Tricor 1 by mouth every 90tabs [facility] 04/26/2009 145mg Tablets day Altace 1qd - take one 90caps [facility] 04/26/2009 10mg Capsules capsule by mouth every day Dexilant 1 by mouth every 90caps [facility] 60mg C[address] day Viberzi 1 by mouth twice 180tabs [facility] 100mg Tablets a day History Medications A & D Cream Apply Twice Daily as Needed 45gm [facility] Rocco 06/21/2018 - Immunizations CPT Code Status Date Vaccine Lot # [id number] Given 10/11/2018 Influenza Virus (Afluria) Split Virus 3 Years [id number] Of Age And Older 26137 Given 10/11/2018 Influenza Virus Vaccine, Quadrivalent, Split, Preservative Free [id number] Given 11/15/2017 Tetanus,Diphtheria,Adut/Adol Pertussis [id number] Q2035 Given 11/08/2017 Influenza Virus (Afluria) Split Virus 3 Years Of Age And Older Q2035 Given 10/30/2016 Influenza Virus (Afluria) Split Virus 3 Years Of Age And Older 33270 Given 09/03/2016 Pneumococcal Conjugate Vaccine 13 Valent For [id number] Intramuscular Use Q2037 Given 11/11/2015 Influenza Vaccine (Fluvirin) 3 Years Of Age Or [id number] Older Q2035 Given 10/16/2014 Influenza Virus (Afluria) Split Virus 3 Years [id number] Of Age And Older 29670 Given 01/02/2014 Pneumovax Polyvalent Inj Im Q2037 Given 12/05/2013 Influenza Vaccine (Fluvirin) 3 Years Of Age Or Older Q2035 Given 11/16/2012 Influenza Virus (Afluria) Split Virus 3 Years Of Age And Older Q2035 Given 11/16/2012 Influenza Virus (Afluria) Split Virus 3 Years [id number] Of Age And Older Q2037 Given 12/01/2011 Influenza Vaccine (Fluvirin) 3 Years Of Age Or [id number] Older Q2036 Given 12/30/2010 Flulaval [id number] Given 12/30/2010 Influenza Vaccine 74585 Given 05/12/2010 Tetanus Shot 67740 Given 11/05/2009 Influenza Vaccine [id number] 71676 Given 11/15/2008 [place] [address] Given Unknown Zostavax Vital Signs Date Vital Result Comment 11/09/2018 11:39am BP Systolic 110 mmHg BP Diastolic 60 mmHg Height 68 inches 5'8" Weight 213.00 lb BMI (Body Mass Index) 32.4 kg/m2 10/11/2018 10:41am BP Systolic 102 mmHg BP Diastolic 58 mmHg Heart Rate 45 /min Height 68 inches 5'8" Weight 214.00 lb BMI (Body Mass Index) 32.5 kg/m2 O2 % BldC Oximetry 91 % Results Test Date Facility Test Result H/L Range Note Laboratory test 08/17/2018 [facility] Free T4 1.0 ng/ dL . 1, [address] Dialysis/[place] [address] Spect [phone] Laboratory test 08/17/2018 [facility] Vitamin 37.4 ng /mL 30.0-100.0 [address] D,25-[place] [address] [phone] Hepatitis 08/17/2018 [facility] Hepatitis A Negative Negative Evaluation [address] [place] [place] [address] [phone] HBsAg Screen [Ref Lab] Negative Negative Hepatitis B Core IgM Negative Negative HCV Signal/Cutoff ratio < 0.1 s/corat 0.0-0.9 4 Laboratory test 08/17/2018 [facility] Thyroid Stim 4.89 uIU/mL High 0.30-4.[address] Hormone [place], [place] [address] [phone] Free T4 0.93 ng/dL Normal 0.76-1.46 LDL Cholesterol 08/17/2018 [facility] Cholesterol 180 mg/dL <200 [address] [place] [address] [phone] Triglycerides 330 mg/dL High <150 6 HDL Cholesterol 31 mg/dL Low >40 7 LDL-Cholesterol 83 mg/dL < 100 8 Laboratory test 08/17/2018 [facility] Magnesium 1.6 mg/dL Low 1.8-2.[address] [place] [address] [phone] Comprehensive 08/17/2018 [facility] Glucose 147 mg/ dL High 74-106 Metabolic Panel [address] [place] [address] [phone] BUN 36 mg/dL High 7-18 Creatinine 1.3 mg/dL Normal 0.6-1.3 Glom Filtration Rate, Estimate 59 mL/min >60 If >60 mL/min >60 9 BUN/Creat 27.6 ratio Sodium 138 mmol/L Normal [...] 40 U/L Low 45-117 CBS W/Automated 08/17/2018 [facility] White 4.3 K/uL Normal 3.4-10.[address] [place] [address] Count [phone] Red Blood Count 4.40 M/uL Normal 4.20-5.80 [...] 33.0-73.0 Lymph % 34.8 % Normal 20.0-42.0 [place] % 6.7 % Normal 0.0-10.0 Eo% 4.9 % Normal 0.0-6.6 Bas% 0.9 % Normal 0.0-1.1 Immature Grans 0.2 % Normal 0.0-5.0 NRBC % 0.0 /100WBC < 10/ 100 WBC Neut# 2.26 K/uL Normal 1.8-7.0 Lymph # 1.50 K/uL Normal 1.0-4.0 [place] # 0.29 K/uL Normal 0.0-0.8 Eos # 0.21 K/uL Normal 0.0-0.5 Baso # 0.04 K/uL Normal 0.0-0.1 Immature Grans Absolute 0.01 K/uL NRBC # 0.00 K/uL Glycohemoglobin 08/17/2018 [facility] Glycohemoglobin 7.2 % High 4.2-6.3 [address] (A1c) [place] [address] [phone] eAG 160 mg/dL Laboratory test 07/20/2018 [facility] Magnesium 1.3 Low 1.8-2.4 [address] mg/[place] [address] [phone] Glycohemoglobin 07/20/2018 [facility] Glycohemoglobin 7.4 % High 4.2-6.3 [address] (A1c) [place] [address] [phone] eAG 166 mg/dL Comprehensive 07/20/2018 [facility] Glucose 160 mg/ dL High 74-106 Metabolic Panel [address] [place] [address] [phone] BUN 27 mg/dL High 7-18 Creatinine 1.1 mg/dL Normal 0.6-1.3 Glom Filtration Rate, Estimate >60 mL/min >60 If >60 mL/min >60 13 BUN/Creat 24.5 ratio Sodium 138 mmol/L Normal [...] 44 U/L Low 45-117 CBS W/Automated 07/20/2018 [facility] White 4.0 K/uL Normal 3.4-10.[address] [place] [address] Count [phone] Red Blood Count 4.45 M/uL Normal 4.20-5.80 [...] 33.0-73.0 Lymph % 35.8 % Normal 20.0-42.0 [place] % 6.8 % Normal 0.0-10.0 Eo% 4.3 % Normal 0.0-6.6 Bas% 1.3 % High 0.0-1.1 Immature Grans 0.5 % Normal 0.0-5.0 NRBC % 0.0 /100WBC < 10/ 100 WBC Neut# 2.06 K/uL Normal 1.8-7.0 Lymph # 1.43 K/uL Normal 1.0-4.0 [place] # 0.27 K/uL Normal 0.0-0.8 Eos # 0.17 K/uL Normal 0.0-0.5 Baso # 0.05 K/uL Normal 0.0-0.1 Immature Grans Absolute 0.02 K/uL NRBC # 0.00 K/uL Laboratory test 07/20/2018 [facility] Thyroid Stim 4.21 uIU/mL High 0.30-4.[address] [place] [address] [phone] Free T4 0.90 ng/dL Normal 0.76-1.46 Ua RFX Micro & 06/11/2018 [facility] Urine Color YELLOW Yellow 14 Culture II [address] [place] [address] [phone] Urine Clarity CLEAR Clear Urine Glucose - Dipstick NEGATIVE mg/dL Negative Urine Bilirubin - Dipstick NEGATIVE Negative Urine Ketone NEGATIVE mg/dL Negative Urine Specific Stanton <= 1.005 Low 1.010-1.030 Urine Blood NEGATIVE Negative Urine PH 6.0 Low 6.5-7.5 Urine Protein - Dipstick NEGATIVE mg/dL Negative Urine Urobilinogen - Dipstick 0.2 E.U./dL Normal 0.2-1.0 Urine Nitrite - Dipstick NEGATIVE Negative Urine Leuk Esterase NEGATIVE Negative Source: URINE, CLEAN CAT <SEE NOTE> 15 Hepatitis 06/11/2018 [facility] Hepatitis A Negative Negative Evaluation [address] [place] [address] [phone] HBsAg Screen [Ref Lab] Negative Negative Hepatitis B Core IgM Negative Negative HCV Signal/Cutoff ratio < 0.1 s/corat 0.0-0.9 16 Smear For WBC'S 06/11/2018 [facility] Smear For WBC'S RARE [address] [place] [address] [phone] Smear Source: STOOL Specimen Source: STOOL Ova & Parasite 06/11/2018 [facility] Cryptosporidium NEGATIVE FOR 17 Antigen Screen [address] Specific Ag CRY <[place] [address] NOTE> [phone] Giardia Specific Antigen NEGATIVE FOR BENI <SEE NOTE> 18 Stool Culture 06/11/2018 [facility] Stool Culture NO ENTERIC PATHO [address] <SEE NOTE> [place] [address] [phone] . ................ <SEE NOTE> 20 Note: INCLUDES TESTING <SEE NOTE> 21 . PLESIOMONAS, CAM <SEE NOTE> 22 . ................ <SEE NOTE> 23 . YERSINIA AND VIB <SEE NOTE> 24 . SHOULD BE REQUES <SEE NOTE> 25 Shiga Toxin 1 Antigen SHIGA TOXIN 1 NO <SEE NOTE> 26 Shiga Toxin 2 Antigen SHIGA TOXIN 2 NO <SEE NOTE> 27 Laboratory test 06/11/2018 [facility] C. Difficile Negative for [address] Toxin B By PCR tox <[place] [address] NOTE> [phone] Laboratory test 06/11/2018 [facility] Lactoferrin, 4.57 0.00 [address] Stool Quant ug/mL(g) -7.2 [place] [address] 4 [phone] CBS W/Automated 06/11/2018 [facility] White Blood 4.6 K/uL Normal 3.4- Diff [address] Count 10.5 [place] [address] [phone] Red Blood Count 4.33 M/uL Normal 4.20-5.80 [...] 33.0-73.0 Lymph % 37.9 % Normal 20.0-42.0 [place] % 7.5 % Normal 0.0-10.0 Eo% 4.2 % Normal 0.0-6.6 Bas% 0.7 % Normal 0.0-1.1 Immature Grans 0.4 % Normal 0.0-5.0 NRBC % 0.0 /100WBC < 10/ 100 WBC Neut# 2.25 K/uL Normal 1.8-7.0 Lymph # 1.73 K/uL Normal 1.0-4.0 [place] # 0.34 K/uL Normal 0.0-0.8 Eos # 0.19 K/uL Normal 0.0-0.5 Baso # 0.03 K/uL Normal 0.0-0.1 Immature Grans Absolute 0.02 K/uL NRBC # 0.00 K/uL Comprehensive 06/11/2018 [facility] Glucose 129 mg/ dL High 74-106 Metabolic Panel [address] [place] [address] [phone] BUN 19 mg/dL High 7-18 Creatinine 1.2 mg/dL Normal 0.6-1.3 Glom Filtration Rate, Estimate >60 mL/min >60 If >60 mL/min >60 30 BUN/Creat 15.8 ratio Sodium 137 mmol/L Normal [...] 43 U/L Low 45-117 Laboratory test 06/11/2018 [facility] Lipase 81 U/L Normal 56-[address] [place] [address] [phone] 1 NO DX 2 Reference Range: Pubertal Children and Adults: 0.8 - 1.7 Performed at: [facility] [address] [place] [id number] Puller Machine: Ron Pastor MD, Phone: [phone] 3 Vitamin D deficiency has been defined by the [place] [employer] and an Endocrine Society practice guideline as a level of serum 25-OH vitamin D less than 20 ng/mL (1,2). The Endocrine Society went on to further define vitamin D insufficiency as a level between 21 and 29 ng/mL (2). 1. IOM ([place] [employer]). 2010. Dietary reference intakes for calcium and D. [place]: The National Academies Press. 2. Kathryn MF, Sheri NC, Oly VILLARREAL, et al. Evaluation, treatment, and prevention of vitamin D deficiency: an Endocrine Society clinical practice guideline. JCEM. 2010; 96(7):1911-30. Performed at: RN - [facility] [address] [id number] Puller Machine: Jannie Luna MD, Phone: [phone] 4 INFCE Result Units: s/co ratio Negative: < 0.8 Indeterminate: 0.8 - 0.9 Positive: > 0.9 The CDC recommends that a positive HCV antibody result be followed up with a HCV Nucleic Acid Amplification test (664868). Performed at: [facility] [address] [id number] Puller Machine: Jannie Luna MD, Phone: [phone] 5 Reference Guidelines*: Desirable: ........... < 200 mg/dL Borderline High: ..... 200-239 mg/dL High: ................ >= 240 mg/dL * The National Cholesterol Education Program (NCEP) 6 Reference Guidelines*: Normal: ............. < 150 mg/dL Borderline High: .... 150-199 mg/dL High: ............... 200-499 mg/dL Very High: .......... > 500 mg/dL * Source: National Cholesterol Education Program (NCEP) 7 Reference Guidelines*: Low HDL: ..... < 40 mg/dL Normal: ..... 40-60 mg/dL Desirable: ... > 60 mg/dL *The National Cholesterol Education Program(NCEP) 8 Reference Guidelines*: Optimal:........... <100 mg/dL Near Optimal....... 100-129 mg/dL Borderline High.... 130-159 mg/dL High............... 160-189 mg/dL Very High.......... >=190 mg/dL * Source: National Cholesterol Education Program (NCEP) 9 Note: Persistent reduction for 3 months or more in an eGFR <60 mL/min/1.73 m2 defines CKD. Patients with eGFR values >/=60 mL/min/1.73 m2 may also have CKD if evidence of persistent proteinuria is present. The original MDRD equation for estimated GFR is not valid for patients less than 18 years of age. Additional information may be found at www.kdoqi.org. 10 Elevated levels of HbA1c suggest the need for more aggressive treatment of glycemia. The [place] [employer] recommends that a primary goal of therapy should be a HbA1c of <7% and that physicians should re-evaluate the treatment regimen in patients with HbA1c values consistently >8%. 11 E06.9 E07.9 E78.2 E03.9 E83.40 E11.9 12 Elevated levels of HbA1c suggest the need for more aggressive treatment of glycemia. The [place] [employer] recommends that a primary goal of therapy should be a HbA1c of <7% and that physicians should re-evaluate the treatment regimen in patients with HbA1c values consistently >8%. 13 Note: Persistent reduction for 3 months or more in an eGFR <60 mL/min/1.73 m2 defines CKD. Patients with eGFR values >/=60 mL/min/1.73 m2 may also have CKD if evidence of persistent proteinuria is present. The original MDRD equation for estimated GFR is not valid for patients less than 18 years of age. Additional information may be found at www.kdoqi.org. 14 DIARRHEA FOR WEEK 15 URINE, CLEAN CATCH 16 INFCE Result Units: s/co ratio Negative: < 0.8 Indeterminate: 0.8 - 0.9 Positive: > 0.9 The CDC recommends that a positive HCV antibody result be followed up with a HCV Nucleic Acid Amplification test (950467). Performed at: - [address] [id number] Puller Machine: Jannie Luna MD, Phone: [phone] 17 NEGATIVE FOR CRYPTOSPORIDIUM SPECIFIC ANTIGEN 18 NEGATIVE FOR GIARDIA SPECIFIC ANTIGEN. The specimen will be held for 5 days. Additional testing may be performed upon request if the antigen tests are negative, and the patient is still symptomatic or has traveled to an endemic region. Method: Alere Quik Chek Rapid Membrane Enzyme Immunoassay 19 NO ENTERIC PATHOGENS ISOLATED 20 ................................................... 21 INCLUDES TESTING FOR SALMONELLA, SHIGELLA, AEROMONAS, 22 PLESIOMONAS, CAMPYLOBACTER, AND E. COLI 0157:H7 23 ................................................... 24 YERSINIA AND VIBRIO ARE NOT ROUTINELY SCREENED FOR AND 25 SHOULD BE REQUESTED SEPARATELY 26 SHIGA TOXIN 1 NOT DETECTED 27 SHIGA TOXIN 2 NOT DETECTED Method: ImmunoCard STAT/EHEC Rapid Immunochromatographic Assay 28 Negative for toxigenic C. difficile by PCR 29 Baseline (normal) 0.00 - 7.24 Elevated >7.24 [...] non-inflammatory irritable bowel syndrome (IBS). Performed at: [address] [id number] Puller Machine: Ivan Rodriguez MD, Phone: [phone] 30 Note: Persistent reduction for 3 months or [...] [email or web address]. Procedures Date Code Description Status 07/27/2018 03779 Spirometry Graphic Record/Max Voluntary Vent Completed 10/29/2016 085811807 Bone Mineral Density Test Completed 09/23/2010 32126415 Colonoscopy Completed Medical Devices Description No Information [...] Anemia, unspecified I25.10 Athscl heart disease of [place] coronary artery w/o ang pctrs E11.65 Type [...] Anemia, unspecified I25.10 Athscl heart disease of [place] coronary artery w/o ang pctrs E11.65 Type [...] Anemia, unspecified I25.10 Athscl heart disease of [place] coronary artery w/o ang pctrs I49.1 Atrial [...] Code Description Provider 11/09/2018 E61.2 Magnesium deficiency Rocco Ventura 11/09/2018 J44.9 Chronic obstructive pulmonary disease, unspecified Rocco Ventura 11/09/2018 I65.23 Occlusion and stenosis of bilateral carotid arteries Rocco Ventura 11/09/2018 K58.0 Irritable bowel syndrome with diarrhea Rocco Ventura 11/09/2018 I34.0 Nonrheumatic mitral (valve) insufficiency Rocco Ventura 11/09/2018 F02.80 Dementia in other diseases classified elsewhere without Rocco Ventura behaviora 11/09/2018 K21.9 Gastro-esophageal reflux disease without esophagitis Rocco Ventura 11/09/2018 G47.33 Obstructive sleep apnea (adult) (pediatric) Lorenzo Rocco 11/09/2018 R19.7 Diarrhea, unspecified Gauss, Rocco 11/09/2018 D64.9 Anemia, unspecified Gauss, Rocco 11/09/2018 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 11/09/2018 E11.65 Type 2 diabetes mellitus with hyperglycemia Gauss, Rocco 11/09/2018 E03.9 Hypothyroidism, unspecified Gauss, Rocco 11/09/2018 E78.5 Hyperlipidemia, unspecified Gauss, Rocco 11/09/2018 N40.0 Benign prostatic hyperplasia without lower urinary GaKamran frankl tract symptoms 11/09/2018 K73.9 Chronic hepatitis, unspecified Gauss, Rocco 11/09/2018 E55.9 Vitamin D deficiency, unspecified Gauss, Rocco 10/11/2018 E61.2 Magnesium deficiency Gauss, Rocco 10/11/2018 J44.9 Chronic obstructive pulmonary disease, unspecified Gauss, Rocco 10/11/2018 I65.23 Occlusion and stenosis of bilateral carotid arteries Gauss , Rocco 10/11/2018 K58.0 Irritable bowel syndrome with diarrhea Deuss, Rocco 10/11/2018 I34.0 Nonrheumatic mitral (valve) insufficiency Gauss, Rocco 10/11/2018 F02.80 Dementia in other diseases classified elsewhere without Gauss, Rocco behaviora 10/11/2018 K21.9 Gastro-esophageal reflux disease without esophagitis [facility] , Rocco 10/11/2018 G47.33 Obstructive sleep apnea (adult) (pediatric) Gauss, Rocco 10/11/2018 Z23 Encounter for immunization Pierouss, Rocco 09/20/2018 E61.2 Magnesium deficiency Gauss, Rocco [...] G47.33 Obstructive sleep apnea (adult) (pediatric) Gauss, [facility] 08/23/2018 R19.7 Diarrhea, unspecified Gauss, Rocco 08/23/2018 D64.9 Anemia, unspecified Gauss, [facility] 08/23/2018 I25.10 Atherosclerotic heart disease of [place] coronary artery [facility], Rocco without angina pectoris 08/23/2018 E11.65 Type 2 diabetes mellitus with hyperglycemia Gauss, [facility] 08/23/2018 E03.9 Hypothyroidism, unspecified Gauss, Rocco 07/28/2018 E61.2 Magnesium deficiency Gauss, [facility] 07/28/2018 J44.9 Chronic obstructive pulmonary disease, unspecified Gauss, Rocco 07/28/2018 I65.23 Occlusion and stenosis of bilateral carotid arteries Gauss , Rocco 07/28/2018 K58.0 Irritable bowel syndrome with diarrhea Gauss, Rocco 07/28/2018 I34.0 Nonrheumatic mitral (valve) insufficiency [...] (pediatric) Gauss, Rocco 07/28/2018 R19.7 Diarrhea, unspecified Gauss, Rocco 07/28/2018 D64.9 Anemia, unspecified Gauss, [facility] 07/28/2018 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 Ventural without angina pectoris 07/28/2018 I49.1 Atrial premature depolarization Gauss, [facility] 07/28/2018 E11.9 Type 2 diabetes mellitus without complications Gauss, Rocco 07/28/2018 K73.9 Chronic hepatitis, unspecified Gauss, [facility] 07/28/2018 E55.9 Vitamin D deficiency, unspecified Gauss, [facility] 07/27/2018 R06.02 Shortness of breath Gauss, [facility] 07/27/2018 J44.9 Chronic obstructive pulmonary disease, unspecified Gauss, [facility] 07/27/2018 R05 Cough Gauss, [facility] 06/21/2018 K58.0 Irritable bowel syndrome with diarrhea Gauss, [facility] 06/21/2018 J44.9 Chronic obstructive pulmonary disease, unspecified Gauss, [facility] 06/21/2018 I65.23 Occlusion and stenosis of bilateral carotid arteries Gauss , [facility] 06/21/2018 I34.0 Nonrheumatic mitral (valve) insufficiency [facility], [facility] 06/21/2018 F02.80 Dementia in other diseases classified elsewhere without Gauss, Rocco behaviora 06/21/2018 K21.9 Gastro-esophageal reflux disease without esophagitis Gauss , [facility] 06/21/2018 E11.9 Type 2 diabetes mellitus without complications Gauss, Rocco 06/21/2018 E66.09 Other obesity due to excess calories Gauss, Rocco 06/21/2018 E03.9 Hypothyroidism, unspecified Gauss, [facility] 06/21/2018 N40.0 Benign prostatic hyperplasia without lower urinary Gauss, Rocco tract symptoms 06/21/2018 G47.33 Obstructive sleep apnea (adult) (pediatric) Gauss, Rocco 06/21/2018 I11.9 Hypertensive heart disease without heart failure Gauss, Rocco 06/21/2018 E61.2 Magnesium deficiency Rocco Ventura Plan of Treatment Future Appointment(s):12/05/2018 10:30 am - [facility] [id number] 9:30 am - Nurse at Main Ltfvbj6902/13/2019 11:00 am - [facility] Vzvqtq5111/28/2018 11:00 am - Rocco [facility] Sourbw6811/23/2018 8:30 am - Nurse at Main Cssgln7509/20/2018 - LorenzoAndres61.2 Magnesium dceknhugbzU60.9 Chronic obstructive pulmonary disease, unspecifiedComments:Discussed importance of [...] fats and exercise plays on evolution of [place] disease and importance of controlling cholesterol. Medications role and side effects in disease progression prevention discussed and need for compliance with prescribed treatment. Follow up testing for progression such as ultrasound surveillance jiojbwqyL91.0 Irritable bowel syndrome with sllrrbzwB22.0 Nonrheumatic mitral (valve) insufficiencyComments:Issues of symptoms and [...] Dementia in other diseases classified elsewhere without irvzfjvjiT76.9 Gastro-esophageal reflux disease without esophagitisComments:Discussed role of [...]
--- OUTSIDE RECORDS SUMMARY | 2018-12-02 15:18 | XMS REPORT | Continuity of Care Document ---
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 Problems Active Problems Provider Date Hyperlipidemia Rocco [...] HCL 1 by mouth every 90tabs F32.9 [facility] 10mg day Tablets Vitamin B-12 1 by mouth every 90tabs [facility] 02/01/2018 Natural day 500mcg Tablets Magnesium one tablet twice 180caps E83.40 [facility] 11/15/2017 500mg Capsules a day Vitamin D3 1 by mouth every 90caps [facility] 06/04/2015 5000Unit day Capsules Cpap Mask And Supples as directed Lorenzo Rocco 05/31/2014 [place] 3 2 by mouth every 180caps [facility] [...] Cream Apply Twice Daily as Needed 45gm [facility] Rocco 06/21/2018 - Immunizations CPT Code Status Date Vaccine Lot # [id number] Given 10/11/2018 Influenza Virus (Afluria) Split Virus 3 Years [id number] Of Age And Older 17859 Given 10/11/2018 Influenza Virus Vaccine, Quadrivalent, Split, Preservative Free 59349 Given 11/15/2017 Tetanus,Diphtheria,Adut/Adol Pertussis [id number] Q2035 Given 11/08/2017 Influenza Virus (Afluria) Split Virus 3 Years Of Age And Older Q2035 Given 10/30/2016 Influenza Virus (Afluria) Split Virus 3 Years Of Age And Older 93871 Given 09/03/2016 Pneumococcal Conjugate Vaccine 13 Valent For [id number] Intramuscular Use Q2037 Given 11/11/2015 Influenza Vaccine (Fluvirin) 3 Years Of Age Or [id number] Older Q2035 Given 10/16/2014 Influenza Virus (Afluria) Split Virus 3 Years [id number] Of Age And Older 25300 Given 01/02/2014 Pneumovax Polyvalent Inj Im Q2037 Given 12/05/2013 Influenza Vaccine (Fluvirin) 3 Years Of Age Or Older Q2035 Given 11/16/2012 Influenza Virus (Afluria) Split Virus 3 Years Of Age And Older Q2035 Given 11/16/2012 Influenza Virus (Afluria) Split Virus 3 Years [id number] Of Age And Older Q2037 Given 12/01/2011 Influenza Vaccine (Fluvirin) 3 Years Of Age Or [id number] Older Q2036 Given 12/30/2010 Flulaval [id number] 44266 Given 12/30/2010 Influenza Vaccine 53252 Given 05/12/2010 Tetanus Shot 86459 Given 11/05/2009 Influenza Vaccine [id number] 82869 Given 11/15/2008 [place] [address] Given Unknown Zostavax Vital Signs Date Vital [...] Result H/L Range Note Laboratory test 08/17/2018 [facility] Free T4 1.0 ng/ dL . 1, [address] Dialysis/[place] [address] Spect [phone] Laboratory test 08/17/2018 [facility] Vitamin 37.4 ng /mL 30.0-100.0 [address] D,25-[place] [address] [phone] Hepatitis 08/17/2018 [facility] Hepatitis A Negative Negative Evaluation [address] Antibody IgM [place], [place] [id number] [phone] HBsAg Screen [Ref Lab] Negative Negative Hepatitis B Core IgM Negative Negative HCV Signal/Cutoff ratio < 0.1 s/corat 0.0-0.9 4 Laboratory test 08/17/2018 [facility] Thyroid Stim 4.89 uIU/mL High 0.30-4.[address] Hormone [place], [place] [id number] [phone] Free T4 0.93 ng/dL Normal 0.76-1.46 LDL Cholesterol 08/17/2018 [facility] Cholesterol 180 mg/dL <200 [address] [place] [address] [phone] Triglycerides 330 mg/dL High <150 6 HDL Cholesterol 31 mg/dL Low >40 7 LDL-Cholesterol 83 mg/dL < 100 8 Laboratory test 08/17/2018 [facility] Magnesium 1.6 mg/dL Low 1.8-2.[address] [place] [address] [phone] Comprehensive 08/17/2018 [facility] Glucose 147 mg/ dL High 74-106 Metabolic Panel [address] [place] [address] [phone] BUN 36 mg/dL High 7-18 Creatinine 1.3 [...] 40 U/L Low 45-117 CBS W/Automated 08/17/2018 [facility] White 4.3 K/uL Normal 3.4-10.[address] [place] [place] [address] Count [phone] Red Blood Count 4.40 M/uL Normal 4.20-5.80 [...] 33.0-73.0 Lymph % 34.8 % Normal 20.0-42.0 [place] % 6.7 % Normal 0.0-10.0 Eo% 4.9 % Normal 0.0-6.6 Bas% 0.9 % Normal 0.0-1.1 Immature Grans 0.2 % Normal 0.0-5.0 NRBC % 0.0 /100WBC < 10/ 100 WBC Neut# 2.26 K/uL Normal 1.8-7.0 Lymph # 1.50 K/uL Normal 1.0-4.0 [place] # 0.29 K/uL Normal 0.0-0.8 Eos # 0.21 K/uL Normal 0.0-0.5 Baso # 0.04 K/uL Normal 0.0-0.1 Immature Grans Absolute 0.01 K/uL NRBC # 0.00 K/uL Glycohemoglobin 08/17/2018 [facility] Glycohemoglobin 7.2 % High 4.2-6.3 [address] (A1c) [place] [address] [phone] eAG 160 mg/dL Laboratory test 07/20/2018 [facility] Magnesium 1.3 Low 1.8-2.4 [address] mg/[place] [address] [phone] Glycohemoglobin 07/20/2018 [facility] Glycohemoglobin 7.4 % High 4.2-6.3 [address] (A1c) [place] [address] [phone] eAG 166 mg/dL Comprehensive 07/20/2018 [facility] Glucose 160 mg/ dL High 74-106 Metabolic Panel [address] [place] [address] [phone] BUN 27 mg/dL High 7-18 Creatinine 1.1 [...] 44 U/L Low 45-117 CBS W/Automated 07/20/2018 [facility] White 4.0 K/uL Normal 3.4-10.[address] [place] [place] [address] Count [phone] Red Blood Count 4.45 M/uL Normal 4.20-5.80 [...] 33.0-73.0 Lymph % 35.8 % Normal 20.0-42.0 [place] % 6.8 % Normal 0.0-10.0 Eo% 4.3 % Normal 0.0-6.6 Bas% 1.3 % High 0.0-1.1 Immature Grans 0.5 % Normal 0.0-5.0 NRBC % 0.0 /100WBC < 10/ 100 WBC Neut# 2.06 K/uL Normal 1.8-7.0 Lymph # 1.43 K/uL Normal 1.0-4.0 [place] # 0.27 K/uL Normal 0.0-0.8 Eos # 0.17 K/uL Normal 0.0-0.5 Baso # 0.05 K/uL Normal 0.0-0.1 Immature Grans Absolute 0.02 K/uL NRBC # 0.00 K/uL Laboratory test 07/20/2018 [facility] Thyroid Stim 4.21 uIU/mL High 0.30-4.[address] [place] [place] [address] [phone] Free T4 0.90 ng/dL Normal 0.76-1.46 Ua RFX Micro & 06/11/2018 [facility] Urine Color YELLOW Yellow 14 Culture II [address] [place] [address] [phone] Urine Clarity CLEAR Clear Urine Glucose - Dipstick NEGATIVE mg/dL Negative Urine Bilirubin - Dipstick NEGATIVE Negative Urine Ketone NEGATIVE mg/dL Negative Urine Specific Otho <= 1.005 Low 1.010-1.030 Urine Blood NEGATIVE Negative Urine PH 6.0 Low 6.5-7.5 Urine Protein - Dipstick NEGATIVE mg/dL Negative Urine Urobilinogen - Dipstick 0.2 E.U./dL Normal 0.2-1.0 Urine Nitrite - Dipstick NEGATIVE Negative Urine Leuk Esterase NEGATIVE Negative Source: URINE, CLEAN CAT <SEE NOTE> 15 Hepatitis 06/11/2018 [facility] Hepatitis A Negative Negative Evaluation [address] [place] [address] [phone] HBsAg Screen [Ref Lab] Negative Negative Hepatitis B Core IgM Negative Negative HCV Signal/Cutoff ratio < 0.1 s/corat 0.0-0.9 16 Smear For WBC'S 06/11/2018 [facility] Smear For WBC'S RARE [address] [place] [address] [phone] Smear Source: STOOL Specimen Source: STOOL Ova & Parasite 06/11/2018 [facility] Cryptosporidium NEGATIVE FOR 17 Antigen Screen [address] Specific Ag [place] <[place] [address] NOTE> [phone] Giardia Specific Antigen NEGATIVE FOR BENI <SEE NOTE> 18 Stool Culture 06/11/2018 [facility] Stool Culture NO ENTERIC PATHO [address] <SEE NOTE> [place] [address] [phone] . ................ <SEE NOTE> 20 Note: INCLUDES TESTING <SEE NOTE> 21 . PLESIOMONAS, CAM <SEE NOTE> 22 . ................ <SEE NOTE> 23 . YERSINIA AND VIB <SEE NOTE> 24 . SHOULD BE REQUES <SEE NOTE> 25 Shiga Toxin 1 Antigen SHIGA TOXIN 1 NO <SEE NOTE> 26 Shiga Toxin 2 Antigen SHIGA TOXIN 2 NO <SEE NOTE> 27 Laboratory test 06/11/2018 [facility] C. Difficile Negative for [address] Toxin B By PCR tox <[place] [address] NOTE> [phone] Laboratory test 06/11/2018 [facility] Lactoferrin, 4.57 0.[address] Stool Quant ug/mL(g) -7.2 [place] [id number] 4 [phone] CBS W/Automated 06/11/2018 [facility] White Blood 4.6 K/uL Normal 3.4- Diff [address] Count 10.5 [place] [address] [phone] Red Blood Count 4.33 M/uL Normal 4.20-5.80 [...] 33.0-73.0 Lymph % 37.9 % Normal 20.0-42.0 [place] % 7.5 % Normal 0.0-10.0 Eo% 4.2 % Normal 0.0-6.6 Bas% 0.7 % Normal 0.0-1.1 Immature Grans 0.4 % Normal 0.0-5.0 NRBC % 0.0 /100WBC < 10/ 100 WBC Neut# 2.25 K/uL Normal 1.8-7.0 Lymph # 1.73 K/uL Normal 1.0-4.0 [place] # 0.34 K/uL Normal 0.0-0.8 Eos # 0.19 K/uL Normal 0.0-0.5 Baso # 0.03 K/uL Normal 0.0-0.1 Immature Grans Absolute 0.02 K/uL NRBC # 0.00 K/uL Comprehensive 06/11/2018 [facility] Glucose 129 mg/ dL High 74-106 Metabolic Panel [address] [place] [address] [phone] BUN 19 mg/dL High 7-18 Creatinine 1.2 [...] 43 U/L Low 45-117 Laboratory test 06/11/2018 [facility] Lipase 81 U/L Normal 56-[address] [place], [place] [id number] [phone] 1 NO DX 2 Reference Range: Pubertal Children and Adults: 0.8 - 1.7 Performed at: [facility] [address] [place] [id number] Foam Gun Operator: Ron Pastor MD, Phone: [phone] Vitamin D deficiency has been defined by the [place] of [employer] and an Endocrine Society practice guideline as a level of serum 25-OH vitamin D less than 20 ng/mL (1,2). The Endocrine Society went on to further define vitamin D insufficiency as a level between 21 and 29 ng/mL (2). 1. IOM ([place] of [employer]). 2010. Dietary reference intakes for calcium and D. [place]: The National Academies Press. 2. Kathryn MF, Sheri NC, Oly VILLARREAL, et al. Evaluation, treatment, and prevention of vitamin D deficiency: an Endocrine Society clinical practice guideline. JCEM. 2010; 96(7):1911-30. Performed at: RN - [facility] [address] [id number] Foam Gun Operator: Jannie Luna MD, Phone: [phone] INFCE Result Units: s/co ratio Negative: < 0.8 Indeterminate: 0.8 - 0.9 Positive: > 0.9 The CDC recommends that a positive HCV antibody result be followed up with a HCV Nucleic Acid Amplification test (470384). Performed at: [facility] [id number] Foam Gun Operator: Jannie Luna MD, Phone: [phone] Reference Guidelines*: Desirable: ........... < 200 [...] for more aggressive treatment of glycemia. The [place] [employer] recommends that a primary goal of therapy should be a HbA1c of <7% and that physicians should re-evaluate the treatment regimen in patients with HbA1c values consistently >8%. 11 E06.9 E07.9 E78.2 E03.9 E83.40 E11.9 12 Elevated levels of HbA1c suggest the need for more aggressive treatment of glycemia. The [place] [employer] recommends that a primary goal [...] with a HCV Nucleic Acid Amplification test (077757). Performed at: - [facility] [id number] Foam Gun Operator: Jannie Luna MD, Phone: [phone] NEGATIVE FOR CRYPTOSPORIDIUM SPECIFIC ANTIGEN 18 [...] non-inflammatory irritable bowel syndrome (IBS). Performed at: [address] [id number] Foam Gun Operator: Ivan Rodriguez MD, Phone: [phone] Note: Persistent reduction for 3 months [...] [email or web address]. Procedures Date Code Description Status 07/27/2018 47382 Spirometry Graphic Record/Max Voluntary Vent Completed 10/29/2016 492696533 Bone Mineral Density Test Completed 09/23/2010 46019898 Colonoscopy Completed Medical Devices Description No Information [...] Anemia, unspecified I25.10 Athscl heart disease of [place] coronary artery w/o ang pctrs E11.65 Type [...] Anemia, unspecified I25.10 Athscl heart disease of [place] coronary artery w/o ang pctrs E11.65 Type [...] Anemia, unspecified I25.10 Athscl heart disease of [place] coronary artery w/o ang pctrs I49.1 Atrial [...] disease without heart failure E61.2 Magnesium deficiency Office Visit 05/19/2018 3:30p Main Office Jeanette Ventura M.D. K58.0 Irritable bowel syndrome with diarrhea Assessments Date Code Description Provider 11/09/2018 E61.2 Magnesium deficiency Rocco Ventura 11/09/2018 J44.9 Chronic obstructive pulmonary disease, Rocco Ventura unspecified 11/09/2018 I65.23 Occlusion and stenosis of bilateral carotid Rocco Ventura arteries 11/09/2018 K58.0 Irritable bowel syndrome with diarrhea Rocco Ventura 11/09/2018 I34.0 Nonrheumatic mitral (valve) insufficiency Rocco Ventura 11/09/2018 F02.80 Dementia in other diseases classified elsewhere Rocco Ventura without behaviora 11/09/2018 K21.9 Gastro-esophageal reflux disease without Gauss, Rocco esophagitis 11/09/2018 G47.33 Obstructive sleep apnea (adult) (pediatric) Gauss, Rocco 11/09/2018 R19.7 Diarrhea, unspecified Gauss, Rocco 11/09/2018 D64.9 Anemia, unspecified Gauss, Rocco 11/09/2018 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, 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 11/09/2018 E11.65 Type 2 diabetes mellitus with hyperglycemia Gauss, Rocco 11/09/2018 E03.9 Hypothyroidism, unspecified Gauss, Rocco 11/09/2018 E78.5 Hyperlipidemia, unspecified Gauss, Rocco 11/09/2018 N40.0 Benign prostatic hyperplasia without lower Gauss, Rocco urinary tract symptoms 11/09/2018 K73.9 Chronic hepatitis, unspecified Gauss, Rocco 11/09/2018 E55.9 Vitamin D deficiency, unspecified Gauss, Rocco 10/11/2018 E61.2 Magnesium deficiency Gauss, Rocco 10/11/2018 J44.9 Chronic obstructive pulmonary disease, Gauss, Rocco unspecified 10/11/2018 I65.23 Occlusion and stenosis of bilateral carotid Gauss, Rocco arteries 10/11/2018 K58.0 Irritable bowel syndrome with diarrhea Gauss, Rocco 10/11/2018 I34.0 Nonrheumatic mitral (valve) insufficiency Gauss, Rocco 10/11/2018 F02.80 Dementia in other diseases classified elsewhere [place], Rocco without behaviora 10/11/2018 K21.9 Gastro-esophageal reflux disease without Gauss, Rocco esophagitis 10/11/2018 G47.33 Obstructive sleep apnea (adult) (pediatric) Gauss, Rocco 10/11/2018 Z23 Encounter for immunization Gauss, Rocco 09/20/2018 E61.2 Magnesium deficiency Gauss, Rocco 09/20/2018 J44.9 Chronic obstructive pulmonary disease, Gauss, Rocco unspecified 09/20/2018 I65.23 Occlusion and stenosis of bilateral carotid Gauss, Rocco arteries 09/20/2018 K58.0 Irritable bowel syndrome with diarrhea Gauss, Rocco 09/20/2018 I34.0 Nonrheumatic mitral (valve) insufficiency Gauss, Rocco 09/20/2018 F02.80 Dementia in other diseases classified elsewhere Gauss, Rocco without behaviora 09/20/2018 K21.9 Gastro-esophageal reflux disease without Gauss, Rocco esophagitis 08/23/2018 E61.2 Magnesium deficiency Gauss, Rocco 08/23/2018 J44.9 Chronic obstructive pulmonary disease, Gauss, Rocco unspecified 08/23/2018 I65.23 Occlusion and stenosis of bilateral carotid Gauss, Rocco arteries 08/23/2018 K58.0 Irritable bowel syndrome with diarrhea Gauss, Rocco 08/23/2018 I34.0 Nonrheumatic mitral (valve) insufficiency Gauss, Rocco 08/23/2018 F02.80 Dementia in other diseases classified elsewhere Gauss, Rocco without behaviora 08/23/2018 K21.9 Gastro-esophageal reflux disease without Gauss, Rocco esophagitis 08/23/2018 G47.33 Obstructive sleep apnea (adult) (pediatric) Gauss, Rocco 08/23/2018 R19.7 Diarrhea, unspecified Gauss, Rocco 08/23/2018 D64.9 Anemia, unspecified Gauss, Rocco 08/23/2018 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 08/23/2018 E11.65 Type 2 diabetes mellitus with hyperglycemia Gauss, Rocco 08/23/2018 E03.9 Hypothyroidism, unspecified Gauss, Rocco 07/28/2018 E61.2 Magnesium deficiency Gauss, Rocco 07/28/2018 J44.9 Chronic obstructive pulmonary disease, Gauss, Rocco unspecified 07/28/2018 I65.23 Occlusion and stenosis of bilateral carotid Gauss, Rocco arteries 07/28/2018 K58.0 Irritable bowel syndrome with diarrhea Gauss, Rocco 07/28/2018 I34.0 Nonrheumatic mitral (valve) insufficiency Gauss, Rocco 07/28/2018 F02.80 Dementia in other diseases classified elsewhere Gauss, Rocco without behaviora 07/28/2018 E03.9 Hypothyroidism, unspecified Gauss, Rocco 07/28/2018 K21.9 Gastro-esophageal reflux disease without Gauss, Rocco esophagitis 07/28/2018 I11.9 Hypertensive heart disease without heart failure Gauss, Rocco 07/28/2018 E78.5 Hyperlipidemia, unspecified Gauss, Rocco 07/28/2018 N40.0 Benign prostatic hyperplasia without lower Gauss, Rocco urinary tract symptoms 07/28/2018 G47.33 Obstructive sleep apnea (adult) (pediatric) Lorenzo, Rocco 07/28/2018 R19.7 Diarrhea, unspecified Lorenzo, Rocco 07/28/2018 D64.9 Anemia, unspecified Gauss, Rocco 07/28/2018 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 Kamran Ventural artery without angina pectoris 07/28/2018 I49.1 Atrial premature depolarization Lorenzo, Rocco 07/28/2018 E11.9 Type 2 diabetes mellitus without complications [place], Rocco 07/28/2018 K73.9 Chronic hepatitis, unspecified Lorenzo, Rocco 07/28/2018 E55.9 Vitamin D deficiency, unspecified Lorenzo, Rocco 07/27/2018 R06.02 Shortness of breath Lorenzo, Rocco 07/27/2018 J44.9 Chronic obstructive pulmonary disease, Kamran Ventural unspecified 07/27/2018 R05 Cough Lorenzo, Rocco 06/21/2018 K58.0 Irritable bowel syndrome with diarrhea Lorenzo, Rocco 06/21/2018 J44.9 Chronic obstructive pulmonary disease, Kamran Ventural unspecified 06/21/2018 I65.23 Occlusion and stenosis of bilateral carotid Kamran Ventural arteries 06/21/2018 I34.0 Nonrheumatic mitral (valve) insufficiency Lorenzo, Rocco 06/21/2018 F02.80 Dementia in other diseases classified elsewhere Kamran Ventural without behaviora 06/21/2018 K21.9 Gastro-esophageal reflux disease without Gauss, Rocco esophagitis 06/21/2018 E11.9 Type 2 diabetes mellitus without complications [place], Rocco 06/21/2018 E66.09 Other obesity due to excess calories Lorenzo, Rocco 06/21/2018 E03.9 Hypothyroidism, unspecified Lorenzo, Rocco 06/21/2018 N40.0 Benign prostatic hyperplasia without lower [place], Rocco urinary tract symptoms 06/21/2018 G47.33 Obstructive sleep apnea (adult) (pediatric) [place], Rocco 06/21/2018 I11.9 Hypertensive heart disease without heart failure Rocco Ventura 06/21/2018 E61.2 Magnesium deficiency Rocco Ventura 05/19/2018 K58.0 Irritable bowel syndrome with diarrhea Jeanette Ventura M.D. Plan of Treatment Future Appointment(s):12/05/2018 10:30 am - Rocco Ventura at Main [id number] 9:30 am - Nurse at Main Lozoqm5302/13/2019 11:00 am - Rocco Ventura at Main Bboiyc4111/28/2018 11:00 am - Rocco Ventura at Main Yzxjos4111/23/2018 8:30 am - Nurse at Main Psfqbp2910/11/2018 - Kamran VenturalE61.2 Magnesium bybfdbsfheR31.9 Chronic obstructive pulmonary disease, unspecifiedComments:Discussed importance of [...] fats and exercise plays on evolution of [place] disease and importance of controlling cholesterol. Medications role and side effects in disease progression prevention discussed and need for compliance with prescribed treatment. Follow up testing for progression such as ultrasound surveillance susmdfuaG19.0 Irritable bowel syndrome with ofcqesfuQ72.0 Nonrheumatic mitral (valve) insufficiencyComments:Issues of symptoms and [...] Dementia in other diseases classified elsewhere without oovehmjmwC92.9 Gastro-esophageal reflux disease without esophagitisComments:Discussed role of diet and excersize and weight reduction and contribution of common exacerbating factors/ substances such as stress/fatigue/caffeine/nicotine/chocolate/ foods.Signs and symptoms of disease progression discussed as well as necessity to promptly report changes or worsening and the need for medication compliance. Periodic measurement and follow up for serum Magnesium levels while on PPI.G47.33 Obstructive sleep apnea (adult) (pediatric)Comments:Continue CPAPWeight LossZ23 Encounter for immunization Functional Status Description No Information Available Mental Status Description No Information Available Referrals Description No Information Available
--- OUTSIDE RECORDS SUMMARY | 2018-12-02 15:18 | XMS REPORT | Continuity of Care Document ---
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 Problems Provider Date Hyperlipidemia Rocco [...] & D Zinc Oxide Apply Twice 45gm [facility] 07/28/2018 Cream Daily as Needed Paroxetine HCL 1 by mouth every 90tabs [facility] day Tablets Vitamin B-12 1 by mouth every 90tabs [facility] 02/01/2018 Natural day 500mcg Tablets Magnesium one tablet twice 180caps E83.40 [facility] 11/15/2017 500mg Capsules a day Vitamin D3 1 by mouth every 90caps [facility] 06/04/2015 5000Unit day Capsules Cpap Mask And Supples as directed Lorenzo Rocco 05/31/2014 [place] 3 2 by mouth every 180caps [facility] 04/18/2014 1000mg Capsules day Cpap Machine Please dispense Lorenzo Rocco 05/04/2012 a mask, hose and filter. Dx Sleep Apnea Flomax 1 by mouth every 90caps [facility] 09/16/2010 0.4mg Capsules day Bystolic 1 by mouth every 90tabs [facility] 04/26/2009 5mg Tablets day Lipitor 1 by mouth every 90tabs [facility] 04/26/2009 40mg Tablets day Tricor 1 by mouth every 90tabs [facility] 04/26/2009 145mg Tablets day Altace 1qd - take one 90caps [facility] 04/26/2009 10mg Capsules capsule by mouth every day Dexilant 1 by mouth every 90caps [facility] 60mg Caps[address] day Viberzi 1 by mouth twice 180tabs [facility] 100mg Tablets a day History Medications A & D Cream Apply Twice Daily as Needed 45gm [facility] Rocco 06/21/2018 - Immunizations CPT Code Status Date Vaccine Lot # [id number] Given 10/11/2018 Influenza Virus (Afluria) Split Virus 3 Years [id number] Of Age And Older [id number] Given 10/11/2018 Influenza Virus Vaccine, Quadrivalent, Split, Preservative Free [id number] Given 11/15/2017 Tetanus,Diphtheria,Adut/Adol Pertussis [id number] Q2035 Given 11/08/2017 Influenza Virus (Afluria) Split Virus 3 Years Of Age And Older Q2035 Given 10/30/2016 Influenza Virus (Afluria) Split Virus 3 Years Of Age And Older 99386 Given 09/03/2016 Pneumococcal Conjugate Vaccine 13 Valent For [id number] Intramuscular Use Q2037 Given 11/11/2015 Influenza Vaccine (Fluvirin) 3 Years Of Age Or [id number] Older Q2035 Given 10/16/2014 Influenza Virus (Afluria) Split Virus 3 Years [id number] Of Age And Older 39859 Given 01/02/2014 Pneumovax Polyvalent Inj Im Q2037 Given 12/05/2013 Influenza Vaccine (Fluvirin) 3 Years Of Age Or Older Q2035 Given 11/16/2012 Influenza Virus (Afluria) Split Virus 3 Years Of Age And Older Q2035 Given 11/16/2012 Influenza Virus (Afluria) Split Virus 3 Years [id number] Of Age And Older Q2037 Given 12/01/2011 Influenza Vaccine (Fluvirin) 3 Years Of Age Or [id number] Older Q2036 Given 12/30/2010 Flulaval [id number] Given 12/30/2010 Influenza Vaccine [id number] Given 05/12/2010 Tetanus Shot 93169 Given 11/05/2009 Influenza Vaccine [id number] Given 11/15/2008 [place] [address] Given Unknown Zostavax Vital Signs Date Vital [...] Result H/L Range Note Laboratory test 08/17/2018 [facility] Free T4 1.0 ng/ dL . 1, [address] Dialysis/[place] [address] Spect [phone] Laboratory test 08/17/2018 [facility] Vitamin 37.4 ng /mL 30.0-100.0 [address] D,25-[place] [address] [phone] Hepatitis 08/17/2018 [facility] Hepatitis A Negative Negative Evaluation [address] [place] [address] [phone] HBsAg Screen [Ref Lab] Negative Negative Hepatitis B Core IgM Negative Negative HCV Signal/Cutoff ratio < 0.1 s/corat 0.0-0.9 4 Laboratory test 08/17/2018 [facility] Thyroid Stim 4.89 uIU/mL High 0.30-4.[address] Hormone [place], [place] [id number] [phone] Free T4 0.93 ng/dL Normal 0.76-1.46 LDL Cholesterol 08/17/2018 [facility] Cholesterol 180 mg/dL <200 [address] [place] [address] [phone] Triglycerides 330 mg/dL High <150 6 HDL Cholesterol 31 mg/dL Low >40 7 LDL-Cholesterol 83 mg/dL < 100 8 Laboratory test 08/17/2018 [facility] Magnesium 1.6 mg/dL Low 1.8-2.[address] [place] [address] [phone] Comprehensive 08/17/2018 [facility] Glucose 147 mg/ dL High 74-106 Metabolic Panel [address] [place] [address] [phone] BUN 36 mg/dL High 7-18 Creatinine 1.3 [...] 40 U/L Low 45-117 CBS W/Automated 08/17/2018 [facility] White 4.3 K/uL Normal 3.4-10.[address] [place] [address] Count [phone] Red Blood Count 4.40 M/uL Normal 4.20-5.80 [...] 33.0-73.0 Lymph % 34.8 % Normal 20.0-42.0 [place] % 6.7 % Normal 0.0-10.0 Eo% 4.9 % Normal 0.0-6.6 Bas% 0.9 % Normal 0.0-1.1 Immature Grans 0.2 % Normal 0.0-5.0 NRBC % 0.0 /100WBC < 10/ 100 WBC Neut# 2.26 K/uL Normal 1.8-7.0 Lymph # 1.50 K/uL Normal 1.0-4.0 [place] # 0.29 K/uL Normal 0.0-0.8 Eos # 0.21 K/uL Normal 0.0-0.5 Baso # 0.04 K/uL Normal 0.0-0.1 Immature Grans Absolute 0.01 K/uL NRBC # 0.00 K/uL Glycohemoglobin 08/17/2018 [facility] Glycohemoglobin 7.2 % High 4.2-6.[address] (A1c) [place] [address] [phone] eAG 160 mg/dL Laboratory test 07/20/2018 [facility] Magnesium 1.3 Low 1.8-2.4 [address] mg/[place] [address] [phone] Glycohemoglobin 07/20/2018 [facility] Glycohemoglobin 7.4 % High 4.2-6.3 [address] (A1c) [place] [address] [phone] eAG 166 mg/dL Comprehensive 07/20/2018 [facility] Glucose 160 mg/ dL High 74-106 Metabolic Panel [address] [place] [address] [phone] BUN 27 mg/dL High 7-18 Creatinine 1.1 [...] 44 U/L Low 45-117 CBS W/Automated 07/20/2018 [facility] White 4.0 K/uL Normal 3.4-10.[address] [place] [address] Count [phone] Red Blood Count 4.45 M/uL Normal 4.20-5.80 [...] 33.0-73.0 Lymph % 35.8 % Normal 20.0-42.0 [place] % 6.8 % Normal 0.0-10.0 Eo% 4.3 % Normal 0.0-6.6 Bas% 1.3 % High 0.0-1.1 Immature Grans 0.5 % Normal 0.0-5.0 NRBC % 0.0 /100WBC < 10/ 100 WBC Neut# 2.06 K/uL Normal 1.8-7.0 Lymph # 1.43 K/uL Normal 1.0-4.0 [place] # 0.27 K/uL Normal 0.0-0.8 Eos # 0.17 K/uL Normal 0.0-0.5 Baso # 0.05 K/uL Normal 0.0-0.1 Immature Grans Absolute 0.02 K/uL NRBC # 0.00 K/uL Laboratory test 07/20/2018 [facility] Thyroid Stim 4.21 uIU/mL High 0.30-4.[address] [place] [address] [phone] Free T4 0.90 ng/dL Normal 0.76-1.46 Ua RFX Micro & 06/11/2018 [facility] Urine Color YELLOW Yellow 14 Culture II [address] [place] [address] [phone] Urine Clarity CLEAR Clear Urine Glucose - Dipstick NEGATIVE mg/dL Negative Urine Bilirubin - Dipstick NEGATIVE Negative Urine Ketone NEGATIVE mg/dL Negative Urine Specific [place] <= 1.005 Low 1.010-1.030 Urine Blood NEGATIVE Negative Urine PH 6.0 Low 6.5-7.5 Urine Protein - Dipstick NEGATIVE mg/dL Negative Urine Urobilinogen - Dipstick 0.2 E.U./dL Normal 0.2-1.0 Urine Nitrite - Dipstick NEGATIVE Negative Urine Leuk Esterase NEGATIVE Negative Source: URINE, CLEAN CAT <SEE NOTE> 15 Hepatitis 06/11/2018 [facility] Hepatitis A Negative Negative Evaluation [address] [place] [address] [phone] HBsAg Screen [Ref Lab] Negative Negative Hepatitis B Core IgM Negative Negative HCV Signal/Cutoff ratio < 0.1 s/corat 0.0-0.9 16 Smear For WBC'S 06/11/2018 [facility] Smear For WBC'S RARE [address] [place] [address] [phone] Smear Source: STOOL Specimen Source: STOOL Ova & Parasite 06/11/2018 [facility] Cryptosporidium NEGATIVE FOR 17 Antigen Screen [address] Specific Ag [place] <[place] [address] NOTE> [phone] Giardia Specific Antigen NEGATIVE FOR BENI <SEE NOTE> 18 Stool Culture 06/11/2018 [facility] Stool Culture NO ENTERIC PATHO [address] <SEE NOTE> [place] [address] [phone] . ................ <SEE NOTE> 20 Note: INCLUDES TESTING <SEE NOTE> 21 . PLESIOMONAS, CAM <SEE NOTE> 22 . ................ <SEE NOTE> 23 . YERSINIA AND VIB <SEE NOTE> 24 . SHOULD BE REQUES <SEE NOTE> 25 Shiga Toxin 1 Antigen SHIGA TOXIN 1 NO <SEE NOTE> 26 Shiga Toxin 2 Antigen SHIGA TOXIN 2 NO <SEE NOTE> 27 Laboratory test 06/11/2018 [facility] C. Difficile Negative for [address] Toxin B By PCR tox <[place] [address] NOTE> [phone] Laboratory test 06/11/2018 [facility] Lactoferrin, 4.57 0.[address] Stool Quant ug/mL(g) -7.2 [place] [address] 4 [phone] CBS W/Automated 06/11/2018 [facility] White Blood 4.6 K/uL Normal 3.4- Diff [address] Count 10.5 [place] [address] [phone] Red Blood Count 4.33 M/uL Normal 4.20-5.80 [...] 33.0-73.0 Lymph % 37.9 % Normal 20.0-42.0 [place] % 7.5 % Normal 0.0-10.0 Eo% 4.2 % Normal 0.0-6.6 Bas% 0.7 % Normal 0.0-1.1 Immature Grans 0.4 % Normal 0.0-5.0 NRBC % 0.0 /100WBC < 10/ 100 WBC Neut# 2.25 K/uL Normal 1.8-7.0 Lymph # 1.73 K/uL Normal 1.0-4.0 [place] # 0.34 K/uL Normal 0.0-0.8 Eos # 0.19 K/uL Normal 0.0-0.5 Baso # 0.03 K/uL Normal 0.0-0.1 Immature Grans Absolute 0.02 K/uL NRBC # 0.00 K/uL Comprehensive 06/11/2018 [facility] Glucose 129 mg/ dL High 74-106 Metabolic Panel [address] [place] [address] [phone] BUN 19 mg/dL High 7-18 Creatinine 1.2 [...] 43 U/L Low 45-117 Laboratory test 06/11/2018 [facility] Lipase 81 U/L Normal 56-[address] [place] [address] [phone] 1 NO DX 2 Reference Range: Pubertal Children and Adults: 0.8 - 1.7 Performed at: [facility] [address] [place] [id number] Head Usher: Ron Pastor MD, Phone: [phone] Vitamin D deficiency has been defined by the [place] of [employer] and an Endocrine Society practice guideline as a level of serum 25-OH vitamin D less than 20 ng/mL (1,2). The Endocrine Society went on to further define vitamin D insufficiency as a level between 21 and 29 ng/mL (2). 1. IOM ([place] of [employer]). 2010. Dietary reference intakes for calcium and D. [place]: The National Academies Press. 2. Kathryn MF, Sheri NC, Oly VILLARREAL, et al. Evaluation, treatment, and prevention of vitamin D deficiency: an Endocrine Society clinical practice guideline. JCEM. 2010; 96(7):1911-30. Performed at: RN - [facility] [address] [id number] Head Usher: Jannie Luna MD, Phone: [phone] INFCE Result Units: s/co ratio Negative: < 0.8 Indeterminate: 0.8 - 0.9 Positive: > 0.9 The CDC recommends that a positive HCV antibody result be followed up with a HCV Nucleic Acid Amplification test (326720). Performed at: [facility] [address] [id number] Head Usher: Jannie Luna MD, Phone: [phone] Reference Guidelines*: Desirable: ........... < 200 [...] for more aggressive treatment of glycemia. The [place] [employer] Association recommends that a primary goal of therapy should be a HbA1c of <7% and that physicians should re-evaluate the treatment regimen in patients with HbA1c values consistently >8%. 11 E06.9 E07.9 E78.2 E03.9 E83.40 E11.9 12 Elevated levels of HbA1c suggest the need for more aggressive treatment of glycemia. The [place] Diabetes Association recommends that a primary goal [...] with a HCV Nucleic Acid Amplification test (804091). Performed at: - [address] [id number] Head Usher: Jannie Luna MD, Phone: [phone] NEGATIVE FOR CRYPTOSPORIDIUM SPECIFIC ANTIGEN 18 [...] non-inflammatory irritable bowel syndrome (IBS). Performed at: [address] [id number] Head Usher: Ivan Rodriguez MD, Phone: [phone] Note: Persistent reduction for 3 months [...] www.kdoqi.org. 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, 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 [...] 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 [...] failure Gauss, Rocco 07/28/2018 E78.5 Hyperlipidemia, unspecified [place], Rocco 07/28/2018 N40.0 Benign prostatic hyperplasia without lower Gauss, Rocco urinary tract symptoms 07/28/2018 G47.33 Obstructive sleep apnea (adult) (pediatric) Lorenzo, Rocco 07/28/2018 R19.7 Diarrhea, unspecified Lorenzo, Rocco 07/28/2018 D64.9 Anemia, unspecified Gauss, Rocco 07/28/2018 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 07/28/2018 I49.1 Atrial premature depolarization Lorenzo, Rocco 07/28/2018 E11.9 Type 2 diabetes mellitus without complications Lorenzo, Rococ 07/28/2018 K73.9 Chronic hepatitis, unspecified Lorenzo, Rocco 07/28/2018 E55.9 Vitamin D deficiency, unspecified Lorenoz, Rocco 07/27/2018 R06.02 Shortness of breath Lorenzo, [...] behaviora 06/21/2018 K21.9 Gastro-esophageal reflux disease without GaussKamranl esophagitis 06/21/2018 E11.9 Type 2 diabetes mellitus without complications Lorenzo, Rocco 06/21/2018 E66.09 Other obesity due to [...] 10:30 am - Rocco [facility] [id number] 9:30 am - Nurse at Main Oopxef0502/13/2019 11:00 am - Rocco [facility] Jspmth3711/28/2018 11:00 am - Rocco [facility] Bravhv7411/23/2018 8:30 am - Nurse at Main Rxykkr5711/09/2018 - Kamran VenturalE61.2 Magnesium oriruxdpunF16.9 Chronic obstructive pulmonary disease, unspecifiedComments:Discussed importance of [...] exercise plays on evolution of [place] disease and importance of controlling cholesterol. Medications role and side effects in disease progression prevention discussed and need for compliance with prescribed treatment. Follow up testing for progression such as ultrasound surveillance vsbfziydC42.0 Irritable bowel syndrome with skxkzfnxK39.0 Nonrheumatic mitral (valve) insufficiencyComments:Issues of symptoms and [...] Dementia in other diseases classified elsewhere without buqtbtiaeI50.9 Gastro-esophageal reflux disease without esophagitisComments:Discussed role of [...] PPI.G47.33 Obstructive sleep apnea (adult) (pediatric)Comments:Continue CPAPWeight LossR19.7 Diarrhea, azltsrqlfhmC68.9 Anemia, axqbzeyfeylC95.10 Atherosclerotic heart disease of [place] coronary artery without angina pectorisComments:No evidence of angina. Continue medicaton as directed. Monitor cholesterol regularly. Continue daily ASA. Continue regular uxsdcyvhP85.65 Type 2 diabetes mellitus with hyperglycemiaComments:Continue with medication as directed. Continue with reduced carb diet. To continue with fingerstick monitoring Q Day Continue to follow reduced carbohydrate low fat diet. Exercise regularly. Needs annual blood sugar evaluation. Emphasized weight control to manage blood sugar meterman.E03.9 Hypothyroidism, jidfnirheycR30.5 Hyperlipidemia, unspecifiedComments: Counselled on role of diet and excersize and importance to keep compliance with medication if prescribed and side effects. The importance of routine monitoring of blood lipids and liver tests to managetreatment and avoid side effects were discussed. Usual follow up is 3 months for LFT and Lipid profile. Patient education including dietary guidelines and materials provided.N40.0 Benign prostatic hyperplasia without lower urinary tract symptomsComments:yearly digital examyearly psaSymptoms and signs reviewed and therapy such as medication , vitamins, diet supplements and their risks and benefits discussed. Symptom progression and referral to urology as appropriate for symptom progression and severity discussed and ordered. The importance of medication compliance when appropriate discussed and the effects of other medications such as antihistamines and OTC cold medicines considered and discussed with patient. Lab work as appropriate and follow up symptomatically and with FELICIA yearly arrangedyearly digital examyearly psaSymptoms and signs reviewed and therapy such as medication, vitamins, diet supplements and their risks and benefits discussed. Symptom progression and referral to urology as appropriate for symptom progression and severity discussedand ordered. The importance of medication compliance when appropriate discussed and the effects of other medications such as antihistamines and OTC cold medicines considered and discussed with patient.Lab work as appropriate and follow up symptomatically and with FELICIA yearly kcfnzmweL32.9 Chronic hepatitis, xcyvcewqyfmJ27.9 Vitamin D deficiency, unspecified Functional Status Description No Information Available Mental Status Description No Information Available Referrals Description No Information Available
[2018-12-02 15:35] VITALS: BP 122/60
--- NOTE | 2018-12-02 15:39 | UC ---
Respiratory Complaint HPI - HPI Summary HPI Summary: PRODUCTIVE COUGH FOR ONE WEEK, STATES GREEN SPUTUM. NO FEVER OR CHILLS. DENIES SOB. POST NASAL DRIP. COUGH IS KEEPING HIM UP AT NIGHT. NO HEAD OR BODY ACHES - History of Current Complaint Chief Complaint: UCRespiratory Stated Complaint: COUGH Time Seen by Provider: 12/02/18 15:28 Hx Obtained From: Patient Onset/Duration: Sudden Onset, Lasting Weeks Timing: Constant Severity Initially: Mild Severity Currently: Mild Pain Intensity: 0 Character: Cough: Productive Aggravating Factors: Deep Breaths, Recumbent Position Alleviating Factors: Nothing Associated Signs And Symptoms: Positive: Wheezing, URI - Allergies/Home Medications Allergies/Adverse Reactions: Allergies Allergy/AdvReac Type Severity Reaction Status Date / Time aspirin Allergy Rash Verified 12/02/18 15:18 latex Allergy Rash Verified 12/02/18 15:18 Penicillins Allergy Rash Verified 12/02/18 15:18 Home Medications: Home Medications Calcium Carbonate/Vitamin D3 [Calcium 600 + Vit D Tablet] 1 each PO DAILY [History Confirmed 12/02/18] Fenofibrate(NF) [Tricor(NF)] 145 mg PO DAILY 12/02/18 [History Confirmed ] Levothyroxine TAB* [Synthroid TAB*] 150 mcg PO DAILY 12/02/18 [History Confirmed 12/02/18] metFORMIN* [Glucophage 500 MG TAB *] 750 mg PO DAILY 12/02/18 [History Confirmed 12/02/18] PMH/Surg Hx/FS Hx/Imm Hx Previously Healthy: Yes - Surgical History Surgical History: Yes Surgery Procedure, Year, and Place: 1979 thyroidectomy for hyperthyroid [facility]. SURGERY ON BOTH EYES FOR LAZY EYE AT . [facility] 2002 -UMBILICAL [facility]ERNIA and at - [id number] RT [facility] [place]. BILATERAL CATARACTS-SCREW IN RIGHT HIP AT . VASECTOMY - Family History Known Family History: Positive: Hypertension, Diabetes - Social History Alcohol Use: None Substance Use Type: None Smoking Status (MU): Never Smoked Tobacco - Immunization History Most Recent Tetanus Shot: unsure Review of Systems All Other Systems Reviewed And Are Negative: Yes ENT: Positive: Sore Throat Respiratory: Positive: Cough Neurological: Positive: Headache Is Patient Immunocompromised?: No Physical Exam Triage Information Reviewed: Yes Appearance: Well-Nourished, Ill-Appearing, Pain Distress Vital Signs: Initial Vital Signs Temp 98.1 F 12/02/18 15:28 Pulse 50 12/02/18 15:28 Resp 20 12/02/18 15:28 BP 122/60 12/02/18 15:28 Pulse Ox 96 12/02/18 15:28 Vital Signs Reviewed: Yes Eye Exam: Normal ENT: Positive: Pharyngeal erythema - with PND large amount, Nasal congestion, TMs normal Neck exam: Normal Respiratory Exam: Normal Respiratory: Positive: Chest non-tender, Lungs clear, Normal breath sounds Cardiovascular: Positive: Brisk Capillary Refill, Bradycardia, Other: - hear rate is irregular Abdominal Exam: Normal Abdomen Description: Positive: Nontender, No Organomegaly, Soft Bowel Sounds: Positive: Present Musculoskeletal Exam: Normal Neurological Exam: Normal Psychological Exam: Normal Skin Exam: Normal Respiratory Course/Dx - Course Course Of Treatment: hx obtained, exam performed ,meds reviewed, treated for post nasal drip, patient has appointment with Dr belcher next week, recommend follow up at that time - Differential Dx/Diagnosis Differential Diagnosis/HQI/PQRI: Bronchitis, Laryngitis, Sinusitis, Tuberculosis Provider Diagnosis: Cough, Post-nasal drip Discharge ED - Sign-Out/Discharge Documenting (check all that apply): Patient Departure All imaging exams completed and their final reports reviewed: No Studies - Discharge Plan Condition: Stable Disposition: HOME Prescriptions: Loratadine 10 mg PO DAILY #30 capsule Patient Education Materials: Rhinosinusitis (ED) Referrals: Rocco Belcher MD [Primary Care Provider] - Additional Instructions: 1. take a zyrtec daily 2. salt water gargles, and clear fluids 3. FOllow up with Dr Belcher. - Billing Disposition and Condition Condition: STABLE Disposition: Home
== END 2018-12-02 16:06 | disposition home or self-care (01) ==
LOC: UCCORT 14:28
DX: R05 Cough (principal); R09.82 Postnasal drip; R00.8 Other abnormalities of heart beat; R00.1 Bradycardia, unspecified; Z88.8 Allergy status to other drugs, medicaments and biological substances; Z91.040 Latex allergy status; Z88.0 Allergy status to penicillin
CPT/HCPCS: 99212; G0463

== ENCOUNTER 2018-12-04 11:45 | Emergency (ER) | payer MEDICARE, OTHER ==
[2018-12-04 12:03] VITALS: BP 109/62
[2018-12-04 12:33] LABS: Influenza A Molecular NEGATIVE (Negative); Influenza B Molecular NEGATIVE (Negative)
--- NOTE | 2018-12-22 15:27 | UC ---
Respiratory Complaint HPI - HPI Summary HPI Summary: pt c/o post nasal drip with green phlegm production and cough. pt states started about 5 days ago. - History of Current Complaint Chief Complaint: UCGeneralIllness Stated Complaint: FLU SYMPTOMS Time Seen by Provider: 12/04/18 12:11 Hx Obtained From: Patient Pain Intensity: 0 Pain Scale Used: 0-10 Numeric - Allergies/Home Medications Allergies/Adverse Reactions: Allergies Allergy/AdvReac Type Severity Reaction Status Date / Time aspirin Allergy Rash Verified 12/04/18 11:53 latex Allergy Rash Verified 12/04/18 11:53 Penicillins Allergy Rash Verified 12/04/18 11:53 Home Medications: Home Medications Guaifenesin/Dextromethorphan [Robitussin Cough+Chest Co 10-200 mg] 1 cap PO [History] PMH/Surg Hx/FS Hx/Imm Hx Previously Healthy: Yes Endocrine History: Thyroid Disease Cardiovascular History: Cardiac Disease, Hypertension GI/ History: Other - Surgical History Surgical History: Yes Surgery Procedure, Year, and Place: 1979 thyroidectomy for hyperthyroid [facility]. SURGERY ON BOTH EYES FOR LAZY EYE AT . [facility] 2002 -UMBILICAL HERNIA and at - [id number] [place]. BILATERAL CATARACTS-SCREW IN RIGHT HIP AT . VASECTOMY - Family History Known Family History: Positive: Hypertension, Diabetes - Social History Alcohol Use: None Substance Use Type: None Smoking Status (MU): Never Smoked Tobacco - Immunization History Most Recent Tetanus Shot: unsure Review of Systems All Other Systems Reviewed And Are Negative: Yes Constitutional: Negative: Fever, Chills, Fatigue ENT: Positive: Nasal Discharge, Sinus Congestion, Sinus Pain/Tenderness. Negative: Sore Throat Respiratory: Positive: Cough. Negative: Shortness Of Breath Cardiovascular: Negative: Chest Pain Neurological: Negative: Headache Physical Exam Triage Information Reviewed: Yes Appearance: Well-Appearing Vital Signs: Initial Vital Signs Temp 99.9 F 12/04/18 11:49 Pulse 58 12/04/18 11:49 Resp 18 12/04/18 11:49 BP 109/62 12/04/18 11:49 Pulse Ox 96 12/04/18 11:49 Vital Signs Reviewed: Yes Eyes: Positive: Conjunctiva Clear ENT: Positive: Pharynx normal, TMs normal, Uvula midline. Negative: Sinus tenderness Neck: Positive: No Lymphadenopathy Respiratory Exam: Normal Cardiovascular Exam: Normal Neurological: Positive: Alert Respiratory Course/Dx - Course Course Of Treatment: LIkely viral etiology but pt. has insisted on antibx. vitals are good and exam unremarkable. we reviewed his allergies and he wanted to take doxy. - Differential Dx/Diagnosis Differential Diagnosis/HQI/PQRI: Sinusitis, Other Provider Diagnosis: URI (upper respiratory infection) Discharge ED - Sign-Out/Discharge Documenting (check all that apply): Patient Departure All imaging exams completed and their final reports reviewed: No Studies - Discharge Plan Condition: Good Disposition: HOME Prescriptions: DOXYcycline CAP(*) [DOXYcycline 100MG CAP(*)] 100 mg PO BID 5 Days #10 cap Patient Education Materials: Sinusitis (ED) Referrals: Rocco Ventura MD [Primary Care Provider] - Additional Instructions: I do not think this is bacterial but you have decided to take antibiotics. We discussed side effects of antibiotics and that it may not be effective. - Billing Disposition and Condition Condition: GOOD Disposition: Home
== END 2018-12-04 12:53 | disposition home or self-care (01) ==
LOC: UCEAST 11:45
DX: J06.9 Acute upper respiratory infection, unspecified (principal); I10 Essential (primary) hypertension; Z88.0 Allergy status to penicillin; Z88.6 Allergy status to analgesic agent; Z91.040 Latex allergy status
CPT/HCPCS: 99212; G0463

== ENCOUNTER 2019-02-13 11:24 | Emergency (ER) | payer MEDICARE, OTHER ==
--- OUTSIDE RECORDS SUMMARY | 2019-02-13 12:27 | XMS REPORT | Continuity of Care Document ---
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 [phone] Problems Active Problems Provider Date Hyperlipidemia Rocco [...] HCL 1 by mouth every [facility] 10[facility] day Tablets Vitamin B-12 1 by mouth every 90tabs [facility] 02/01/2018 Natural day 500mcg Tablets Magnesium one tablet twice 180caps E83.40 [facility] 11/15/2017 500mg Capsules a day Vitamin D3 1 by mouth every 90caps [facility] 06/04/2015 5000Unit day Capsules Cpap Mask And Supples as directed Kamran Ventural 05/31/2014 Coplay 3 2 by mouth every 180caps [facility] 04/18/2014 1000mg Capsules day Cpap Machine Please dispense Rocco Ventura 05/04/2012 a mask, hose and filter. Dx Sleep Apnea Flomax 1 by mouth every 90caps [facility] 09/16/2010 0.4mg Capsules day Bystolic 1 by mouth every 90tabs [facility] 04/26/2009 5mg Tablets day Lipitor 1 by mouth every 90tabs [facility] 04/26/2009 40mg Tablets day Tricor 1 by mouth every 90tabs [facility] 04/26/2009 145mg Tablets day Altace 1qd - take one 90caps [facility] 04/26/2009 10mg Capsules capsule by mouth every day Dexilant 1 by mouth every 90caps [facility] 60mg Caps[address] day Viberzi 1 by mouth twice 180tabs [facility] 100mg Tablets a day History Medications A & D Cream Apply Twice Daily as Needed 45gm Lamonika Rocco 06/21/2018 - Immunizations CPT Code Status Date Vaccine Lot # [id number] Given 10/11/2018 Influenza Virus (Quadrivalent)Splitvirus 3 [id number] Years Of Age And Older 88505 Given 10/11/2018 Influenza Virus Vaccine, Quadrivalent, Split, Preservative Free [id number] Given 11/15/2017 Tetanus,Diphtheria,Adut/Adol Pertussis [id number] Q2035 Given 11/08/2017 Influenza Virus (Quadrivalent)Splitvirus 3 Years Of Age And Older Q2035 Given 10/30/2016 Influenza Virus (Quadrivalent)Splitvirus 3 Years Of Age And Older 19285 Given 09/03/2016 Pneumococcal Conjugate Vaccine 13 Valent For [id number] Intramuscular Use Q2037 Given 11/11/2015 Influenza Vaccine (Fluvirin) 4 Years Of Age Or [id number] Older Q2035 Given 10/16/2014 Influenza Virus (Quadrivalent)Splitvirus 3 [id number] Years Of Age And Older 47637 Given 01/02/2014 Pneumovax Polyvalent Inj Im Q2037 Given 12/05/2013 Influenza Vaccine (Fluvirin) 4 Years Of Age Or Older Q2035 Given 11/16/2012 Influenza Virus (Quadrivalent)Splitvirus 3 Years Of Age And Older Q2035 Given 11/16/2012 Influenza Virus (Quadrivalent)Splitvirus 3 [id number] Years Of Age And Older Q2037 Given 12/01/2011 Influenza Vaccine (Fluvirin) 4 Years Of Age Or [id number] Older Q2036 Given 12/30/2010 Flulaval [id number] 97220 Given 12/30/2010 Influenza Vaccine [id number] Given 05/12/2010 Tetanus Shot 91170 Given 11/05/2009 Influenza Vaccine [id number] 95274 Given 11/15/2008 [place] [address] Given Unknown Zostavax Vital Signs Date Vital Result Comment 12/21/2018 11:19am BP Systolic 122 mmHg BP Diastolic 80 mmHg Heart Rate 64 /min Respiratory Rate 16 /min Weight 211.00 lb 11/28/2018 11:17am BP Systolic 124 mmHg BP Diastolic 68 mmHg Heart Rate 50 /min Height 68 inches 5'8" Weight 209.00 lb BMI (Body Mass Index) 31.8 kg/m2 O2 % BldC Oximetry 94 % Results Test Acquired Date Facility Test Result H/L Range Note Rapid Influenza 12/04/2018 [facility] Influenza A NEGATIVE Negative 1 A & B Molecular [address] Molecular [place], [place] [id number] [phone] Influenza B Molecular NEGATIVE Negative TSH Reflex 11/23/2018 [facility] Thyroid Stim 0.77 uIU/mL Normal 0.30-4.20 2 FT4 And/Or [address] Hormone FT3 [place], [place] [id number] [phone] Reflex add FT3? N Reflex add FT4? N LDL Cholesterol 11/23/2018 [facility] Cholesterol 172 mg/dL <200 [address] [place] [id number] [phone] Triglycerides 191 mg/dL High <150 4 HDL Cholesterol 35 mg/dL Low >40 5 LDL-Cholesterol 99 mg/dL < 100 6 Reflex add FT3? N Reflex add FT4? N Magnesium 11/23/2018 [facility] Magnesium 1.8 mg/dL Normal 1.8-2.[address] [place] [address] [phone] Reflex add FT3? N Reflex add FT4? N Comprehensive 11/23/2018 [facility] Glucose 135 mg/ dL High 74-106 Metabolic Panel [address] [place] [address] [phone] BUN 33 mg/dL High 7-18 Creatinine 1.7 mg/dL High 0.6-1.3 Glom Filtration Rate, Estimate 43 mL/min >60 If 52 mL/min >60 7 BUN/Creat 19.4 ratio Sodium 141 mmol/L Normal [...] N Reflex add FT4? N Glycohemoglobin 11/23/2018 [facility] Glycohemoglobin 6.5 % High 4.2-6.3 [address] (A1c) [place], [place] [id number] [phone] eAG 140 mg/dL Laboratory test 11/23/2018 [facility] Glycohemoglobin A1c <pending> finding [address] [place], [place] [address] [phone] TSH Reflex FT4 And/Or FT3 <pending> CBS W/Automated 11/23/2018 [facility] White 4.5 K/uL Normal 3.4-10.[address] [place] [address] Count [phone] Red Blood Count 4.46 M/uL Normal 4.20-5.80 [...] 33.0-73.0 Lymph % 34.2 % Normal 20.0-42.0 [place] % 6.3 % Normal 0.0-10.0 Eo% 3.8 % Normal 0.0-6.6 Bas% 1.3 % High 0.0-1.1 Immature Grans 0.2 % Normal 0.0-5.0 NRBC % 0.0 /100WBC < 10/ 100 WBC Neut# 2.43 K/uL Normal 1.8-7.0 Lymph # 1.53 K/uL Normal 1.0-4.0 [place] # 0.28 K/uL Normal 0.0-0.8 Eos # 0.17 K/uL Normal 0.0-0.5 Baso # 0.06 K/uL Normal 0.0-0.1 Immature Grans Absolute 0.01 K/uL NRBC # 0.00 K/uL Direct LDL 11/23/2018 [facility] LDL Chol. 97 mg/dL 0-[address] (Direct) [place] [address] [phone] Laboratory test 11/23/2018 [facility] Prostatic Acid 1.1 ng/mL 0.0-3.5 [address] Phos,[place] [address] [phone] Vitamin D,25-Hydroxy 44.9 ng/mL 30.0-100.0 10 Laboratory 11/23/2018 [facility] Magnesium <pending> test finding [address] [place] [address] [phone] Laboratory 08/17/2018 [facility] Free T4 1.0 ng/dL . 11, test finding [address] Dialysis/Mass [address] [place] [address] Qmmwf [phone] Laboratory 08/17/2018 [facility] Vitamin 37.4 ng/mL 30.0-100.0 13 test finding [address] D,25[place] [address] [phone] Hepatitis 08/17/2018 [facility] Hepatitis A Negative Negative Evaluation [address] [place] [place] [address] [phone] HBsAg Screen [Ref Lab] Negative Negative Hepatitis B Core IgM Negative Negative HCV Signal/Cutoff ratio < 0.1 s/corat 0.0-0.9 14 Laboratory test 08/17/2018 [facility] Thyroid Stim 4.89 uIU/mL High 0.30-4.[address] [place] [address] [phone] Free T4 0.93 ng/dL Normal 0.76-1.46 LDL Cholesterol 08/17/2018 [facility] Cholesterol 180 mg/dL <200 [address] [place] [address] [phone] Triglycerides 330 mg/dL High <150 16 HDL Cholesterol 31 mg/dL Low >40 17 LDL-Cholesterol 83 mg/dL < 100 18 Laboratory test 08/17/2018 [facility] Magnesium 1.6 mg/dL Low 1.8-2.[address] [place] [address] [phone] Comprehensive 08/17/2018 [facility] Glucose 147 mg/ dL High 74-106 Metabolic Panel [address] [place] [address] [phone] BUN 36 mg/dL High 7-18 Creatinine 1.3 mg/dL Normal 0.6-1.3 Glom Filtration Rate, Estimate 59 mL/min >60 If >60 mL/min >60 19 BUN/Creat 27.6 ratio Sodium 138 mmol/L Normal [...] 40 U/L Low 45-117 CBS W/Automated 08/17/2018 [facility] White 4.3 K/uL Normal 3.4-10.[address] [place] [address] Count [phone] Red Blood Count 4.40 M/uL Normal 4.20-5.80 [...] 33.0-73.0 Lymph % 34.8 % Normal 20.0-42.0 [place] % 6.7 % Normal 0.0-10.0 Eo% 4.9 % Normal 0.0-6.6 Bas% 0.9 % Normal 0.0-1.1 Immature Grans 0.2 % Normal 0.0-5.0 NRBC % 0.0 /100WBC < 10/ 100 WBC Neut# 2.26 K/uL Normal 1.8-7.0 Lymph # 1.50 K/uL Normal 1.0-4.0 [place] # 0.29 K/uL Normal 0.0-0.8 Eos # 0.21 K/uL Normal 0.0-0.5 Baso # 0.04 K/uL Normal 0.0-0.1 Immature Grans Absolute 0.01 K/uL NRBC # 0.00 K/uL Glycohemoglobin 08/17/2018 [facility] Glycohemoglobin 7.2 % High 4.2-6.3 [address] (A1c) [place], [place] [address] [phone] eAG 160 mg/dL Laboratory test 07/20/2018 [facility] Thyroid Stim 4.21 High 0.30-4.20 [address] Hormone uIU/mL [place], [place] [address] [phone] Free T4 0.90 ng/dL Normal 0.76-1.46 CBS W/Automated 07/20/2018 [facility] White 4.0 K/uL Normal 3.4-10.[address] [place] [address] Count [phone] Red Blood Count 4.45 M/uL Normal 4.20-5.80 [...] 33.0-73.0 Lymph % 35.8 % Normal 20.0-42.0 [place] % 6.8 % Normal 0.0-10.0 Eo% 4.3 % Normal 0.0-6.6 Bas% 1.3 % High 0.0-1.1 Immature Grans 0.5 % Normal 0.0-5.0 NRBC % 0.0 /100WBC < 10/ 100 WBC Neut# 2.06 K/uL Normal 1.8-7.0 Lymph # 1.43 K/uL Normal 1.0-4.0 [place] # 0.27 K/uL Normal 0.0-0.8 Eos # 0.17 K/uL Normal 0.0-0.5 Baso # 0.05 K/uL Normal 0.0-0.1 Immature Grans Absolute 0.02 K/uL NRBC # 0.00 K/uL Comprehensive 07/20/2018 [facility] Glucose 160 mg/ dL High 74-106 Metabolic Panel [address] [place], [place] [address] [phone] BUN 27 mg/dL High 7-18 Creatinine 1.1 [...] 12-78 Alkaline Phosphatase 44 U/L Low 45-117 Glycohemoglobin 07/20/2018 [facility] Glycohemoglobin 7.4 % High 4.2-6.3 [address] (A1c) [place] [address] [phone] eAG 166 mg/dL Laboratory test 07/20/2018 [facility] Magnesium 1.3 mg/dL Low 1.8-2.[address] [place] [address] [phone] 1 Bookkeeping Clerk: [id number] 2 I34.0, D64.9, E78.5, E61.2, 03.9 3 Reference Guidelines*: Desirable: ........... < 200 mg/dL Borderline High: ..... 200-239 mg/dL High: ................ >= 240 mg/dL * The National Cholesterol Education Program (NCEP) 4 Reference Guidelines*: Normal: ............. < 150 mg/dL Borderline High: .... 150-199 mg/dL High: ............... 200-499 mg/dL Very High: .......... > 500 mg/dL * Source: National Cholesterol Education Program (NCEP) 5 Reference Guidelines*: Low HDL: ..... < 40 mg/dL Normal: ..... 40-60 mg/dL Desirable: ... > 60 mg/dL *The National Cholesterol Education Program(NCEP) 6 Reference Guidelines*: Optimal:........... <100 mg/dL Near Optimal....... 100-129 mg/dL Borderline High.... 130-159 mg/dL High............... 160-189 mg/dL Very High.......... >=190 mg/dL * Source: National Cholesterol Education Program (NCEP) 7 Note: Persistent reduction for 3 months or more in an eGFR <60 mL/min/1.73 m2 defines CKD. Patients with eGFR values >/=60 mL/min/1.73 m2 may also have CKD if evidence of persistent proteinuria is present. The original MDRD equation for estimated GFR is not valid for patients less than 18 years of age. Additional information may be found at www.kdoqi.org. 8 Elevated levels of HbA1c suggest the need for more aggressive treatment of glycemia. The [place] [employer] Association recommends that a primary goal of therapy should be a HbA1c of <7% and that physicians should re-evaluate the treatment regimen in patients with HbA1c values consistently >8%. 9 Biz360 2000 methodology. Values obtained with different assay methods or kits cannot be used interchangeably. Results cannot be interpreted as absolute evidence of the presence or absence of malignant disease. Performed at: - [facility] [address] [id number] Check Processing Clerk: Jannie Luna MD, Phone: [phone] Performed at: [facility] [id number] Check Processing Clerk: Ivan Rodriguez MD, Phone: [phone] 10 Vitamin D deficiency has been defined by the [place] of [employer] and an Endocrine Society practice guideline as a level of serum 25-OH vitamin D less than 20 ng/mL (1,2). The Endocrine Society went on to further define vitamin D insufficiency as a level between 21 and 29 ng/mL (2). 1. IOM ([place] of [employer]). 2010. Dietary reference intakes for calcium and D. [place]: The National Academies Press. 2. Kathryn MF, Sheri NC, Oly VILLARREAL, et al. Evaluation, treatment, and prevention of vitamin D deficiency: an Endocrine Society clinical practice guideline. JCEM. 2010; 96(7):1911-30. Performed at: - [facility] [address] [id number] Check Processing Clerk: Jannie Luna MD, Phone: [phone] 11 NO DX 12 Reference Range: Pubertal Children and Adults: 0.8 - 1.7 Performed at: [facility] [address] [place] [id number] Check Processing Clerk: Ron Pastor MD, Phone: [phone] 13 Vitamin D deficiency has been defined by the [place] of [employer] and an Endocrine Society practice guideline as a level of serum 25-OH vitamin D less than 20 ng/mL (1,2). The Endocrine Society went on to further define vitamin D insufficiency as a level between 21 and 29 ng/mL (2). 1. IOM ([place] of [employer]). 2010. Dietary reference intakes for calcium and D. [place]: The National Academies Press. 2. Kathryn MF, Sheri HERNANDEZ, Oly VILLARREAL, et al. Evaluation, treatment, and prevention of vitamin D deficiency: an Endocrine Society clinical practice guideline. JCEM. 2010; 96(7):1911-30. Performed at: - [facility] [id number] Check Processing Clerk: Jannie Luna MD, Phone: [phone] 14 INFCE Result Units: s/co ratio Negative: < 0.8 Indeterminate: 0.8 - 0.9 Positive: > 0.9 The CDC recommends that a positive HCV antibody result be followed up with a HCV Nucleic Acid Amplification test (238554). Performed at: [facility] [address] [id number] Check Processing Clerk: Jannie Luna MD, Phone: [phone] 15 Reference Guidelines*: Desirable: ........... < 200 mg/dL Borderline High: ..... 200-239 mg/dL High: ................ >= 240 mg/dL * The National Cholesterol Education Program (NCEP) 16 Reference Guidelines*: Normal: ............. < 150 mg/dL Borderline High: .... 150-199 mg/dL High: ............... 200-499 mg/dL Very High: .......... > 500 mg/dL * Source: National Cholesterol Education Program (NCEP) 17 Reference Guidelines*: Low HDL: ..... < 40 mg/dL Normal: ..... 40-60 mg/dL Desirable: ... > 60 mg/dL *The National Cholesterol Education Program(NCEP) 18 Reference Guidelines*: Optimal:........... <100 mg/dL Near Optimal....... 100-129 mg/dL Borderline High.... 130-159 mg/dL High............... 160-189 mg/dL Very High.......... >=190 mg/dL * Source: National Cholesterol Education Program (NCEP) 19 Note: Persistent reduction for 3 months or more in an eGFR <60 mL/min/1.73 m2 defines CKD. Patients with eGFR values >/=60 mL/min/1.73 m2 may also have CKD if evidence of persistent proteinuria is present. The original MDRD equation for estimated GFR is not valid for patients less than 18 years of age. Additional information may be found at www.kdoqi.org. 20 Elevated levels of HbA1c suggest the need for more aggressive treatment of glycemia. The [place] Diabetes Association recommends that a primary goal of therapy should be a HbA1c of <7% and that physicians should re-evaluate the treatment regimen in patients with HbA1c values consistently >8%. 21 E06.9 E07.9 E78.2 E03.9 E83.40 E11.9 22 Note: Persistent reduction for 3 months or more in an eGFR <60 mL/min/1.73 m2 defines CKD. Patients with eGFR values >/=60 mL/min/1.73 m2 may also have CKD if evidence of persistent proteinuria is present. The original MDRD equation for estimated GFR is not valid for patients less than 18 years of age. Additional information may be found at www.kdoqi.org. 23 Elevated levels of HbA1c suggest the need for more aggressive treatment of glycemia. The [place] Diabetes Association recommends that a primary goal of therapy should be a HbA1c of <7% and that physicians should re-evaluate the treatment regimen in patients with HbA1c values consistently >8%. Procedures Date Code Description Status 07/27/2018 16090 Spirometry Graphic Record/Max Voluntary Vent Completed 10/29/2016 286864389 Bone Mineral Density Test Completed 09/23/2010 61548362 Colonoscopy Completed Medical Devices Description No Information Available Encounters Type Date Location Provider Dx Diagnosis Office Visit 12/21/2018 11:15a Main Office Rocco Ventura E61.2 Magnesium deficiency J44.9 Chronic obstructive pulmonary disease, unspecified I65.23 Occlusion and stenosis of bilateral carotid arteries K58.0 Irritable bowel syndrome with diarrhea I34.0 Nonrheumatic mitral (valve) insufficiency F02.80 Dementia in oth diseases classd elswhr w/o behavrl disturb K21.9 Gastro-esophageal reflux disease without esophagitis G47.33 Obstructive sleep apnea (adult) (pediatric) D64.9 Anemia, unspecified I25.10 Athscl heart disease of [place] coronary artery w/o ang pctrs E03.9 Hypothyroidism, unspecified E55.9 Vitamin D deficiency, unspecified I11.9 Hypertensive heart disease without heart failure E78.5 Hyperlipidemia, unspecified N40.0 Benign prostatic hyperplasia without lower urinry tract symp K73.9 Chronic hepatitis, unspecified I49.1 Atrial premature depolarization E11.9 Type 2 diabetes mellitus without complications E66.09 Other obesity due to excess calories Office Visit 11/28/2018 11:00a Main Office Rocco Ventura E61.2 Magnesium deficiency J44.9 Chronic obstructive pulmonary disease, unspecified I65.23 Occlusion and stenosis of bilateral carotid arteries K58.0 Irritable bowel syndrome with diarrhea I34.0 Nonrheumatic mitral (valve) insufficiency F02.80 Dementia in oth diseases classd elswhr w/o behavrl disturb K21.9 Gastro-esophageal reflux disease without esophagitis G47.33 Obstructive sleep apnea (adult) (pediatric) D64.9 Anemia, unspecified I25.10 Athscl heart disease of [place] coronary artery w/o [facility] pctrs E03.9 Hypothyroidism, unspecified E55.9 Vitamin D deficiency, unspecified I11.9 Hypertensive heart disease without heart failure R73.01 Impaired fasting glucose Office Visit 11/09/2018 11:45a Main Office Rocco [...] Anemia, unspecified I25.10 Athscl heart disease of [place] coronary artery w/o ang pctrs E11.65 Type [...] Anemia, unspecified I25.10 Athscl heart disease of [place] coronary artery w/o ang pctrs E11.65 Type [...] Anemia, unspecified I25.10 Athscl heart disease of [place] coronary artery w/o ang pctrs I49.1 Atrial [...] Magnesium deficiency Assessments Date Code Description Provider 12/21/2018 E61.2 Magnesium deficiency Rocco Ventura 12/21/2018 J44.9 Chronic obstructive pulmonary disease, unspecified Rocco Ventura 12/21/2018 I65.23 Occlusion and stenosis of bilateral carotid arteries Rocco Ventura 12/21/2018 K58.0 Irritable bowel syndrome with diarrhea Rocco Ventura 12/21/2018 I34.0 Nonrheumatic mitral (valve) insufficiency Rocco Ventura 12/21/2018 F02.80 Dementia in other diseases classified elsewhere without Rocco Ventura behaviora 12/21/2018 K21.9 Gastro-esophageal reflux disease without esophagitis Rocco Ventura 12/21/2018 G47.33 Obstructive sleep apnea (adult) (pediatric) Rocco Ventura 12/21/2018 D64.9 Anemia, unspecified Lorenzo, Rocco 12/21/2018 I25.10 Atherosclerotic heart disease of [place] coronary artery Kamran Ventural without angina pectoris 12/21/2018 E03.9 Hypothyroidism, unspecified Lorenzo, Rocco 12/21/2018 E55.9 Vitamin D deficiency, unspecified Lorenzo, Rocco 12/21/2018 I11.9 Hypertensive heart disease without heart failure Lorenzo, Rocco 12/21/2018 E78.5 Hyperlipidemia, unspecified Lorenzo, Rocco 12/21/2018 N40.0 Benign prostatic hyperplasia without lower urinary Kamran Ventural tract symptoms 12/21/2018 K73.9 Chronic hepatitis, unspecified Lorenzo, [facility] 12/21/2018 I49.1 Atrial premature depolarization Kamran Ventural 12/21/2018 E11.9 Type 2 diabetes mellitus without complications Kamran Ventural 12/21/2018 E66.09 Other obesity due to excess calories Kamran Ventural 11/28/2018 E61.2 Magnesium deficiency Lorenzo Rocco 11/28/2018 J44.9 Chronic obstructive pulmonary disease, unspecified Lorenzo, [facility] 11/28/2018 I65.23 Occlusion and stenosis of bilateral carotid arteries Lorenzo [facility] 11/28/2018 K58.0 Irritable bowel syndrome with diarrhea Lorenzo, [facility] 11/28/2018 I34.0 Nonrheumatic mitral (valve) insufficiency Lorenzo, [facility] 11/28/2018 F02.80 Dementia in other diseases classified elsewhere without Kamran Ventural behaviora 11/28/2018 K21.9 Gastro-esophageal reflux disease without esophagitis Lorenzo , [facility] 11/28/2018 G47.33 Obstructive sleep apnea (adult) (pediatric) Lorenzo, Rocco 11/28/2018 D64.9 Anemia, unspecified Lorenzo, [facility] 11/28/2018 I25.10 Atherosclerotic heart disease of [place] coronary artery Kamran Ventural without angina pectoris 11/28/2018 E03.9 Hypothyroidism, unspecified Lorenzo, Rocco 11/28/2018 E55.9 Vitamin D deficiency, unspecified Lorenzo, Rocco 11/28/2018 I11.9 Hypertensive heart disease without heart failure Kamran Ventural 11/28/2018 R73.01 Impaired fasting glucose Kamran Ventural 11/09/2018 E61.2 Magnesium deficiency [place], [facility] 11/09/2018 J44.9 Chronic obstructive pulmonary disease, unspecified [facility], [facility] 11/09/2018 I65.23 Occlusion and stenosis of bilateral carotid arteries [facility] , [facility] 11/09/2018 K58.0 Irritable bowel syndrome with diarrhea [facility], [facility] 11/09/2018 I34.0 Nonrheumatic mitral (valve) insufficiency [facility], [facility] 11/09/2018 F02.80 Dementia in other diseases classified elsewhere without Gauss, Rocco behaviora 11/09/2018 K21.9 Gastro-esophageal reflux disease without esophagitis [facility] , [facility] 11/09/2018 G47.33 Obstructive sleep apnea (adult) (pediatric) [facility], [facility] 11/09/2018 R19.7 Diarrhea, unspecified [facility], [facility] 11/09/2018 D64.9 Anemia, unspecified [facility], [facility] 11/09/2018 I25.10 Atherosclerotic heart disease of [place] coronary artery Kamran Ventural without angina pectoris 11/09/2018 E11.65 Type 2 diabetes mellitus with hyperglycemia [facility], [facility] 11/09/2018 E03.9 Hypothyroidism, unspecified [facility], [facility] 11/09/2018 E78.5 Hyperlipidemia, unspecified [facility], [facility] 11/09/2018 N40.0 Benign prostatic hyperplasia without lower urinary Lamonika Rocco tract symptoms 11/09/2018 K73.9 Chronic hepatitis, unspecified [facility] 11/09/2018 E55.9 Vitamin D deficiency, unspecified [facility], [facility] 10/11/2018 E61.2 Magnesium deficiency [facility], [facility] 10/11/2018 J44.9 Chronic obstructive pulmonary disease, unspecified Gauss, [facility] 10/11/2018 I65.23 Occlusion and stenosis of bilateral carotid arteries [facility] , [facility] 10/11/2018 K58.0 Irritable bowel syndrome with diarrhea [facility], [facility] 10/11/2018 I34.0 Nonrheumatic mitral (valve) insufficiency [facility], [facility] 10/11/2018 F02.80 Dementia in other diseases classified elsewhere without Gauss, Rocco behaviora 10/11/2018 K21.9 Gastro-esophageal reflux disease without esophagitis [place] , [facility] 10/11/2018 G47.33 Obstructive sleep apnea (adult) (pediatric) [...] Rocco 08/23/2018 I25.10 Atherosclerotic heart disease of [place] coronary artery Kamran Ventural without angina pectoris 08/23/2018 E11.65 Type 2 diabetes mellitus with hyperglycemia Gauss, [place] 08/23/2018 E03.9 Hypothyroidism, unspecified Gauss, [place] 07/28/2018 E61.2 Magnesium deficiency Gauss, [place] 07/28/2018 J44.9 Chronic obstructive pulmonary disease, unspecified Gauss, [place] 07/28/2018 I65.23 Occlusion and stenosis of bilateral carotid arteries Gauss , [place] 07/28/2018 K58.0 Irritable bowel syndrome with diarrhea Gauss, [facility] 07/28/2018 I34.0 Nonrheumatic mitral (valve) insufficiency Gauss, [place] 07/28/2018 F02.80 Dementia in other diseases classified elsewhere without Gauss, [place] behaviora 07/28/2018 K21.9 Gastro-esophageal reflux disease without esophagitis Gauss , [place] 07/28/2018 E03.9 Hypothyroidism, unspecified Gauss, [place] 07/28/2018 I11.9 Hypertensive heart disease without heart failure Gauss, [place] 07/28/2018 E78.5 Hyperlipidemia, unspecified Gauss, [facility] 07/28/2018 N40.0 Benign prostatic hyperplasia without lower urinary Kam[place] Ventural tract symptoms 07/28/2018 G47.33 Obstructive sleep apnea (adult) (pediatric) [facility], [facility] 07/28/2018 R19.7 Diarrhea, unspecified [facility], [facility] 07/28/2018 D64.9 Anemia, unspecified [facility], [facility] 07/28/2018 I25.10 Atherosclerotic heart disease of [place] coronary artery [facility] [place] without angina pectoris 07/28/2018 I49.1 Atrial premature depolarization [facility], [facility] 07/28/2018 E11.9 Type 2 diabetes mellitus without complications [facility], [facility] 07/28/2018 K73.9 Chronic hepatitis, unspecified [facility], [facility] 07/28/2018 E55.9 Vitamin D deficiency, unspecified [facility], [facility] 07/27/2018 R06.02 Shortness of breath [facility], [place] 07/27/2018 J44.9 Chronic obstructive pulmonary disease, unspecified Gauss, [facility] 07/27/2018 R05 Cough Gauss, [facility] 06/21/2018 K58.0 Irritable bowel syndrome with diarrhea Gauss, [facility] 06/21/2018 J44.9 Chronic obstructive pulmonary disease, unspecified Gauss, [facility] 06/21/2018 I65.23 Occlusion and stenosis of bilateral carotid arteries [facility] , [facility] 06/21/2018 I34.0 Nonrheumatic mitral (valve) insufficiency [facility], [facility] 06/21/2018 F02.80 Dementia in other diseases classified elsewhere without Gauss, [place] behaviora 06/21/2018 K21.9 Gastro-esophageal reflux disease without esophagitis [place] [facility] 06/21/2018 E11.9 Type 2 diabetes mellitus without complications [place] [facility] 06/21/2018 E66.09 Other obesity due to excess calories [place] [facility] 06/21/2018 E03.9 Hypothyroidism, unspecified [place] [facility] 06/21/2018 N40.0 Benign prostatic hyperplasia without lower urinary [place] [facility] tract symptoms 06/21/2018 G47.33 Obstructive sleep apnea (adult) (pediatric) [place] [facility] 06/21/2018 I11.9 Hypertensive heart disease without heart failure [place] [facility] 06/21/2018 E61.2 Magnesium deficiency [place] [facility] Plan of Treatment Future Appointment(s):01/19/2019 8:00 am - Nurse at Main [id number]/24/2019 11: 15 am - [place] [facility] at Main [id number]/22/2019 8:00 am - Nurse at Main [id number] 10:00 am - [place] [facility] at Main Office Functional Status Description No Information Available Mental Status Description No Information Available Referrals Description No Information Available
--- OUTSIDE RECORDS SUMMARY | 2019-02-13 12:27 | XMS REPORT | Continuity of Care Document ---
:1950 External Reference #:[id number] Author Name Dedra Lazo Care Team Providers Name Role Phone Rocco Ventura MD - Internal Medicine Care Team Information Doughnut Fryer [phone] Problems Active Problems Provider Date Hyperlipidemia Rocco [...] HCL 1 by mouth every 90tabs F32.9 Kamran Ventural 07/28/2018 10mg day Tablets Vitamin B-12 1 by mouth every 90tabs Lorenzo Rocco 02/01/2018 Natural day 500mcg Tablets Magnesium one tablet twice 180caps E83.40 [facility] 11/15/2017 500mg Capsules a day Vitamin D3 1 by mouth every [facility] 5000Unit day Capsules Cpap Mask And Supples as directed Kamran Ventural 05/31/2014 [place] 3 2 by mouth every 180caps [facility] 04/18/2014 1000mg Capsules day Cpap Machine Please dispense Kamran Ventural 05/04/2012 a mask, hose and filter. Dx Sleep Apnea Flomax 1 by mouth every 90caps Lorenzo Rocco 09/16/2010 0.4mg Capsules day Bystolic 1 by [...] Cream Apply Twice Daily as Needed 45gm Kamran Ventural 06/21/2018 - Immunizations CPT Code Status Date Vaccine Lot # [id number] Given 10/11/2018 Influenza Virus (Quadrivalent)Splitvirus 3 [id number] Years Of Age And Older 12867 Given 10/11/2018 Influenza Virus Vaccine, Quadrivalent, Split, Preservative Free 36356 Given 11/15/2017 Tetanus,Diphtheria,Adut/Adol Pertussis [id number] Q2035 Given 11/08/2017 Influenza Virus (Quadrivalent)Splitvirus 3 Years Of Age And Older Q2035 Given 10/30/2016 Influenza Virus (Quadrivalent)Splitvirus 3 Years Of Age And Older 92892 Given 09/03/2016 Pneumococcal Conjugate Vaccine 13 Valent For [id number] Intramuscular Use Q2037 Given 11/11/2015 Influenza Vaccine (Fluvirin) 4 Years Of Age Or [id number] Older Q2035 Given 10/16/2014 Influenza Virus (Quadrivalent)Splitvirus 3 [id number] Years Of Age And Older 33953 Given 01/02/2014 Pneumovax Polyvalent Inj Im Q2037 Given 12/05/2013 Influenza Vaccine (Fluvirin) 4 Years Of Age Or Older Q2035 Given 11/16/2012 Influenza Virus (Quadrivalent)Splitvirus 3 Years Of Age And Older Q2035 Given 11/16/2012 Influenza Virus (Quadrivalent)Splitvirus 3 [id number] Years Of Age And Older Q2037 Given 12/01/2011 Influenza Vaccine (Fluvirin) 4 Years Of Age Or [id number] Older Q2036 Given 12/30/2010 Flulaval [id number] 19571 Given 12/30/2010 Influenza Vaccine 87102 Given 05/12/2010 Tetanus Shot 14419 Given 11/05/2009 Influenza Vaccine [id number] 56161 Given 11/15/2008 [place] [address] Given Unknown Zostavax Vital Signs Date Vital [...] Result H/L Range Note Rapid Influenza 12/04/2018 Benicia Lunagames Influenza A NEGATIVE Negative 1 A & B Molecular [address] Molecular [place], [place] [id number] [phone] Influenza B Molecular NEGATIVE Negative TSH Reflex 11/23/2018 [facility] Thyroid Stim 0.77 uIU/mL Normal 0.30-4.20 2 FT4 And/Or [address] Hormone FT3 [place], [place] [id number] [phone] Reflex add FT3? N Reflex add FT4? N LDL Cholesterol 11/23/2018 [facility] Cholesterol 172 mg/dL <200 [address] [place], [place] [id number] [phone] Triglycerides 191 mg/dL High <150 4 HDL Cholesterol 35 mg/dL Low >40 5 LDL-Cholesterol 99 mg/dL < 100 6 Reflex add FT3? N Reflex add FT4? N Magnesium 11/23/2018 [facility] Magnesium 1.8 mg/dL Normal 1.8-2.[address] [place], [place] [address] [phone] Reflex add FT3? N Reflex add FT4? N Comprehensive 11/23/2018 [facility] Glucose 135 mg/ dL High 74-106 Metabolic Panel [address] [place], [place] [address] [phone] BUN 33 mg/dL High 7-18 Creatinine 1.7 [...] N Reflex add FT4? N Glycohemoglobin 11/23/2018 [facility] Glycohemoglobin 6.5 % High 4.2-6.3 [address] (A1c) [place], [place] [id number] [phone] eAG 140 mg/dL Laboratory test 11/23/2018 [facility] Glycohemoglobin A1c <pending> finding [address] [place], [place] [address] [phone] TSH Reflex FT4 And/Or FT3 <pending> CBS W/Automated 11/23/2018 [facility] White 4.5 K/uL Normal 3.4-10.[address] [place] [address] Count [phone] Red Blood Count 4.46 M/uL Normal 4.20-5.80 [...] 33.0-73.0 Lymph % 34.2 % Normal 20.0-42.0 [place] % 6.3 % Normal 0.0-10.0 Eo% 3.8 % Normal 0.0-6.6 Bas% 1.3 % High 0.0-1.1 Immature Grans 0.2 % Normal 0.0-5.0 NRBC % 0.0 /100WBC < 10/ 100 WBC Neut# 2.43 K/uL Normal 1.8-7.0 Lymph # 1.53 K/uL Normal 1.0-4.0 [place] # 0.28 K/uL Normal 0.0-0.8 Eos # 0.17 K/uL Normal 0.0-0.5 Baso # 0.06 K/uL Normal 0.0-0.1 Immature Grans Absolute 0.01 K/uL NRBC # 0.00 K/uL Direct LDL 11/23/2018 [facility] LDL Chol. 97 mg/dL 0-[address] (Direct) [place] [address] [phone] Laboratory test 11/23/2018 [facility] Prostatic Acid 1.1 ng/mL 0.0-3.5 [address] Phos,[place] [address] [phone] Vitamin D,25-Hydroxy 44.9 ng/mL 30.0-100.0 10 Laboratory 11/23/2018 [facility] Magnesium <pending> test finding [address] [place] [address] [phone] Laboratory 08/17/2018 [facility] Free T4 1.0 ng/dL . 11, test finding [address] Dialysis/Mass 12 [place] [address] Spect [phone] Laboratory 08/17/2018 [facility] Vitamin 37.4 ng/mL 30.0-100.0 13 test finding [address] D,25[place] [address] [phone] Hepatitis 08/17/2018 [facility] Hepatitis A Negative Negative Evaluation [address] [place] [place] [address] [phone] HBsAg Screen [Ref Lab] Negative Negative Hepatitis B Core IgM Negative Negative HCV Signal/Cutoff ratio < 0.1 s/corat 0.0-0.9 14 Laboratory test 08/17/2018 [facility] Thyroid Stim 4.89 uIU/mL High 0.30-4.[address] [place] [address] [phone] Free T4 0.93 ng/dL Normal 0.76-1.46 LDL Cholesterol 08/17/2018 [facility] Cholesterol 180 mg/dL <200 [address] [place] [address] [phone] Triglycerides 330 mg/dL High <150 16 HDL Cholesterol 31 mg/dL Low >40 17 LDL-Cholesterol 83 mg/dL < 100 18 Laboratory test 08/17/2018 [facility] Magnesium 1.6 mg/dL Low 1.8-2.[address] [place], [place] [address] [phone] Comprehensive 08/17/2018 [facility] Glucose 147 mg/ dL High 74-106 Metabolic Panel [address] [place] [address] [phone] BUN 36 mg/dL High 7-18 Creatinine 1.3 [...] 40 U/L Low 45-117 CBS W/Automated 08/17/2018 [facility] White 4.3 K/uL Normal 3.4-10.[address] [place] [address] Count [phone] Red Blood Count 4.40 M/uL Normal 4.20-5.80 [...] 33.0-73.0 Lymph % 34.8 % Normal 20.0-42.0 [place] % 6.7 % Normal 0.0-10.0 Eo% 4.9 % Normal 0.0-6.6 Bas% 0.9 % Normal 0.0-1.1 Immature Grans 0.2 % Normal 0.0-5.0 NRBC % 0.0 /100WBC < 10/ 100 WBC Neut# 2.26 K/uL Normal 1.8-7.0 Lymph # 1.50 K/uL Normal 1.0-4.0 [place] # 0.29 K/uL Normal 0.0-0.8 Eos # 0.21 K/uL Normal 0.0-0.5 Baso # 0.04 K/uL Normal 0.0-0.1 Immature Grans Absolute 0.01 K/uL NRBC # 0.00 K/uL Glycohemoglobin 08/17/2018 [facility] Glycohemoglobin 7.2 % High 4.2-6.3 [address] (A1c) [place] [address] [phone] eAG 160 mg/dL Laboratory test 07/20/2018 [facility] Thyroid Stim 4.21 High 0.30-4.20 [address] Hormone uIU/[place] [address] [phone] Free T4 0.90 ng/dL Normal 0.76-1.46 CBS W/Automated 07/20/2018 [facility] White 4.0 K/uL Normal 3.4-10.[address] [place] [address] Count [phone] Red Blood Count 4.45 M/uL Normal 4.20-5.80 [...] 33.0-73.0 Lymph % 35.8 % Normal 20.0-42.0 [place] % 6.8 % Normal 0.0-10.0 Eo% 4.3 % Normal 0.0-6.6 Bas% 1.3 % High 0.0-1.1 Immature Grans 0.5 % Normal 0.0-5.0 NRBC % 0.0 /100WBC < 10/ 100 WBC Neut# 2.06 K/uL Normal 1.8-7.0 Lymph # 1.43 K/uL Normal 1.0-4.0 [place] # 0.27 K/uL Normal 0.0-0.8 Eos # 0.17 K/uL Normal 0.0-0.5 Baso # 0.05 K/uL Normal 0.0-0.1 Immature Grans Absolute 0.02 K/uL NRBC # 0.00 K/uL Comprehensive 07/20/2018 [facility] Glucose 160 mg/ dL High 74-106 Metabolic Panel [address] [place] [address] [phone] BUN 27 mg/dL High 7-18 Creatinine 1.1 [...] Phosphatase 44 U/L Low 45-117 Glycohemoglobin 07/20/2018 [facility] Glycohemoglobin 7.4 % High 4.2-6.3 [address] (A1c) [place] [address] [phone] eAG 166 mg/dL Laboratory test 07/20/2018 [facility] Magnesium 1.3 mg/dL Low 1.8-2.[address] [place] [address] [phone] 1 Shirrer: [id number] 2 I34.0, D64.9, E78.5, E61.2, 03.9 3 [...] aggressive treatment of glycemia. The [place] Diabetes Association recommends that a primary goal of therapy should be a HbA1c of <7% and that physicians should re-evaluate the treatment regimen in patients with HbA1c values consistently >8%. [employer] 2000 methodology. Values obtained with different assay methods or kits cannot be used interchangeably. Results cannot be interpreted as absolute evidence of the presence or absence of malignant disease. Performed at: [facility] [id number] Actuarial Consultant: Jannie Luna MD, Phone: [phone] Performed at: [facility] [address] [id number] Actuarial Consultant: Ivan Rodriguez MD, Phone: [phone] Vitamin D deficiency has been defined by the [place] of Medicine and an Endocrine Society practice guideline as a level of serum 25-OH vitamin D less than 20 ng/mL (1,2). The Endocrine Society went on to further define vitamin D insufficiency as a level between 21 and 29 ng/mL (2). 1. IOM (Cardale of Medicine). 2010. Dietary reference intakes for calcium and D. [place]: The National Academies Press. 2. Kathryn MF, Sheri NC, Oly VILLARREAL, et al. Evaluation, treatment, and prevention of vitamin D deficiency: an Endocrine Society clinical practice guideline. JCEM. 2010; 96(7):1911-30. Performed at: [facility] [id number] Actuarial Consultant: Jannie Luna MD, Phone: [phone] NO DX 12 Reference Range: Pubertal Children and Adults: 0.8 - 1.7 Performed at: [facility] [address] [place] [id number] Actuarial Consultant: Ron Pastor MD, Phone: [phone] Vitamin D deficiency has been defined by the [place] of Medicine and an Endocrine Society practice guideline as a level of serum 25-OH vitamin D less than 20 ng/mL (1,2). The Endocrine Society went on to further define vitamin D insufficiency as a level between 21 and 29 ng/mL (2). 1. IOM (Card[place] of Medicine). 2010. Dietary reference intakes for calcium and D. [place]: The National Academies Press. 2. Kathryn MF, Sheri HERNANDEZ, Oly VILLARREAL, et al. Evaluation, treatment, and prevention of vitamin D deficiency: an Endocrine Society clinical practice guideline. JCEM. 2010; 96(7):1911-30. Performed at: - [facility] [address] [id number] Actuarial Consultant: Jannie Luna MD, Phone: [phone] INFCE Result Units: s/co ratio Negative: < 0.8 Indeterminate: 0.8 - 0.9 Positive: > 0.9 The CDC recommends that a positive HCV antibody result be followed up with a HCV Nucleic Acid Amplification test (652947). Performed at: [facility] [id number] Actuarial Consultant: Jannie Luna MD, Phone: [phone] Reference Guidelines*: Desirable: ........... < 200 [...] aggressive treatment of glycemia. The [place] Diabetes Association recommends that a primary goal [...] aggressive treatment of glycemia. The [place] Diabetes Association recommends that a primary goal of therapy should be a HbA1c of <7% and that physicians should re-evaluate the treatment regimen in patients with HbA1c values consistently >8%. Procedures Date Code Description Status 07/27/2018 65037 Spirometry Graphic Record/Max Voluntary Vent Completed 10/29/2016 571821755 Bone Mineral Density Test Completed 09/23/2010 96860726 Colonoscopy Completed Medical Devices Description No Information Available Encounters Type Date Location Provider Dx Diagnosis Office Visit 11/28/2018 11:00a Main Office Rocco [...] Anemia, unspecified I25.10 [facility] heart disease [facility] [place] [place] coronary artery w/o ang pctrs E03.9 Hypothyroidism, [...] Anemia, unspecified I25.[address] [facility] [place] [place] coronary artery w/o ang pctrs E11.65 Type [...] insufficiency F02.80 Dementia in oth diseases classd elsaleksandrar w/o behavrl disturb K21.9 Gastro-esophageal reflux disease [...] Anemia, unspecified I25.10 [address] disease [facility] [place] [place] coronary artery w/o ang pctrs E11.65 Type [...] Anemia, unspecified I25.[address] [facility] [place] [place] coronary artery w/o ang pctrs I49.1 Atrial [...] Magnesium deficiency Assessments Date Code Description Provider 11/28/2018 E61.2 Magnesium deficiency [place], Rocco 11/28/2018 J44.9 Chronic obstructive pulmonary disease, unspecified Gauss, Rocco 11/28/2018 I65.23 Occlusion and stenosis of bilateral carotid arteries Gauss , Rocco 11/28/2018 K58.0 Irritable bowel syndrome with diarrhea [place], Rocco 11/28/2018 I34.0 Nonrheumatic mitral (valve) insufficiency Gauss, Rocco 11/28/2018 F02.80 Dementia in other diseases classified elsewhere without Gauss, Rocco behavior 11/28/2018 K21.9 Gastro-esophageal reflux disease without esophagitis [facility] , Rocco 11/28/2018 G47.33 Obstructive sleep apnea (adult) (pediatric) [facility], Rocco 11/28/2018 D64.9 Anemia, unspecified [place], Rocco 11/28/2018 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 PrKamran frankl without angina pectoris 11/28/2018 E03.9 Hypothyroidism, unspecified Gauss, Rocco 11/28/2018 E55.9 Vitamin D deficiency, unspecified Prmonika, Rocco 11/28/2018 I11.9 [facility] 11/28/2018 R73.01 Impaired fasting glucose [facility], Rocco 11/09/2018 E61.2 Magnesium deficiency [facility], Rocco 11/09/2018 J44.9 Chronic obstructive pulmonary disease, unspecified Gauss, Rocco 11/09/2018 I65.23 Occlusion and stenosis of bilateral carotid arteries [place] , Rocco 11/09/2018 K58.0 Irritable bowel syndrome with diarrhea [facility], Rocco 11/09/2018 I34.0 Nonrheumatic mitral (valve) insufficiency [facility], Rocco 11/09/2018 F02.80 Dementia in other diseases classified elsewhere without Gauss, Rocco behavior 11/09/2018 K21.9 Gastro-esophageal reflux disease without esophagitis Gauss , Rocco 11/09/2018 G47.33 Obstructive sleep apnea (adult) (pediatric) Gauss, Rocco 11/09/2018 R19.7 Diarrhea, unspecified Gauss, [facility] 11/09/2018 D64.9 Anemia, unspecified Gauss, [facility] 11/09/2018 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 [facility], Rocco without angina pectoris 11/09/2018 E11.65 Type 2 diabetes mellitus with hyperglycemia Gauss, Rocco 11/09/2018 E03.9 Hypothyroidism, unspecified Gauss, Rocco 11/09/2018 E78.5 Hyperlipidemia, unspecified Gauss, [facility] 11/09/2018 N40.0 Benign prostatic hyperplasia without lower urinary [facility], Rocco tract symptoms 11/09/2018 K73.9 Chronic hepatitis, unspecified Gauss, [facility] 11/09/2018 E55.9 Vitamin D deficiency, unspecified [facility], [facility] 10/11/2018 E61.2 Magnesium deficiency Gauss, [facility] 10/11/2018 J44.9 Chronic obstructive pulmonary disease, unspecified Gauss, [facility] 10/11/2018 I65.23 Occlusion and stenosis of bilateral carotid arteries Gauss , [facility] 10/11/2018 K58.0 Irritable bowel syndrome with diarrhea [facility], [facility] 10/11/2018 I34.0 Nonrheumatic mitral (valve) insufficiency Gauss, [facility] 10/11/2018 F02.80 Dementia in other diseases classified elsewhere without [facility], Rocco behaviora 10/11/2018 K21.9 Gastro-esophageal reflux disease without esophagitis Gauss , [facility] 10/11/2018 G47.33 Obstructive sleep apnea (adult) (pediatric) Gauss, [facility] 10/11/2018 Z23 Encounter for immunization Gauss, [facility] 09/20/2018 E61.2 Magnesium deficiency Gauss, [facility] 09/20/2018 J44.9 Chronic obstructive pulmonary disease, unspecified Gauss, [facility] 09/20/2018 I65.23 Occlusion and stenosis of bilateral carotid arteries Gauss , [facility] 09/20/2018 K58.0 Irritable bowel syndrome with diarrhea Gauss, [facility] 09/20/2018 I34.0 Nonrheumatic mitral (valve) insufficiency Gauss, [facility] 09/20/2018 F02.80 Dementia in other diseases classified [...] Gastro-esophageal reflux disease without esophagitis Gauss , [facility] 08/23/2018 G47.33 Obstructive sleep apnea (adult) (pediatric) Gauss, [facility] 08/23/2018 R19.7 Diarrhea, unspecified Gauss, [facility] 08/23/2018 D64.9 Anemia, unspecified Gauss, [facility] 08/23/2018 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 Kamran Ventural without angina pectoris 08/23/2018 E11.65 Type 2 diabetes mellitus with hyperglycemia [facility] 08/23/2018 E03.9 Hypothyroidism, unspecified Gauss, [facility] 07/28/2018 E61.2 Magnesium deficiency Gauss, [facility] 07/28/2018 J44.9 Chronic obstructive pulmonary disease, unspecified Gauss, [facility] 07/28/2018 I65.23 Occlusion and stenosis of bilateral carotid arteries Gauss , [place] 07/28/2018 K58.0 Irritable bowel syndrome with diarrhea Gauss, [facility] 07/28/2018 I34.0 Nonrheumatic mitral (valve) insufficiency Gauss, [facility] 07/28/2018 F02.80 Dementia in other diseases classified elsewhere without Gauss, Rocco behaviora 07/28/2018 E03.9 Hypothyroidism, unspecified Gauss, [facility] 07/28/2018 K21.9 Gastro-esophageal reflux disease without esophagitis Gauss , [place]occo 07/28/2018 I11.9 Hypertensive heart disease without heart failure Gauss, Rocco 07/28/2018 E78.5 Hyperlipidemia, unspecified Gauss, [place] 07/28/2018 N40.0 Benign prostatic hyperplasia without lower urinary Gauss, Rocco tract symptoms 07/28/2018 G47.33 Obstructive sleep apnea (adult) (pediatric) Gauss, [place] 07/28/2018 R19.7 Diarrhea, unspecified Gauss, [facility] 07/28/2018 D64.9 Anemia, unspecified Gauss, [facility] 07/28/2018 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 [facility], [place] without angina pectoris 07/28/2018 I49.1 Atrial premature depolarization Gauss, [facility] 07/28/2018 E11.9 Type 2 diabetes mellitus without complications Gauss, [facility] 07/28/2018 K73.9 Chronic hepatitis, unspecified Gauss, [facility] 07/28/2018 E55.9 Vitamin D deficiency, unspecified [facility], [facility] 07/27/2018 R06.02 Shortness of breath [facility], [facility] 07/27/2018 J44.9 Chronic obstructive pulmonary disease, unspecified Gauss, [facility] 07/27/2018 R05 Cough Gauss, [facility] 06/21/2018 K58.0 Irritable bowel syndrome with diarrhea [facility], [facility] 06/21/2018 J44.9 Chronic obstructive pulmonary disease, unspecified [facility], [facility] 06/21/2018 I65.23 Occlusion and stenosis of bilateral carotid arteries [facility] , [facility] 06/21/2018 I34.0 Nonrheumatic mitral (valve) insufficiency [facility], [facility] 06/21/2018 F02.80 Dementia in other diseases classified elsewhere without Gauss, Rocco behaviora 06/21/2018 K21.9 Gastro-esophageal reflux disease without esophagitis [facility] , [facility] 06/21/2018 E11.9 Type 2 diabetes mellitus without complications Gauss, [facility] 06/21/2018 E66.09 Other obesity due to excess calories [facility], [facility] 06/21/2018 E03.9 Hypothyroidism, unspecified Gauss, [facility] 06/21/2018 N40.0 Benign prostatic hyperplasia without lower urinary Gauss, Rocco tract symptoms 06/21/2018 G47.33 Obstructive sleep apnea (adult) (pediatric) Gauss, Rocco 06/21/2018 I11.9 Hypertensive heart disease without heart failure Gauss, [facility] 06/21/2018 E61.2 Magnesium deficiency Rocco Ventura Plan of Treatment Future Appointment(s):01/19/2019 8:00 am - Nurse at Main Ekwspb8301/24/2019 11: 15 am - Rocco Ventura at Main Dnioyj8602/22/2019 8:00 am - Nurse at Main [id number] 10:00 am - Rocco Ventura at Main Office Functional Status Description No Information Available Mental Status Description No Information Available Referrals Description No Information Available
--- OUTSIDE RECORDS SUMMARY | 2019-02-13 12:27 | XMS REPORT | Continuity of Care Document ---
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 07/28/2018 10mg day Tablets Vitamin B-12 1 by mouth every 90tabs [facility] 02/01/2018 Natural day 500mcg Tablets Magnesium one tablet twice 180caps E83.40 [facility] 11/15/2017 500mg Capsules a day Vitamin D3 1 by mouth every 90caps [facility] 06/04/2015 5000Unit day Capsules Cpap Mask And Supples as directed Lorenzo Rocco 05/31/2014 Tenmile 3 2 by mouth every 180caps [facility] 04/18/2014 1000mg Capsules day Cpap Machine Please dispense Kamran Ventural 05/04/2012 a mask, hose and filter. Dx Sleep Apnea Flomax 1 by mouth every 90caps [facility] 09/16/2010 0.4mg Capsules day Bystolic 1 by mouth every 90tabs [facility] 04/26/2009 5mg Tablets day Lipitor 1 by mouth every 90tabs [facility] 04/26/2009 40mg Tablets day Tricor 1 by mouth every 90tabs [facility] 04/26/2009 145mg Tablets day Altace 1qd - take one 90caps [facility] 04/26/2009 10mg Capsules capsule by mouth every day Dexilant 1 by mouth every 90caps [facility] 60mg C[address] day Viberzi 1 by mouth twice 180tabs [facility] 100mg Tablets a day Betamethasone apply to Unknown Dipropionate affected areas 0.05% Cream twice daily Clotrimazole/Betametha apply to Unknown sone Dipropionate affected area 1-0.05% three times a Cream day Immunizations CPT Code Status Date Vaccine Lot # [id number] Given 10/11/2018 Influenza Virus (Quadrivalent)Splitvirus 3 [id number] Years Of Age And Older 80375 Given 10/11/2018 Influenza Virus Vaccine, Quadrivalent, Split, Preservative Free 26120 Given 11/15/2017 Tetanus,Diphtheria,Adut/Adol Pertussis [id number] Q2035 Given 11/08/2017 Influenza Virus (Quadrivalent)Splitvirus 3 Years Of Age And Older Q2035 Given 10/30/2016 Influenza Virus (Quadrivalent)Splitvirus 3 Years Of Age And Older 69617 Given 09/03/2016 Pneumococcal Conjugate Vaccine 13 Valent For [id number] Intramuscular Use Q2037 Given 11/11/2015 Influenza Vaccine (Fluvirin) 4 Years Of Age Or [id number] Older Q2035 Given 10/16/2014 Influenza Virus (Quadrivalent)Splitvirus 3 [id number] Years Of Age And Older 67959 Given 01/02/2014 Pneumovax Polyvalent Inj Im Q2037 Given 12/05/2013 Influenza Vaccine (Fluvirin) 3 Years Of Age Or Older Q2035 Given 11/16/2012 Influenza Virus (Quadrivalent)Splitvirus 3 Years Of Age And Older Q2035 Given 11/16/2012 Influenza Virus (Quadrivalent)Splitvirus 3 [id number] Years Of Age And Older Q2037 Given 12/01/2011 Influenza Vaccine (Fluvirin) 4 Years Of Age Or [id number] Older Q2036 Given 12/30/2010 Flulaval [id number] 88881 Given 12/30/2010 Influenza Vaccine 19000 Given 05/12/2010 Tetanus Shot 61149 Given 11/05/2009 Influenza Vaccine [id number] 34867 Given 11/15/2008 [place] [address] Given Unknown Zostavax Vital Signs Date Vital Result Comment 01/24/2019 12:13pm BP Systolic 100 mmHg BP Diastolic 58 mmHg Heart Rate 61 /min Height 64 inches 5'4" Weight 212.00 lb BMI (Body Mass Index) 36.4 kg/m2 O2 % BldC Oximetry 93 % 12/21/2018 11:19am BP Systolic 122 mmHg BP Diastolic 80 mmHg Heart Rate 64 /min Respiratory Rate 16 /min Weight 211.00 lb Results Test Acquired Date Facility Test Result H/L Range Note Rapid Influenza 12/04/2018 [facility] Influenza A NEGATIVE Negative 1 A & B Molecular [address] [place] [address] [phone] Influenza B Molecular NEGATIVE Negative TSH Reflex 11/23/2018 [facility] Thyroid Stim 0.77 uIU/mL Normal 0.30-4.20 2 FT4 And/Or [address] Hormone FT3 [place] [address] [phone] Reflex add FT3? N Reflex add FT4? N LDL Cholesterol 11/23/2018 [facility] Cholesterol 172 mg/dL <200 [address] [place] [address] [phone] Triglycerides 191 mg/dL High <150 4 HDL Cholesterol 35 mg/dL Low >40 5 LDL-Cholesterol 99 mg/dL < 100 6 Reflex add FT3? N Reflex add FT4? N Magnesium 11/23/2018 [facility] Magnesium 1.8 mg/dL Normal 1.8-2.[address] [place] [address] [phone] Reflex add FT3? N Reflex add FT4? N Comprehensive 11/23/2018 [facility] Glucose 135 mg/ dL High 74-106 Metabolic Panel [address] [place] [address] [phone] BUN 33 mg/dL High 7-18 Creatinine 1.7 [...] N Reflex add FT4? N Glycohemoglobin 11/23/2018 [facility] Glycohemoglobin 6.5 % High 4.2-6.3 [address] (A1c) [place], [place] [id number] [phone] eAG 140 mg/dL Laboratory test 11/23/2018 [facility] Glycohemoglobin A1c <pending> finding [address] [place], [place] [id number] [phone] TSH Reflex FT4 And/Or FT3 <pending> CBS W/Automated 11/23/2018 [facility] White 4.5 K/uL Normal 3.4-10.[address] [place] [address] Count [phone] Red Blood Count 4.46 M/uL Normal 4.20-5.80 [...] 33.0-73.0 Lymph % 34.2 % Normal 20.0-42.0 [place] % 6.3 % Normal 0.0-10.0 Eo% 3.8 % Normal 0.0-6.6 Bas% 1.3 % High 0.0-1.1 Immature Grans 0.2 % Normal 0.0-5.0 NRBC % 0.0 /100WBC < 10/ 100 WBC Neut# 2.43 K/uL Normal 1.8-7.0 Lymph # 1.53 K/uL Normal 1.0-4.0 [place] # 0.28 K/uL Normal 0.0-0.8 Eos # 0.17 K/uL Normal 0.0-0.5 Baso # 0.06 K/uL Normal 0.0-0.1 Immature Grans Absolute 0.01 K/uL NRBC # 0.00 K/uL Direct LDL 11/23/2018 [facility] LDL Chol. 97 mg/dL 0-[address] (Direct) [place] [address] [phone] Laboratory test 11/23/2018 [facility] Prostatic Acid 1.1 ng/mL 0.0-3.[address] Phos,[place] [address] [phone] Vitamin D,25-Hydroxy 44.9 ng/mL 30.0-100.0 10 Laboratory 11/23/2018 [facility] Magnesium <pending> test finding [address] [place] [address] [phone] Laboratory 08/17/2018 [facility] Free T4 1.0 ng/dL . 11, test finding [address] Dialysis/Mass [address] [place] [address] Lvlmg [phone] Laboratory 08/17/2018 [facility] Vitamin 37.4 ng/mL 30.0-100.0 13 test finding [address] D,25[place] [address] [phone] Hepatitis 08/17/2018 [facility] Hepatitis A Negative Negative Evaluation [address] [place] [place] [address] [phone] HBsAg Screen [Ref Lab] Negative Negative Hepatitis B Core IgM Negative Negative HCV Signal/Cutoff ratio < 0.1 s/corat 0.0-0.9 14 Laboratory test 08/17/2018 [facility] Thyroid Stim 4.89 uIU/mL High 0.30-4.[address] [place] [address] [phone] Free T4 0.93 ng/dL Normal 0.76-1.46 LDL Cholesterol 08/17/2018 [facility] Cholesterol 180 mg/dL <200 [address] [place], [place] [address] [phone] Triglycerides 330 mg/dL High <150 16 HDL Cholesterol 31 mg/dL Low >40 17 LDL-Cholesterol 83 mg/dL < 100 18 Laboratory test 08/17/2018 [facility] Magnesium 1.6 mg/dL Low 1.8-2.[address] [place], [place] [address] [phone] Comprehensive 08/17/2018 [facility] Glucose 147 mg/ dL High 74-106 Metabolic Panel [address] [place], [place] [address] [phone] BUN 36 mg/dL High 7-18 Creatinine 1.3 [...] 40 U/L Low 45-117 CBS W/Automated 08/17/2018 [facility] White 4.3 K/uL Normal 3.4-10.[address] [place] [address] Count [phone] Red Blood Count 4.40 M/uL Normal 4.20-5.80 [...] 33.0-73.0 Lymph % 34.8 % Normal 20.0-42.0 [place] % 6.7 % Normal 0.0-10.0 Eo% 4.9 % Normal 0.0-6.6 Bas% 0.9 % Normal 0.0-1.1 Immature Grans 0.2 % Normal 0.0-5.0 NRBC % 0.0 /100WBC < 10/ 100 WBC Neut# 2.26 K/uL Normal 1.8-7.0 Lymph # 1.50 K/uL Normal 1.0-4.0 [place] # 0.29 K/uL Normal 0.0-0.8 Eos # 0.21 K/uL Normal 0.0-0.5 Baso # 0.04 K/uL Normal 0.0-0.1 Immature Grans Absolute 0.01 K/uL NRBC # 0.00 K/uL Glycohemoglobin 08/17/2018 [facility] Glycohemoglobin 7.2 % High 4.2-6.3 [address] (A1c) [place] [address] [phone] eAG 160 mg/dL 1 Population Health Manager: [id number] I34.0, D64.9, E78.5, E61.2, 03.9 3 [...] for more aggressive treatment of glycemia. The [place] [employer] recommends that a primary goal of therapy should be a HbA1c of <7% and that physicians should re-evaluate the treatment regimen in patients with HbA1c values consistently >8%. 9 Stickyte 2000 methodology. Values obtained with different assay methods or kits cannot be used interchangeably. Results cannot be interpreted as absolute evidence of the presence or absence of malignant disease. Performed at: - [facility] [id number] Pest Controller: Jannie Luna MD, Phone: [phone] Performed at: - [facility] [id number] Pest Controller: Ivan Rodriguez MD, Phone: [phone] 10 Vitamin D deficiency has been defined by the [place] of [employer] and an Endocrine Society practice guideline as a level of serum 25-OH vitamin D less than 20 ng/mL (1,2). The Endocrine Society went on to further define vitamin D insufficiency as a level between 21 and 29 ng/mL (2). 1. IOM ([place] of [employer]). 2010. Dietary reference intakes for calcium and D. [place]: The National Academies Press. 2. Kathryn MF, Sheri HERNANDEZ, Oly VILLARREAL, et al. Evaluation, treatment, and prevention of vitamin D deficiency: an Endocrine Society clinical practice guideline. JCEM. 2010; 96(7):1911-30. Performed at: [facility] [address] [id number] Pest Controller: Jannie Luna MD, Phone: [phone] 11 NO DX 12 Reference Range: Pubertal Children and Adults: 0.8 - 1.7 Performed at: [facility] [address] [place] [id number] Pest Controller: Ron Pastor MD, Phone: [phone] 13 Vitamin D deficiency has been defined by the [place] of [employer] and an Endocrine Society practice guideline as a level of serum 25-OH vitamin D less than 20 ng/mL (1,2). The Endocrine Society went on to further define vitamin D insufficiency as a level between 21 and 29 ng/mL (2). 1. IOM ([place] of [employer]). 2010. Dietary reference intakes for calcium and D. [place]: The National Academies Press. 2. Kathryn MF, Sheri HERNANDEZ, Oly VILLARREAL, et al. Evaluation, treatment, and prevention of vitamin D deficiency: an Endocrine Society clinical practice guideline. JCEM. 2010; 96(7):1911-30. Performed at: [facility] [address] [id number] Pest Controller: Jannie Luna MD, Phone: [phone] INFCE Result Units: s/co ratio Negative: < 0.8 Indeterminate: 0.8 - 0.9 Positive: > 0.9 The CDC recommends that a positive HCV antibody result be followed up with a HCV Nucleic Acid Amplification test (269913). Performed at: [facility] [id number] Pest Controller: Jannie Luna MD, Phone: [phone] 15 Reference Guidelines*: Desirable: ........... < 200 [...] for more aggressive treatment of glycemia. The [place] Diabetes Association recommends that a primary goal of therapy should be a HbA1c of <7% and that physicians should re-evaluate the treatment regimen in patients with HbA1c values consistently >8%. Procedures Date Code Description Status 07/27/2018 12220 Spirometry Graphic Record/Max Voluntary Vent Completed 10/29/2016 818609731 Bone Mineral Density Test Completed 09/23/2010 93753563 Colonoscopy Completed Medical Devices Description No Information [...] Anemia, unspecified I25.10 Athscl heart disease of [place] coronary artery w/o ang pctrs E03.9 Hypothyroidism, [...] Anemia, unspecified I25.10 Athscl heart disease of [place] coronary artery w/o ang pctrs E03.9 Hypothyroidism, [...] Anemia, unspecified I25.10 Athscl heart disease of [place] coronary artery w/o ang pctrs E11.65 Type [...] Anemia, unspecified I25.10 Athscl heart disease of [place] coronary artery w/o ang pctrs E11.65 Type [...] Anemia, unspecified I25.10 Athscl heart disease of [place] coronary artery w/o ang pctrs I49.1 Atrial premature depolarization E11.9 Type 2 diabetes mellitus without complications K73.9 Chronic hepatitis, unspecified E55.9 Vitamin D deficiency, unspecified Assessments Date Code Description Provider 12/21/2018 E61.2 Magnesium deficiency Gauss, Rocco 12/21/2018 J44.9 Chronic obstructive pulmonary disease, unspecified Gauss, Rocco 12/21/2018 I65.23 Occlusion and stenosis of bilateral carotid arteries Gauss , Rocco 12/21/2018 K58.0 Irritable bowel syndrome with diarrhea Gauss, Rocco 12/21/2018 I34.0 Nonrheumatic mitral (valve) insufficiency Gauss, Rocco 12/21/2018 F02.80 Dementia in other diseases classified elsewhere without Gauss, Rocco behaviora 12/21/2018 K21.9 Gastro-esophageal reflux disease without esophagitis Gauss , Rocco 12/21/2018 G47.33 Obstructive sleep apnea (adult) (pediatric) Gauss, Rocco 12/21/2018 D64.9 Anemia, unspecified Gauss, Rocco 12/21/2018 I25.10 Atherosclerotic heart disease of [place] coronary artery Gauss, Rocco without angina pectoris 12/21/2018 E03.9 Hypothyroidism, unspecified Gauss, Rocco 12/21/2018 E55.9 Vitamin D deficiency, unspecified Gauss, Rocco 12/21/2018 I11.9 Hypertensive heart disease without heart failure Gauss, Rocco 12/21/2018 E78.5 Hyperlipidemia, unspecified Gauss, Rocco 12/21/2018 N40.0 Benign prostatic hyperplasia without lower urinary Gauss, Rocco tract symptoms 12/21/2018 K73.9 Chronic hepatitis, unspecified Gauss, Rocco 12/21/2018 I49.1 Atrial premature depolarization Gauss, Rocco 12/21/2018 E11.9 Type 2 diabetes mellitus without complications Lorenzo, Rocco 12/21/2018 E66.09 Other obesity due to excess calories Lorenzo, Rocco 11/28/2018 E61.2 Magnesium deficiency Lorenzo, [facility] 11/28/2018 J44.9 Chronic obstructive pulmonary disease, unspecified Lorenzo, Rocco 11/28/2018 I65.23 Occlusion and stenosis of bilateral carotid arteries Lorenzo , Rocco 11/28/2018 K58.0 Irritable bowel syndrome with diarrhea Lorenzo, [facility] 11/28/2018 I34.0 Nonrheumatic mitral (valve) insufficiency Pierorust, [facility] 11/28/2018 F02.80 Dementia in other diseases classified elsewhere without [facility] 11/28/2018 K21.9 Gastro-esophageal reflux disease without esophagitis Lorenzo , [facility] 11/28/2018 G47.33 Obstructive sleep ap[facility] (adult) [facility] 11/28/2018 D64.9 Anemia, unspecified Lorenzo, [facility] 11/28/2018 I25.10 Atherosclerotic heart disease of [place] coronary artery Kamran Ventural without angina pectoris 11/28/2018 E03.9 Hypothyroidism, unspecified Lorenzo, [facility] 11/28/2018 E55.9 Vitamin D deficiency, unspecified Lorenoz, [facility] 11/28/2018 I11.9 Hypertensive heart disease without heart failure Lorenzo, [facility] 11/28/2018 R73.01 Impaired fasting glucose Lorenzo, Rocco 11/09/2018 E61.2 Magnesium deficiency Lorenzo, Rocco 11/09/2018 J44.9 Chronic obstructive pulmonary disease, unspecified Pierorust, [facility] 11/09/2018 I65.23 Occlusion and stenosis of bilateral carotid arteries Lorenzo , Rocco 11/09/2018 K58.0 Irritable bowel syndrome with diarrhea [facility], [facility] 11/09/2018 I34.0 Nonrheumatic mitral (valve) insufficiency [facility], [facility] 11/09/2018 F02.80 Dementia in other diseases classified elsewhere without GaKamran frankl behavior 11/09/2018 K21.9 Gastro-esophageal reflux disease without esophagitis Prmonika , Rocco 11/09/2018 G47.33 Obstructive sleep apnea (adult) (pediatric) [place], [facility] 11/09/2018 R19.7 Diarrhea, unspecified Gauss, Rocco 11/09/2018 D64.9 Anemia, unspecified Gauss, Rocco 11/09/2018 I25.10 Atherosclerotic heart disease of [place] coronary artery Kamran Ventural without angina pectoris 11/09/2018 E11.65 Type 2 diabetes mellitus with hyperglycemia Lorenzo, Rocco 11/09/2018 E03.9 Hypothyroidism, unspecified Gauss, Rocco 11/09/2018 E78.5 Hyperlipidemia, unspecified Gauss, Rocco 11/09/2018 N40.0 Benign prostatic hyperplasia without lower urinary Kamran Ventural tract symptoms 11/09/2018 K73.9 Chronic hepatitis, unspecified Gauss, Rocco 11/09/2018 E55.9 Vitamin D deficiency, unspecified Gauss, Rocco 10/11/2018 E61.2 Magnesium deficiency Pierouss, Rocco 10/11/2018 J44.9 Chronic obstructive pulmonary disease, unspecified Gauss, Rocco 10/11/2018 I65.23 Occlusion and stenosis of bilateral carotid arteries Gauss , Rocco 10/11/2018 K58.0 Irritable bowel syndrome with diarrhea [place], Rocco 10/11/2018 I34.0 Nonrheumatic mitral (valve) insufficiency Gauss, Rocco 10/11/2018 F02.80 Dementia in other diseases classified elsewhere without Gauss, Rocco behaviora 10/11/2018 K21.9 Gastro-esophageal reflux disease without esophagitis Lorenzo , Rocco 10/11/2018 G47.33 Obstructive sleep apnea (adult) (pediatric) Lorenzo, Rocco 10/11/2018 Z23 Encounter for immunization Lorenzo, Rocco 09/20/2018 E61.2 Magnesium deficiency Lorenzo, Rocco 09/20/2018 J44.9 Chronic obstructive pulmonary disease, unspecified Gauss, Rocco 09/20/2018 I65.23 Occlusion and stenosis of bilateral carotid arteries Gauss , Rocco 09/20/2018 K58.0 Irritable bowel syndrome with diarrhea Pierouss, Rocco 09/20/2018 I34.0 Nonrheumatic mitral (valve) insufficiency [...] Rocco 08/23/2018 I25.10 Atherosclerotic heart disease of [place] coronary artery Kamran Ventural without angina pectoris [...] 07/28/2018 G47.33 Obstructive sleep apnea (adult) (pediatric) Lorenzo Rocco 07/28/2018 R19.7 Diarrhea, unspecified Lorenzo Rocco 07/28/2018 D64.9 Anemia, unspecified Lorenzo Rocco 07/28/2018 I25.10 Atherosclerotic heart disease of [place] coronary artery Rocco Ventura without angina pectoris 07/28/2018 I49.1 Atrial premature depolarization Lorenzo Rocco 07/28/2018 E11.9 Type 2 diabetes mellitus without complications Rocco Ventura 07/28/2018 K73.9 Chronic hepatitis, unspecified Lorenzo Rocco 07/28/2018 E55.9 Vitamin D deficiency, unspecified Rocco Ventura 07/27/2018 R06.02 Shortness of breath Rocco Ventura 07/27/2018 J44.9 Chronic obstructive pulmonary disease, unspecified Rocco Ventura 07/27/2018 R05 Cough Rocco Ventura Plan of Treatment Future Appointment(s):02/22/2019 8:00 am - Nurse at Main [id number]/28/2019 10: 00 am - Rocco Ventura at Main Office Functional Status Description No Information Available Mental Status Description No Information Available Referrals Description No Information Available
--- OUTSIDE RECORDS SUMMARY | 2019-02-13 12:27 | XMS REPORT | Continuity of Care Document ---
:1950 External Reference #:[id number] Author Name Rocco Ventura (transmitted by agent of provider Bailey Adorno) Address [address] [place] [address] Care Team Providers Name Role Phone Rocco Ventura MD - Internal Medicine Care Team Information Bar Examiner Problems Active Problems Provider Date Hyperlipidemia Rocco [...] HCL 1 by mouth every [facility] Vitamin B-12 1 by mouth every 90tabs [facility] 02/01/2018 Natural day 500mcg Tablets Magnesium one tablet twice 180caps E83.40 [facility] 11/15/2017 500mg Capsules a day Vitamin D3 1 by mouth every 90caps [facility] 06/04/2015 5000Unit day Capsules Cpap Mask And Supples as directed Kamran Ventural 05/31/2014 Albers 3 2 by mouth every 180caps [facility] 04/18/2014 1000mg Capsules day Cpap Machine Please dispense Rocco Ventura 05/04/2012 a mask, hose and filter. Dx Sleep Apnea Flomax 1 by mouth every 90caps [facility] 09/16/2010 0.4mg Capsules day Bystolic 1 by mouth every 90tabs [facility] 04/26/2009 5mg Tablets day Lipitor 1 by mouth every 90tabs [facility] 04/26/2009 40mg Tablets day Tricor 1 by mouth every 90tabs [facility] 04/26/2009 145mg Tablets day Altace 1qd - take one 90caps [facility] 04/26/2009 10mg Capsules capsule by mouth every day Dexilant 1 by mouth every 90caps [facility] 60mg Caps[address] day Viberzi 1 by mouth twice 180tabs [facility] 100mg Tablets a day History Medications A & D Cream Apply Twice Daily as Needed 45gm Himonika Rocco 06/21/2018 - Immunizations CPT Code Status Date Vaccine Lot # [id number] Given 10/11/2018 Influenza Virus (Quadrivalent)Splitvirus 3 [id number] Years Of Age And Older 02108 Given 10/11/2018 Influenza Virus Vaccine, Quadrivalent, Split, Preservative Free [id number] Given 11/15/2017 Tetanus,Diphtheria,Adut/Adol Pertussis [id number] Q2035 Given 11/08/2017 Influenza Virus (Quadrivalent)Splitvirus 3 Years Of Age And Older Q2035 Given 10/30/2016 Influenza Virus (Quadrivalent)Splitvirus 3 Years Of Age And Older 45533 Given 09/03/2016 Pneumococcal Conjugate Vaccine 13 Valent For [id number] Intramuscular Use Q2037 Given 11/11/2015 Influenza Vaccine (Fluvirin) 4 Years Of Age Or [id number] Older Q2035 Given 10/16/2014 Influenza Virus (Quadrivalent)Splitvirus 3 [id number] Years Of Age And Older 52260 Given 01/02/2014 Pneumovax Polyvalent Inj Im Q2037 Given 12/05/2013 Influenza Vaccine (Fluvirin) 4 Years Of Age Or Older Q2035 Given 11/16/2012 Influenza Virus (Quadrivalent)Splitvirus 3 Years Of Age And Older Q2035 Given 11/16/2012 Influenza Virus (Quadrivalent)Splitvirus 3 [id number] Years Of Age And Older Q2037 Given 12/01/2011 Influenza Vaccine (Fluvirin) 4 Years Of Age Or [id number] Older Q2036 Given 12/30/2010 Flulaval [id number] 29159 Given 12/30/2010 Influenza Vaccine 24465 Given 05/12/2010 Tetanus Shot 73101 Given 11/05/2009 Influenza Vaccine [id number] 86583 Given 11/15/2008 [place] [address] Given Unknown Zostavax Vital Signs Date Vital [...] Result H/L Range Note Rapid Influenza 12/04/2018 [employer] Influenza A NEGATIVE Negative 1 A & B Molecular [address] Molecular [place], [place] [id number] [phone] Influenza B Molecular NEGATIVE Negative TSH Reflex 11/23/2018 [facility] Thyroid Stim 0.77 uIU/mL Normal 0.30-4.20 2 FT4 And/Or [address] Hormone FT3 [place], [place] [id number] [phone] Reflex add FT3? N Reflex add FT4? N LDL Cholesterol 11/23/2018 [facility] Cholesterol 172 mg/dL <200 [address] [place] [id number] [phone] Triglycerides 191 mg/dL High <150 4 HDL Cholesterol 35 mg/dL Low >40 5 LDL-Cholesterol 99 mg/dL < 100 6 Reflex add FT3? N Reflex add FT4? N Magnesium 11/23/2018 [facility] Magnesium 1.8 mg/dL Normal 1.8-2.[address] [place] [id number] [phone] Reflex add FT3? N Reflex add FT4? N Comprehensive 11/23/2018 [facility] Glucose 135 mg/ dL High 74-106 Metabolic Panel [address] [place] [address] [phone] BUN 33 mg/dL High 7-18 Creatinine 1.7 [...] N Reflex add FT4? N Glycohemoglobin 11/23/2018 [facility] Glycohemoglobin 6.5 % High 4.2-6.[address] (A1c) [place], [place] [id number] [phone] eAG 140 mg/dL Laboratory test 11/23/2018 [facility] Glycohemoglobin A1c <pending> finding [address] [place], [place] [id number] [phone] TSH Reflex FT4 And/Or FT3 <pending> CBS W/Automated 11/23/2018 [facility] White 4.5 K/uL Normal 3.4-10.[address] [place] [place] [address] Count [phone] Red Blood Count 4.46 M/uL Normal 4.20-5.80 [...] 33.0-73.0 Lymph % 34.2 % Normal 20.0-42.0 [place] % 6.3 % Normal 0.0-10.0 Eo% 3.8 % Normal 0.0-6.6 Bas% 1.3 % High 0.0-1.1 Immature Grans 0.2 % Normal 0.0-5.0 NRBC % 0.0 /100WBC < 10/ 100 WBC Neut# 2.43 K/uL Normal 1.8-7.0 Lymph # 1.53 K/uL Normal 1.0-4.0 [place] # 0.28 K/uL Normal 0.0-0.8 Eos # 0.17 K/uL Normal 0.0-0.5 Baso # 0.06 K/uL Normal 0.0-0.1 Immature Grans Absolute 0.01 K/uL NRBC # 0.00 K/uL Direct LDL 11/23/2018 [facility] LDL Chol. 97 mg/dL 0-[address] (Direct) [place] [address] [phone] Laboratory test 11/23/2018 [facility] Prostatic Acid 1.1 ng/mL 0.0-3.5 [address] Phos,[place] [address] [phone] Vitamin D,25-Hydroxy 44.9 ng/mL 30.0-100.0 10 Laboratory 11/23/2018 [facility] Magnesium <pending> test finding [address] [place] [address] [phone] Laboratory 08/17/2018 [facility] Free T4 1.0 ng/dL . 11, test finding [address] Dialysis/Mass [address] [place] [address] Qqlhn [phone] Laboratory 08/17/2018 [facility] Vitamin 37.4 ng/mL 30.0-100.0 13 test finding [address] D,25[place] [address] [phone] Hepatitis 08/17/2018 [facility] Hepatitis A Negative Negative Evaluation [address] [place] [address] [phone] HBsAg Screen [Ref Lab] Negative Negative Hepatitis B Core IgM Negative Negative HCV Signal/Cutoff ratio < 0.1 s/corat 0.0-0.9 14 Laboratory test 08/17/2018 [facility] Thyroid Stim 4.89 uIU/mL High 0.30-4.[address] [place] [address] [phone] Free T4 0.93 ng/dL Normal 0.76-1.46 LDL Cholesterol 08/17/2018 [facility] Cholesterol 180 mg/dL <200 [address] [place] [address] [phone] Triglycerides 330 mg/dL High <150 16 HDL Cholesterol 31 mg/dL Low >40 17 LDL-Cholesterol 83 mg/dL < 100 18 Laboratory test 08/17/2018 [facility] Magnesium 1.6 mg/dL Low 1.8-2.[address] [place] [address] [phone] Comprehensive 08/17/2018 [facility] Glucose 147 mg/ dL High 74-106 Metabolic Panel [address] [place] [address] [phone] BUN 36 mg/dL High 7-18 Creatinine 1.3 [...] 40 U/L Low 45-117 CBS W/Automated 08/17/2018 [facility] White 4.3 K/uL Normal 3.4-10.[address] [place] [place] [address] Count [phone] Red Blood Count 4.40 M/uL Normal 4.20-5.80 [...] 33.0-73.0 Lymph % 34.8 % Normal 20.0-42.0 [place] % 6.7 % Normal 0.0-10.0 Eo% 4.9 % Normal 0.0-6.6 Bas% 0.9 % Normal 0.0-1.1 Immature Grans 0.2 % Normal 0.0-5.0 NRBC % 0.0 /100WBC < 10/ 100 WBC Neut# 2.26 K/uL Normal 1.8-7.0 Lymph # 1.50 K/uL Normal 1.0-4.0 [place] # 0.29 K/uL Normal 0.0-0.8 Eos # 0.21 K/uL Normal 0.0-0.5 Baso # 0.04 K/uL Normal 0.0-0.1 Immature Grans Absolute 0.01 K/uL NRBC # 0.00 K/uL Glycohemoglobin 08/17/2018 [facility] Glycohemoglobin 7.2 % High 4.2-6.3 [address] (A1c) [place], [place] [address] [phone] eAG 160 mg/dL Laboratory test 07/20/2018 [facility] Thyroid Stim 4.21 High 0.30-4.20 [address] Hormone uIU/mL [place], [place] [address] [phone] Free T4 0.90 ng/dL Normal 0.76-1.46 CBS W/Automated 07/20/2018 [facility] White 4.0 K/uL Normal 3.4-10.[address] [place] [place] [address] Count [phone] Red Blood Count 4.45 M/uL Normal 4.20-5.80 [...] 33.0-73.0 Lymph % 35.8 % Normal 20.0-42.0 [place] % 6.8 % Normal 0.0-10.0 Eo% 4.3 % Normal 0.0-6.6 Bas% 1.3 % High 0.0-1.1 Immature Grans 0.5 % Normal 0.0-5.0 NRBC % 0.0 /100WBC < 10/ 100 WBC Neut# 2.06 K/uL Normal 1.8-7.0 Lymph # 1.43 K/uL Normal 1.0-4.0 [place] # 0.27 K/uL Normal 0.0-0.8 Eos # 0.17 K/uL Normal 0.0-0.5 Baso # 0.05 K/uL Normal 0.0-0.1 Immature Grans Absolute 0.02 K/uL NRBC # 0.00 K/uL Comprehensive 07/20/2018 [facility] Glucose 160 mg/ dL High 74-106 Metabolic Panel [address] [place], [place] [address] [phone] BUN 27 mg/dL High 7-18 Creatinine 1.1 [...] Phosphatase 44 U/L Low 45-117 Glycohemoglobin 07/20/2018 [facility] Glycohemoglobin 7.4 % High 4.2-6.3 [address] (A1c) [place] [address] [phone] eAG 166 mg/dL Laboratory test 07/20/2018 [facility] Magnesium 1.3 mg/dL Low 1.8-2.[address] [place] [address] [phone] 1 [employer] Department Supervisor: [id number] I34.0, D64.9, E78.5, E61.2, 03.9 3 [...] for more aggressive treatment of glycemia. The [place] [employer] recommends that a primary goal of therapy should be a HbA1c of <7% and that physicians should re-evaluate the treatment regimen in patients with HbA1c values consistently >8%. 9 SignNow 2000 methodology. Values obtained with different assay methods or kits cannot be used interchangeably. Results cannot be interpreted as absolute evidence of the presence or absence of malignant disease. Performed at: - [facility] [address] [id number] Quality Cloth Tester: Jannie Luna MD, Phone: [phone] Performed at: [facility] [address] [id number] Quality Cloth Tester: Ivan Rodriguez MD, Phone: [phone] Vitamin D deficiency has been defined by the [place] of [employer] and an Endocrine Society practice guideline as a level of serum 25-OH vitamin D less than 20 ng/mL (1,2). The Endocrine Society went on to further define vitamin D insufficiency as a level between 21 and 29 ng/mL (2). 1. IOM ([place] of [employer]). 2010. Dietary reference intakes for calcium and D. [place]: The National Academies Press. 2. Kathryn MF, Sheri NC, Oly VILLARREAL, et al. Evaluation, treatment, and prevention of vitamin D deficiency: an Endocrine Society clinical practice guideline. JCEM. 2010; 96(7):1911-30. Performed at: - [facility] [address] [id number] Quality Cloth Tester: Jannie Luna MD, Phone: [phone] NO DX 12 Reference Range: Pubertal Children and Adults: 0.8 - 1.7 Performed at: [facility] [address] [place] [id number] Quality Cloth Tester: Ron Pastor MD, Phone: [phone] Vitamin D deficiency has been defined by the [place] of [employer] and an Endocrine Society practice guideline as a level of serum 25-OH vitamin D less than 20 ng/mL (1,2). The Endocrine Society went on to further define vitamin D insufficiency as a level between 21 and 29 ng/mL (2). 1. IOM ([place] of [employer]). 2010. Dietary reference intakes for calcium and D. [place]: The National Academies Press. 2. Kathryn MF, Sheri HERNANDEZ, Oly VILLARREAL, et al. Evaluation, treatment, and prevention of vitamin D deficiency: an Endocrine Society clinical practice guideline. JCEM. 2010; 96(7):1911-30. Performed at: - [facility] [id number] Quality Cloth Tester: Jannie Luna MD, Phone: [phone] INFCE Result Units: s/co ratio Negative: < 0.8 Indeterminate: 0.8 - 0.9 Positive: > 0.9 The CDC recommends that a positive HCV antibody result be followed up with a HCV Nucleic Acid Amplification test (017279). Performed at: [facility] [address] [id number] Quality Cloth Tester: Jannie Luna MD, Phone: [phone] Reference Guidelines*: Desirable: ........... < 200 [...] for more aggressive treatment of glycemia. The [place] [employer] Association recommends that a primary goal [...] for more aggressive treatment of glycemia. The [place] [employer] Association recommends that a primary goal of therapy should be a HbA1c of <7% and that physicians should re-evaluate the treatment regimen in patients with HbA1c values consistently >8%. Procedures Date Code Description Status 07/27/2018 29445 Spirometry Graphic Record/Max Voluntary Vent Completed 10/29/2016 798092059 Bone Mineral Density Test Completed 09/23/2010 [id number] Colonoscopy Completed Medical Devices Description No Information [...] Anemia, unspecified I25.10 Athscl heart disease of [place] coronary artery w/o ang pctrs E03.9 Hypothyroidism, [...] Anemia, unspecified I25.10 Athscl heart disease of [place] coronary artery w/o [facility] pctrs E03.9 Hypothyroidism, unspecified E55.9 Vitamin D [...] Anemia, unspecified I25.10 Athscl heart disease of [place] coronary artery w/o ang pctrs E11.65 Type [...] Anemia, unspecified I25.10 Athscl heart disease of [place] coronary artery w/o ang pctrs E11.65 Type [...] Anemia, unspecified I25.10 Athscl heart disease of [place] coronary artery w/o ang pctrs I49.1 Atrial [...] Rocco 12/21/2018 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 Ventural without angina pectoris 12/21/2018 E03.9 Hypothyroidism, unspecified Lorenzo, Rocco 12/21/2018 E55.9 Vitamin D deficiency, unspecified Lorenzo, Rocco 12/21/2018 I11.9 Hypertensive heart disease without heart failure Lorenzo, Rocco 12/21/2018 E78.5 Hyperlipidemia, unspecified Lorenzo, Rocco 12/21/2018 N40.0 Benign prostatic hyperplasia without lower urinary Kamran Ventural tract symptoms 12/21/2018 K73.9 Chronic hepatitis, unspecified Lorenzo, [facility] 12/21/2018 I49.1 Atrial premature depolarization Kamran Ventural 12/21/2018 E11.9 Type 2 diabetes mellitus without complications Kamran Ventural 12/21/2018 E66.09 Other obesity due to excess calories Kamran Ventural 11/28/2018 E61.2 Magnesium deficiency Lorenzo Rocco 11/28/2018 J44.9 Chronic obstructive pulmonary disease, unspecified Lorenzo, [facility] 11/28/2018 I65.23 Occlusion and stenosis of bilateral carotid arteries Lorenzo [facility] 11/28/2018 K58.0 Irritable bowel syndrome with diarrhea Lorenzo, [facility] 11/28/2018 I34.0 Nonrheumatic mitral (valve) insufficiency Lorenzo, [facility] 11/28/2018 F02.80 Dementia in other diseases classified elsewhere without Kamran Ventural behaviora 11/28/2018 K21.9 Gastro-esophageal reflux disease without esophagitis Lorenzo , [facility] 11/28/2018 G47.33 Obstructive sleep apnea (adult) (pediatric) Lorenzo, Rocco 11/28/2018 D64.9 Anemia, unspecified Lorenzo, [facility] 11/28/2018 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 Ventural without angina pectoris 11/28/2018 E03.9 Hypothyroidism, unspecified Lorenzo, Rocco 11/28/2018 E55.9 Vitamin D deficiency, unspecified Lorenzo, Rocco 11/28/2018 I11.9 Hypertensive heart disease without heart failure Kamran Ventural 11/28/2018 R73.01 Impaired fasting glucose Kamran Ventural 11/09/2018 E61.2 Magnesium deficiency [place], [facility] 11/09/2018 J44.9 Chronic obstructive pulmonary disease, unspecified [facility], [facility] 11/09/2018 I65.23 Occlusion and stenosis of bilateral carotid arteries [facility] , [facility] 11/09/2018 K58.0 Irritable bowel syndrome with diarrhea [facility], [facility] 11/09/2018 I34.0 Nonrheumatic mitral (valve) insufficiency [facility], [facility] 11/09/2018 F02.80 Dementia in other diseases classified elsewhere without Gauss, Rocco behaviora 11/09/2018 K21.9 Gastro-esophageal reflux disease without esophagitis [facility] , [facility] 11/09/2018 G47.33 Obstructive sleep apnea (adult) (pediatric) [facility], [facility] 11/09/2018 R19.7 Diarrhea, unspecified [facility], [facility] 11/09/2018 D64.9 Anemia, unspecified [facility], [facility] 11/09/2018 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 Ventural without angina pectoris 11/09/2018 E11.65 Type 2 diabetes mellitus with hyperglycemia [facility], [facility] 11/09/2018 E03.9 Hypothyroidism, unspecified [facility], [facility] 11/09/2018 E78.5 Hyperlipidemia, unspecified [facility], [facility] 11/09/2018 N40.0 Benign prostatic hyperplasia without lower urinary Himonika Rocco tract symptoms 11/09/2018 K73.9 Chronic hepatitis, unspecified [facility] 11/09/2018 E55.9 Vitamin D deficiency, unspecified [facility], [facility] 10/11/2018 E61.2 Magnesium deficiency [facility], [facility] 10/11/2018 J44.9 Chronic obstructive pulmonary disease, unspecified Gauss, [facility] 10/11/2018 I65.23 Occlusion and stenosis of bilateral carotid arteries [facility] , [facility] 10/11/2018 K58.0 Irritable bowel syndrome with diarrhea [facility], [facility] 10/11/2018 I34.0 Nonrheumatic mitral (valve) insufficiency [facility], [facility] 10/11/2018 F02.80 Dementia in other diseases classified elsewhere without Gauss, Rocco behaviora 10/11/2018 K21.9 Gastro-esophageal reflux disease without esophagitis Hi[place] , [facility] 10/11/2018 G47.33 Obstructive sleep apnea [...] Rocco 08/23/2018 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 Ventural without angina pectoris 08/23/2018 E11.65 Type 2 diabetes mellitus with hyperglycemia Gauss, Rocco 08/23/2018 E03.9 Hypothyroidism, unspecified Gauss, Rocco 07/28/2018 E61.2 Magnesium deficiency Gauss, Rocco 07/28/2018 J44.9 Chronic obstructive pulmonary disease, unspecified Gauss, Rocco 07/28/2018 I65.23 Occlusion and stenosis of bilateral carotid arteries Gauss , Rocco 07/28/2018 K58.0 Irritable bowel syndrome with diarrhea Gauss, [facility] 07/28/2018 I34.0 Nonrheumatic mitral (valve) insufficiency Gauss, Rocco 07/28/2018 F02.80 Dementia in other diseases classified elsewhere without Gauss, Rocco behaviora 07/28/2018 K21.9 Gastro-esophageal reflux disease without esophagitis Gauss , Rocco 07/28/2018 E03.9 Hypothyroidism, unspecified Gauss, Rocco 07/28/2018 I11.9 Hypertensive heart disease without heart failure Gauss, Rocco 07/28/2018 E78.5 Hyperlipidemia, unspecified Gauss, [facility] 07/28/2018 N40.0 Benign prostatic hyperplasia without lower urinary Kamran Ventural tract symptoms 07/28/2018 G47.33 Obstructive sleep apnea (adult) (pediatric) [facility], [facility] 07/28/2018 R19.7 Diarrhea, unspecified [facility], [facility] 07/28/2018 D64.9 Anemia, unspecified [facility], [facility] 07/28/2018 I25.10 Atherosclerotic heart disease of [place] coronary artery [facility] Rocco without angina pectoris 07/28/2018 I49.1 Atrial premature depolarization [facility], [facility] 07/28/2018 E11.9 Type 2 diabetes mellitus without complications [facility], [facility] 07/28/2018 K73.9 Chronic hepatitis, unspecified [facility], [facility] 07/28/2018 E55.9 Vitamin D deficiency, unspecified [facility], [facility] 07/27/2018 R06.02 Shortness of breath [facility], Rocco 07/27/2018 J44.9 Chronic obstructive pulmonary disease, unspecified Gauss, [facility] 07/27/2018 R05 Cough Gauss, [facility] 06/21/2018 K58.0 Irritable bowel syndrome with diarrhea Gauss, [facility] 06/21/2018 J44.9 Chronic obstructive pulmonary disease, unspecified Gauss, [facility] 06/21/2018 I65.23 Occlusion and stenosis of bilateral carotid arteries [facility] , [facility] 06/21/2018 I34.0 Nonrheumatic mitral (valve) insufficiency [facility], [facility] 06/21/2018 F02.80 Dementia in other [...] Appointment(s):01/19/2019 8:00 am - Nurse at Main [id number]/24/2019 11: 15 am - Rocco Ventura at Main Mellyj3602/22/2019 8:00 am - Nurse at Main [id number] 10:00 am - Rocco Ventura at Main Office Functional Status Description No Information Available Mental Status Description No Information Available Referrals Description No Information Available
--- OUTSIDE RECORDS SUMMARY | 2019-02-13 12:27 | XMS REPORT | Continuity of Care Document ---
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 Problems Active Problems Provider Date Hyperlipidemia Rocco [...] HCL 1 by mouth every 90tabs F32.9 [facility] 07/28/2018 10mg day Tablets Vitamin B-12 1 by mouth every 90tabs [facility] 02/01/2018 Natural day 500mcg Tablets Magnesium one tablet twice 180caps E83.40 [facility] 11/15/2017 500mg Capsules a day Vitamin D3 1 by mouth every 90caps [facility] 06/04/2015 5000Unit day Capsules Cpap Mask And Supples as directed Lorenzo Rocco 05/31/2014 [place] 3 2 by mouth every 180caps [facility] 04/18/2014 1000mg Capsules day Cpap Machine Please dispense Kamran Ventural 05/04/2012 a mask, hose and filter. Dx Sleep Apnea Flomax 1 by mouth every 90caps [facility] 09/16/2010 0.4mg Capsules day Bystolic 1 by mouth every 90tabs [facility] 04/26/2009 5mg Tablets day Lipitor 1 by mouth every 90tabs [facility] 04/26/2009 40mg Tablets day Tricor 1 by mouth every 90tabs [facility] 04/26/2009 145mg Tablets day Altace 1qd - take one 90caps [facility] 04/26/2009 10mg Capsules capsule by mouth every day Dexilant 1 by mouth every 90caps [facility] 60mg Caps[address] day Viberzi 1 by mouth twice 180tabs [facility] 100mg Tablets a day Betamethasone apply to Unknown Dipropionate affected areas 0.05% Cream twice daily Clotrimazole/Betametha apply to Unknown sone Dipropionate affected area 1-0.05% three times a Cream day Immunizations CPT Code Status Date Vaccine Lot # [id number] Given 10/11/2018 Influenza Virus (Quadrivalent)Splitvirus 3 [id number] Years Of Age And Older 62399 Given 10/11/2018 Influenza Virus Vaccine, Quadrivalent, Split, Preservative Free [id number] Given 11/15/2017 Tetanus,Diphtheria,Adut/Adol Pertussis [id number] Q2035 Given 11/08/2017 Influenza Virus (Quadrivalent)Splitvirus 3 Years Of Age And Older Q2035 Given 10/30/2016 Influenza Virus (Quadrivalent)Splitvirus 3 Years Of Age And Older 93237 Given 09/03/2016 Pneumococcal Conjugate Vaccine 13 Valent For [id number] Intramuscular Use Q2037 Given 11/11/2015 Influenza Vaccine (Fluvirin) 4 Years Of Age Or [id number] Older Q2035 Given 10/16/2014 Influenza Virus (Quadrivalent)Splitvirus 3 [id number] Years Of Age And Older 24508 Given 01/02/2014 Pneumovax Polyvalent Inj Im Q2037 Given 12/05/2013 Influenza Vaccine (Fluvirin) 4 Years Of Age Or Older Q2035 Given 11/16/2012 Influenza Virus (Quadrivalent)Splitvirus 3 Years Of Age And Older Q2035 Given 11/16/2012 Influenza Virus (Quadrivalent)Splitvirus 3 [id number] Years Of Age And Older Q2037 Given 12/01/2011 Influenza Vaccine (Fluvirin) 4 Years Of Age Or [id number] Older Q2036 Given 12/30/2010 Flulaval [id number] 84597 Given 12/30/2010 Influenza Vaccine 21034 Given 05/12/2010 Tetanus Shot 80319 Given 11/05/2009 Influenza Vaccine [id number] 85513 Given 11/15/2008 [place] [address] Given Unknown Zostavax Vital Signs Date Vital [...] Result H/L Range Note Rapid Influenza 12/04/2018 [facility] Influenza A NEGATIVE Negative 1 A & B Molecular [address] [place] [address] [phone] Influenza B Molecular NEGATIVE Negative TSH Reflex 11/23/2018 [facility] Thyroid Stim 0.77 uIU/mL Normal 0.30-4.20 2 FT4 And/Or [address] Hormone FT3 [place] [address] [phone] Reflex add FT3? N Reflex add FT4? N LDL Cholesterol 11/23/2018 [facility] Cholesterol 172 mg/dL <200 [address] [place] [address] [phone] Triglycerides 191 mg/dL High <150 4 HDL Cholesterol 35 mg/dL Low >40 5 LDL-Cholesterol 99 mg/dL < 100 6 Reflex add FT3? N Reflex add FT4? N Magnesium 11/23/2018 [facility] Magnesium 1.8 mg/dL Normal 1.8-2.[address] [place] [address] [phone] Reflex add FT3? N Reflex add FT4? N Comprehensive 11/23/2018 [facility] Glucose 135 mg/ dL High 74-106 Metabolic Panel [address] [place], [place] [address] [phone] BUN 33 mg/dL High 7-18 Creatinine 1.7 [...] N Reflex add FT4? N Glycohemoglobin 11/23/2018 [facility] Glycohemoglobin 6.5 % High 4.2-6.3 [address] (A1c) [place], [place] [id number] [phone] eAG 140 mg/dL Laboratory test 11/23/2018 [facility] Glycohemoglobin A1c <pending> finding [address] [place], [place] [address] [phone] TSH Reflex FT4 And/Or FT3 <pending> CBS W/Automated 11/23/2018 [facility] White 4.5 K/uL Normal 3.4-10.[address] [place] [address] Count [phone] Red Blood Count 4.46 M/uL Normal 4.20-5.80 [...] 33.0-73.0 Lymph % 34.2 % Normal 20.0-42.0 Smith % 6.3 % Normal 0.0-10.0 Eo% 3.8 % Normal 0.0-6.6 Bas% 1.3 % High 0.0-1.1 Immature Grans 0.2 % Normal 0.0-5.0 NRBC % 0.0 /100WBC < 10/ 100 WBC Neut# 2.43 K/uL Normal 1.8-7.0 Lymph # 1.53 K/uL Normal 1.0-4.0 Smith # 0.28 K/uL Normal 0.0-0.8 Eos # 0.17 K/uL Normal 0.0-0.5 Baso # 0.06 K/uL Normal 0.0-0.1 Immature Grans Absolute 0.01 K/uL NRBC # 0.00 K/uL Direct LDL 11/23/2018 [facility] LDL Chol. 97 mg/dL 0-[address] (Direct) [place] [address] [phone] Laboratory test 11/23/2018 [facility] Prostatic Acid 1.1 ng/mL 0.0-3.5 [address] Phos,[place] [address] [phone] Vitamin D,25-Hydroxy 44.9 ng/mL 30.0-100.0 10 Laboratory 11/23/2018 [facility] Magnesium <pending> test finding [address] [place] [address] [phone] Laboratory 08/17/2018 [facility] Free T4 1.0 ng/dL . 11, test finding [address] Dialysis/Mass 12 [place] [address] [employer] [phone] Laboratory 08/17/2018 [facility] Vitamin 37.4 ng/mL 30.0-100.0 13 test finding [address] D,25[place] [address] [phone] Hepatitis 08/17/2018 [facility] Hepatitis A Negative Negative Evaluation [address] [place] [place] [address] [phone] HBsAg Screen [Ref Lab] Negative Negative Hepatitis B Core IgM Negative Negative HCV Signal/Cutoff ratio < 0.1 s/corat 0.0-0.9 14 Laboratory test 08/17/2018 [facility] Thyroid Stim 4.89 uIU/mL High 0.30-4.[address] [place] [address] [phone] Free T4 0.93 ng/dL Normal 0.76-1.46 LDL Cholesterol 08/17/2018 [facility] Cholesterol 180 mg/dL <200 [address] [place], [place] [address] [phone] Triglycerides 330 mg/dL High <150 16 HDL Cholesterol 31 mg/dL Low >40 17 LDL-Cholesterol 83 mg/dL < 100 18 Laboratory test 08/17/2018 [facility] Magnesium 1.6 mg/dL Low 1.8-2.[address] [place], [place] [address] [phone] Comprehensive 08/17/2018 [facility] Glucose 147 mg/ dL High 74-106 Metabolic Panel [address] [place], [place] [address] [phone] BUN 36 mg/dL High 7-18 Creatinine 1.3 [...] 40 U/L Low 45-117 CBS W/Automated 08/17/2018 [facility] White 4.3 K/uL Normal 3.4-10.[address] [place] [place] [address] Count [phone] Red Blood Count 4.40 M/uL Normal 4.20-5.80 [...] 33.0-73.0 Lymph % 34.8 % Normal 20.0-42.0 Smith % 6.7 % Normal 0.0-10.0 Eo% 4.9 % Normal 0.0-6.6 Bas% 0.9 % Normal 0.0-1.1 Immature Grans 0.2 % Normal 0.0-5.0 NRBC % 0.0 /100WBC < 10/ 100 WBC Neut# 2.26 K/uL Normal 1.8-7.0 Lymph # 1.50 K/uL Normal 1.0-4.0 Smith # 0.29 K/uL Normal 0.0-0.8 Eos # 0.21 K/uL Normal 0.0-0.5 Baso # 0.04 K/uL Normal 0.0-0.1 Immature Grans Absolute 0.01 K/uL NRBC # 0.00 K/uL Glycohemoglobin 08/17/2018 [facility] Glycohemoglobin 7.2 % High 4.2-6.3 [address] (A1c) [place] [address] [phone] eAG 160 mg/dL 1 [employer]er: [id number] 2 I34.0, D64.9, E78.5, E61.2, 03.9 3 [...] for more aggressive treatment of glycemia. The [place] [employer] Association recommends that a primary goal of therapy should be a HbA1c of <7% and that physicians should re-evaluate the treatment regimen in patients with HbA1c values consistently >8%. 9 [employer] 2000 methodology. Values obtained with different assay methods or kits cannot be used interchangeably. Results cannot be interpreted as absolute evidence of the presence or absence of malignant disease. Performed at: - [facility] [id number] [employer] Operator: Jannie Luna MD, Phone: [phone] Performed at: - [facility] [id number] Pure Culture Operator: Ivan Rodriguez MD, Phone: [phone] 10 Vitamin D deficiency has been defined by the [place] of [employer] and an Endocrine Society practice guideline as a level of serum 25-OH vitamin D less than 20 ng/mL (1,2). The Endocrine Society went on to further define vitamin D insufficiency as a level between 21 and 29 ng/mL (2). 1. IOM ([place] of [employer]). 2010. Dietary reference intakes for calcium and D. [place]: The National Academies Press. 2. Kathryn MF, Sheri HERNANDEZ, Oly VILLARREAL, et al. Evaluation, treatment, and prevention of vitamin D deficiency: an Endocrine Society clinical practice guideline. JCEM. 2010; 96(7):1911-30. Performed at: [facility] [employer] [id number] Pure [employer] Operator: Jannie Luna MD, Phone: [phone] NO DX 12 Reference Range: Pubertal Children and Adults: 0.8 - 1.7 Performed at: [facility] [address] [place] [id number] Pure Culture Operator: Ron Pastor MD, Phone: [phone] 13 Vitamin D deficiency has been defined by the [place] of [employer] and an Endocrine Society practice guideline as a level of serum 25-OH vitamin D less than 20 ng/mL (1,2). The Endocrine Society went on to further define vitamin D insufficiency as a level between 21 and 29 ng/mL (2). 1. IOM ([place] of [employer]). 2010. Dietary reference intakes for calcium and D. [place]: The National Academies Press. 2. Kathryn MF, Sheri HERNANDEZ, Oly VILLARREAL, et al. Evaluation, treatment, and prevention of vitamin D deficiency: an Endocrine Society clinical practice guideline. JCEM. 2010; 96(7):1911-30. Performed at: [facility] [employer] [id number] Pure Culture Operator: Jannie Luna MD, Phone: [phone] INFCE Result Units: s/co ratio Negative: < 0.8 Indeterminate: 0.8 - 0.9 Positive: > 0.9 The CDC recommends that a positive HCV antibody result be followed up with a HCV Nucleic Acid Amplification test (420901). Performed at: [facility] [employer] [id number] Pure Culture Operator: Jannie Luna MD, Phone: [phone] 15 Reference Guidelines*: Desirable: ........... < 200 [...] for more aggressive treatment of glycemia. The [place] Diabetes Association recommends that a primary goal of therapy should be a HbA1c of <7% and that physicians should re-evaluate the treatment regimen in patients with HbA1c values consistently >8%. Procedures Date Code Description Status 07/27/2018 72107 Spirometry Graphic Record/Max Voluntary Vent Completed 10/29/2016 149103033 Bone Mineral Density Test Completed 09/23/2010 12996825 Colonoscopy Completed Medical Devices Description No Information [...] Anemia, unspecified I25.10 Athscl heart disease of [place] coronary artery w/o ang pctrs E03.9 Hypothyroidism, [...] Anemia, unspecified I25.10 Athscl heart disease of [place] coronary artery w/o ang pctrs E03.9 Hypothyroidism, [...] Anemia, unspecified I25.10 Athscl heart disease of [place] coronary artery w/o ang pctrs E11.65 Type [...] Anemia, unspecified I25.10 Athscl heart disease of [place] coronary artery w/o ang pctrs E11.65 Type [...] Anemia, unspecified I25.10 Athscl heart disease of [place] coronary artery w/o ang pctrs I49.1 Atrial premature depolarization E11.9 Type 2 diabetes mellitus without complications K73.9 Chronic hepatitis, unspecified E55.9 Vitamin D deficiency, unspecified Assessments Date Code Description Provider 12/21/2018 E61.2 Magnesium deficiency Gauss, Rocco 12/21/2018 J44.9 Chronic obstructive pulmonary disease, unspecified Gauss, Rcoco 12/21/2018 I65.23 Occlusion and stenosis of bilateral [...] Rocco 12/21/2018 I25.10 Atherosclerotic heart disease of [place] coronary artery Gauss, Rocco without angina pectoris [...] Lorenzo, Rocco 11/28/2018 E61.2 Magnesium deficiency Lorenzo, [facility] 11/28/2018 J44.9 Chronic obstructive pulmonary disease, unspecified Lorenzo, Rocco 11/28/2018 I65.23 Occlusion and stenosis of bilateral carotid arteries Lorenzo , [facility] 11/28/2018 K58.0 Irritable bowel syndrome with diarrhea [facility], [facility] 11/28/2018 I34.0 Nonrheumatic mitral (valve) insufficiency [facility], [facility] 11/28/2018 F02.80 Dementia in other diseases classified elsewhere without [facility] 11/28/2018 K21.9 Gastro-esophageal reflux disease without esophagitis [facility] , [facility] 11/28/2018 G47.33 Obstructive sleep apnea (adult) ([facility]) [facility] 11/28/2018 D64.9 Anemia, unspecified [facility] 11/28/2018 I25.10 Atherosclerotic heart disease of [place] coronary artery Kamran Ventural without angina pectoris 11/28/2018 E03.9 [facility], [facility] 11/28/2018 E55.9 Vitamin D deficiency, unspecified [facility], [facility] 11/28/2018 I11.9 Hypertensive heart disease without heart [facility] 11/28/2018 R73.01 Impaired fasting glucose [facility], [facility] 11/09/2018 E61.2 Magnesium deficiency [facility], [facility] 11/09/2018 J44.9 Chronic obstructive pulmonary disease, unspecified [facility], [facility] 11/09/2018 I65.23 Occlusion and stenosis of bilateral carotid [facility] 11/09/2018 K58.0 Irritable bowel syndrome with diarrhea [facility], [facility] 11/09/2018 I34.0 Nonrheumatic mitral (valve) insufficiency [facility], [facility] 11/09/2018 F02.80 Dementia in other diseases classified elsewhere without [facility] 11/09/2018 K21.9 Gastro-esophageal reflux disease without esophagitis [facility] , [facility] 11/09/2018 G47.33 Obstructive sleep apnea (adult) (pediatric) [place], [facility] 11/09/2018 R19.7 Diarrhea, unspecified [place], Rocco 11/09/2018 D64.9 Anemia, unspecified Gauss, Rocco 11/09/2018 I25.10 Atherosclerotic heart disease of [place] coronary artery Kamran Ventural without angina pectoris 11/09/2018 E11.65 Type 2 diabetes mellitus with hyperglycemia Lorenzo, Rocco 11/09/2018 E03.9 Hypothyroidism, unspecified [place], Rocco 11/09/2018 E78.5 Hyperlipidemia, unspecified Gauss, Rocco 11/09/2018 N40.0 Benign prostatic hyperplasia without lower urinary Kamran Ventural tract symptoms 11/09/2018 K73.9 Chronic hepatitis, unspecified [place], Rocco 11/09/2018 E55.9 Vitamin D deficiency, unspecified Gauss, [facility] 10/11/2018 E61.2 Magnesium deficiency Lorenzo, [facility] 10/11/2018 J44.9 Chronic obstructive pulmonary disease, unspecified Gauss, Rocco 10/11/2018 I65.23 Occlusion and stenosis of bilateral carotid arteries Gauss , [facility] 10/11/2018 K58.0 Irritable bowel syndrome with diarrhea Flmonika, [facility] 10/11/2018 I34.0 Nonrheumatic mitral (valve) insufficiency Pier[place], [facility] 10/11/2018 F02.80 Dementia in other diseases classified elsewhere without Gauss, Rocco behaviora 10/11/2018 K21.9 Gastro-esophageal reflux disease [facility] Rocco 10/11/2018 G47.33 Obstructive sleep apnea (adult) (pediatric) Lorenzo, Rocco 10/11/2018 Z23 Encounter for immunization Lorenzo, [facility] 09/20/2018 E61.2 Magnesium deficiency Lorenzo, [facility] 09/20/2018 J44.9 Chronic obstructive pulmonary disease, unspecified [place], Rocco 09/20/2018 I65.23 Occlusion and stenosis of bilateral carotid arteries Pierouss , Rocco 09/20/2018 K58.0 Irritable bowel syndrome with diarrhea [facility], [facility] 09/20/2018 I34.0 Nonrheumatic mitral (valve) insufficiency [facility], [facility] 09/20/2018 F02.80 Dementia in other diseases classified elsewhere without [place]amon[place], Rocco behaviora 09/20/2018 K21.9 Gastro-esophageal reflux disease [...] Rocco 08/23/2018 I25.10 Atherosclerotic heart disease of [place] coronary artery Kamran Ventural without angina pectoris [...] (pediatric) Lorenzo Rocco 07/28/2018 R19.7 Diarrhea, unspecified [place], Rocco 07/28/2018 D64.9 Anemia, unspecified Pieromonika Rocco 07/28/2018 I25.10 Atherosclerotic heart disease of [place] coronary artery Rocco Ventura without angina pectoris 07/28/2018 I49.1 Atrial premature depolarization Lorenzo Rocco 07/28/2018 E11.9 Type 2 diabetes mellitus without complications Lorenzo Rocco 07/28/2018 K73.9 Chronic hepatitis, unspecified Lorenzo Rocco 07/28/2018 E55.9 Vitamin D deficiency, unspecified Lorenzo Rocco 07/27/2018 R06.02 Shortness of breath Lorenzo Rocco 07/27/2018 J44.9 Chronic obstructive pulmonary disease, unspecified Lorenzo Rocco 07/27/2018 R05 Cough Rocco Ventura Plan of Treatment Future Appointment(s):02/27/2019 12:00 pm - Rocco Ventura at Main [id number] 8:00 am - Nurse at Main [place]2902/28/2019 10:00 am - Rocco Ventura at Main Office Functional Status Description No Information Available Mental Status Description No Information Available Referrals Description No Information Available
--- OUTSIDE RECORDS SUMMARY | 2019-02-13 12:28 | XMS REPORT | Continuity of Care Document ---
:1950 External Reference #:[id number] Author Name Rocco Ventura (transmitted by agent of provider Gifty Pollard) Address [address] [place] [address] Care Team Providers Name Role Phone Rocco Ventura MD - Internal Medicine Care Team Information Community Liaison Officer Problems Active Problems Provider Date Hyperlipidemia Rocco [...] HCL 1 [facility] Vitamin B-12 1 by mouth every 90tabs [facility] 02/01/2018 Natural day 500mcg Tablets Magnesium one tablet twice 180caps E83.40 [facility] 11/15/2017 500mg Capsules a day Vitamin D3 1 by mouth every 90caps [facility] 06/04/2015 5000Unit day Capsules Cpap Mask And Supples as directed Kamran Ventural 05/31/2014 Picacho 3 2 by mouth every 180caps [facility] 04/18/2014 1000mg Capsules day Cpap Machine Please dispense Rocco Ventura 05/04/2012 a mask, hose and filter. Dx Sleep Apnea Flomax 1 by mouth every 90caps [facility] 09/16/2010 0.4mg Capsules day Bystolic 1 by mouth every 90tabs [facility] 04/26/2009 5mg Tablets day Lipitor 1 by mouth every 90tabs [facility] 04/26/2009 40mg Tablets day Tricor 1 by mouth every 90tabs [facility] 04/26/2009 145mg Tablets day Altace 1qd - take one 90caps [facility] 04/26/2009 10mg Capsules capsule by mouth every day Dexilant 1 by mouth every 90caps [facility] 60mg Caps[address] day Viberzi 1 by mouth twice 180tabs [facility] 100mg Tablets a day History Medications A & D Cream Apply Twice Daily as Needed 45gm Lorenzo Rocco 06/21/2018 - Immunizations CPT Code Status Date Vaccine Lot # [id number] Given 10/11/2018 Influenza Virus (Quadrivalent)Splitvirus 3 [id number] Years Of Age And Older 38010 Given 10/11/2018 Influenza Virus Vaccine, Quadrivalent, Split, Preservative Free 04678 Given 11/15/2017 Tetanus,Diphtheria,Adut/Adol Pertussis [id number] Q2035 Given 11/08/2017 Influenza Virus (Quadrivalent)Splitvirus 3 Years Of Age And Older Q2035 Given 10/30/2016 Influenza Virus (Quadrivalent)Splitvirus 3 Years Of Age And Older 93665 Given 09/03/2016 Pneumococcal Conjugate Vaccine 13 Valent For [id number] Intramuscular Use Q2037 Given 11/11/2015 Influenza Vaccine (Fluvirin) 4 Years Of Age Or [id number] Older Q2035 Given 10/16/2014 Influenza Virus (Quadrivalent)Splitvirus 3 [id number] Years Of Age And Older 88075 Given 01/02/2014 Pneumovax Polyvalent Inj Im Q2037 Given 12/05/2013 Influenza Vaccine (Fluvirin) 4 Years Of Age Or Older Q2035 Given 11/16/2012 Influenza Virus (Quadrivalent)Splitvirus 3 Years Of Age And Older Q2035 Given 11/16/2012 Influenza Virus (Quadrivalent)Splitvirus 3 [id number] Years Of Age And Older Q2037 Given 12/01/2011 Influenza Vaccine (Fluvirin) 4 Years Of Age Or [id number] Older Q2036 Given 12/30/2010 Flulaval [id number] 24033 Given 12/30/2010 Influenza Vaccine 81829 Given 05/12/2010 Tetanus Shot 68547 Given 11/05/2009 Influenza Vaccine [id number] 94712 Given 11/15/2008 [place] [address] Given Unknown Zostavax Vital Signs Date Vital [...] (Body Mass Index) 32.4 kg/m2 Results Test Acquired Date Facility Test Result H/L Range Note Rapid Influenza 12/04/2018 [facility]. Influenza A NEGATIVE Negative 1 A & B Molecular [address] Molecular [place], [place] [id number] [phone] Influenza B Molecular NEGATIVE Negative TSH Reflex 11/23/2018 [facility] Thyroid Stim 0.77 uIU/mL Normal 0.30-4.20 2 FT4 And/Or [address] Hormone FT3 [place], [place] [id number] [phone] Reflex add FT3? N Reflex add FT4? N LDL Cholesterol 11/23/2018 [facility] Cholesterol 172 mg/dL <200 [address] [place], [place] [id number] [phone] Triglycerides 191 mg/dL High <150 4 HDL Cholesterol 35 mg/dL Low >40 5 LDL-Cholesterol 99 mg/dL < 100 6 Reflex add FT3? N Reflex add FT4? N Magnesium 11/23/2018 [facility] Magnesium 1.8 mg/dL Normal 1.8-2.[address] [place], [place] [address] [phone] Reflex add FT3? N Reflex add FT4? N Comprehensive 11/23/2018 [facility] Glucose 135 mg/ dL High 74-106 Metabolic Panel [address] [place], [place] [address] [phone] BUN 33 mg/dL High 7-18 Creatinine 1.7 [...] [address] (A1c) [place], [place] [address] [phone] eAG 140 mg/dL Laboratory test 11/23/2018 [facility] Glycohemoglobin A1c <pending> finding [address] [place] [address] [phone] TSH Reflex FT4 And/Or FT3 <pending> CBS W/Automated 11/23/2018 [facility] White 4.5 K/uL Normal 3.4-10.[address] [place] [address] Count [phone] Red Blood Count 4.46 M/uL Normal 4.20-5.80 [...] 33.0-73.0 Lymph % 34.2 % Normal 20.0-42.0 [place] % 6.3 % Normal 0.0-10.0 Eo% 3.8 % Normal 0.0-6.6 Bas% 1.3 % High 0.0-1.1 Immature Grans 0.2 % Normal 0.0-5.0 NRBC % 0.0 /100WBC < 10/ 100 WBC Neut# 2.43 K/uL Normal 1.8-7.0 Lymph # 1.53 K/uL Normal 1.0-4.0 [place] # 0.28 K/uL Normal 0.0-0.8 Eos # 0.17 K/uL Normal 0.0-0.5 Baso # 0.06 K/uL Normal 0.0-0.1 Immature Grans Absolute 0.01 K/uL NRBC # 0.00 K/uL Direct LDL 11/23/2018 [facility] LDL Chol. 97 mg/dL 0-[address] (Direct) [place] [address] [phone] Laboratory test 11/23/2018 [facility] Prostatic Acid 1.1 ng/mL 0.0-3.5 [address] Phos,[place] [address] [phone] Vitamin D,25-Hydroxy 44.9 ng/mL 30.0-100.0 10 Laboratory 11/23/2018 [facility] Magnesium <pending> test finding [address] [place] [address] [phone] Laboratory 08/17/2018 [facility] Free T4 1.0 ng/dL . 11, test finding [address] Dialysis/Mass 12 [place] [address] Spect [phone] Laboratory 08/17/2018 [facility] Vitamin 37.4 ng/mL 30.0-100.0 13 test finding [address] D,25[place] [address] [phone] Hepatitis 08/17/2018 [facility] Hepatitis A Negative Negative Evaluation [address] [place] [place] [address] [phone] HBsAg Screen [Ref Lab] Negative Negative Hepatitis B Core IgM Negative Negative HCV Signal/Cutoff ratio < 0.1 s/corat 0.0-0.9 14 Laboratory test 08/17/2018 [facility] Thyroid Stim 4.89 uIU/mL High 0.30-4.[address] [place] [place] [address] [phone] Free T4 0.93 ng/dL Normal 0.76-1.46 LDL Cholesterol 08/17/2018 [facility] Cholesterol 180 mg/dL <200 [address] [place], [place] [address] [phone] Triglycerides 330 mg/dL High <150 16 HDL Cholesterol 31 mg/dL Low >40 17 LDL-Cholesterol 83 mg/dL < 100 18 Laboratory test 08/17/2018 [facility] Magnesium 1.6 mg/dL Low 1.8-2.[address] [place] [address] [phone] Comprehensive 08/17/2018 [facility] Glucose 147 mg/ dL High 74-106 Metabolic Panel [address] [place], [place] [address] [phone] BUN 36 mg/dL High 7-18 Creatinine 1.3 [...] 3.4-10.[address] [place] [place] [address] Count [phone] Red Blood Count 4.40 M/uL Normal 4.20-5.80 [...] 33.0-73.0 Lymph % 34.8 % Normal 20.0-42.0 [place] % 6.7 % Normal 0.0-10.0 Eo% 4.9 % Normal 0.0-6.6 Bas% 0.9 % Normal 0.0-1.1 Immature Grans 0.2 % Normal 0.0-5.0 NRBC % 0.0 /100WBC < 10/ 100 WBC Neut# 2.26 K/uL Normal 1.8-7.0 Lymph # 1.50 K/uL Normal 1.0-4.0 [place] # 0.29 K/uL Normal 0.0-0.8 Eos # 0.21 K/uL Normal 0.0-0.5 Baso # 0.04 K/uL Normal 0.0-0.1 Immature Grans Absolute 0.01 K/uL NRBC # 0.00 K/uL Glycohemoglobin 08/17/2018 [facility] Glycohemoglobin 7.2 % High 4.2-6.3 [address] (A1c) [place], [place] [address] [phone] eAG 160 mg/dL Laboratory test 07/20/2018 [facility] Thyroid Stim 4.21 High 0.30-4.20 [address] Hormone uIU/mL [place], [place] [address] [phone] Free T4 0.90 ng/dL Normal 0.76-1.46 CBS W/Automated 07/20/2018 [facility] White 4.0 K/uL Normal 3.4-10.[address] [place] [address] Count [phone] Red Blood Count 4.45 M/uL Normal 4.20-5.80 [...] 33.0-73.0 Lymph % 35.8 % Normal 20.0-42.0 [place] % 6.8 % Normal 0.0-10.0 Eo% 4.3 % Normal 0.0-6.6 Bas% 1.3 % High 0.0-1.1 Immature Grans 0.5 % Normal 0.0-5.0 NRBC % 0.0 /100WBC < 10/ 100 WBC Neut# 2.06 K/uL Normal 1.8-7.0 Lymph # 1.43 K/uL Normal 1.0-4.0 [place] # 0.27 K/uL Normal 0.0-0.8 Eos # 0.17 K/uL Normal 0.0-0.5 Baso # 0.05 K/uL Normal 0.0-0.1 Immature Grans Absolute 0.02 K/uL NRBC # 0.00 K/uL Comprehensive 07/20/2018 [facility] Glucose 160 mg/ dL High 74-106 Metabolic Panel [address] [place], [place] [address] [phone] BUN 27 mg/dL High 7-18 Creatinine 1.1 [...] [address] (A1c) [place] [address] [phone] eAG 166 mg/dL Laboratory test 07/20/2018 [facility] Magnesium 1.3 mg/dL Low 1.8-2.[address] [place], [place] [address] [phone] 1 Bulk Intake Worker: [id number] 2 I34.0, D64.9, E78.5, E61.2, 03.9 3 [...] for more aggressive treatment of glycemia. The [place] Diabetes Association recommends that a primary goal of therapy should be a HbA1c of <7% and that physicians should re-evaluate the treatment regimen in patients with HbA1c values consistently >8%. 9 [employer] 2000 methodology. Values obtained with different assay methods or kits cannot be used interchangeably. Results cannot be interpreted as absolute evidence of the presence or absence of malignant disease. Performed at: - [facility] [address] [id number] Heater Operator: Jannie Luna MD, Phone: [phone] Performed at: - [facility] [id number] Heater Operator: Ivan Rodriguez MD, Phone: [phone] Vitamin D deficiency has been defined by the [place] of [employer] and an Endocrine Society practice guideline as a level of serum 25-OH vitamin D less than 20 ng/mL (1,2). The Endocrine Society went on to further define vitamin D insufficiency as a level between 21 and 29 ng/mL (2). 1. IOM ([place] of [employer]). 2010. Dietary reference intakes for calcium and D. [place]: The National Academies Press. 2. Kathryn MF, Sheri NC, Oly VILLARREAL, et al. Evaluation, treatment, and prevention of vitamin D deficiency: an Endocrine Society clinical practice guideline. JCEM. 2010; 96(7):1911-30. Performed at: - [facility] [address] [id number] Heater Operator: Jannie Luna MD, Phone: [phone] 11 NO DX 12 Reference Range: Pubertal Children and Adults: 0.8 - 1.7 Performed at: [facility] [address] [place] [id number] Heater Operator: Ron Pastor MD, Phone: [phone] Vitamin D deficiency has been defined by the [place] [employer] and an Endocrine Society practice guideline as a level of serum 25-OH vitamin D less than 20 ng/mL (1,2). The Endocrine Society went on to further define vitamin D insufficiency as a level between 21 and 29 ng/mL (2). 1. IOM ([place] [employer]). 2010. Dietary reference intakes for calcium and D. [place]: The National AcademHalton Press. 2. Kathryn MF, Sheri [place], Oly VILLARREAL, et al. Evaluation, treatment, and prevention of vitamin D deficiency: an Endocrine Society clinical practice guideline. JCEM. 2010; 96(9):1911-30. Performed at: RN - [facility] [address] [id number] Heater Operator: Jannie Luna MD, Phone: [phone] INFCE Result Units: s/co ratio Negative: < 0.8 Indeterminate: 0.8 - 0.9 Positive: > 0.9 The CDC recommends that a positive HCV antibody result be followed up with a HCV Nucleic Acid Amplification test (967811). Performed at: RN - [facility] [address] [id number] Heater Operator: Jannie Luna MD, Phone: [phone] Reference Guidelines*: Desirable: ........... < 200 [...] for more aggressive treatment of glycemia. The [place] Diabetes Association recommends that a primary goal [...] for more aggressive treatment of glycemia. The [place] Diabetes Association recommends that a primary goal of therapy should be a HbA1c of <7% and that physicians should re-evaluate the treatment regimen in patients with HbA1c values consistently >8%. Procedures Date Code Description Status 07/27/2018 55718 Spirometry Graphic Record/Max Voluntary Vent Completed 10/29/2016 [id number] Bone Mineral Density Test Completed 09/23/2010 78341472 Colonoscopy Completed Medical Devices Description No Information [...] Anemia, unspecified I25.10 Athscl heart disease [place] coronary artery w/o ang pctrs E03.9 Hypothyroidism, [...] Anemia, unspecified I25.10 Athscl heart disease [place] coronary artery w/o ang pctrs E11.65 Type [...] Anemia, unspecified I25.10 Athscl heart disease [place] coronary artery w/o ang pctrs E11.65 Type [...] Anemia, unspecified I25.10 Athscl heart disease [place] coronary artery w/o ang pctrs I49.1 Atrial [...] Code Description Provider 11/28/2018 E61.2 Magnesium deficiency Gauss, Rocco 11/28/2018 J44.9 Chronic obstructive pulmonary disease, unspecified Gauss, Rocco 11/28/2018 I65.23 Occlusion and stenosis of bilateral carotid arteries Gauss , Rocco 11/28/2018 K58.0 Irritable bowel syndrome with diarrhea Gauss, Rocco 11/28/2018 I34.0 Nonrheumatic mitral (valve) insufficiency Gauss, Rocco 11/28/2018 F02.80 Dementia in other diseases classified elsewhere without Gauss, Rocco behaviora 11/28/2018 K21.9 Gastro-esophageal reflux disease without esophagitis Gauss , Rocco 11/28/2018 G47.33 Obstructive sleep apnea (adult) (pediatric) Gauss, Rocco 11/28/2018 D64.9 Anemia, unspecified Gauss, Rocco 11/28/2018 I25.10 Atherosclerotic heart disease of [place] coronary artery Lorenzo Rocco without angina pectoris 11/28/2018 E03.9 Hypothyroidism, unspecified Gauss, Rocco 11/28/2018 E55.9 Vitamin D deficiency, unspecified Gauss, Rocco 11/28/2018 I11.9 Hypertensive heart disease without heart failure Gauss, Rocco 11/28/2018 R73.01 Impaired fasting glucose Gauss, Rocco 11/09/2018 E61.2 Magnesium deficiency Gauss, Rocco 11/09/2018 J44.9 Chronic obstructive pulmonary disease, [...] Rocco 11/09/2018 I25.10 Atherosclerotic heart disease of [place] coronary artery OkKamran frankl without angina pectoris 11/09/2018 E11.65 Type 2 diabetes mellitus with hyperglycemia [facility], Rocco 11/09/2018 E03.9 Hypothyroidism, unspecified Gauss, Rocco 11/09/2018 E78.5 Hyperlipidemia, unspecified [facility], [facility] 11/09/2018 N40.0 Benign prostatic hyperplasia without lower urinary OkKamran frankl tract symptoms 11/09/2018 K73.9 Chronic hepatitis, unspecified [place], Rocco 11/09/2018 E55.9 Vitamin D deficiency, unspecified Gauss, [facility] 10/11/2018 E61.2 Magnesium deficiency [facility], [facility] 10/11/2018 J44.9 Chronic obstructive pulmonary disease, unspecified Gauss, [facility] 10/11/2018 I65.23 Occlusion and stenosis of bilateral carotid arteries [facility] , [facility] 10/11/2018 K58.0 Irritable bowel syndrome with diarrhea [facility], [facility] 10/11/2018 I34.0 Nonrheumatic mitral (valve) insufficiency [facility], Rocco 10/11/2018 F02.80 Dementia in other diseases classified elsewhere without Gauss, Rocco behaviora 10/11/2018 K21.9 Gastro-esophageal reflux disease without esophagitis Gauss , Rocco 10/11/2018 G47.33 Obstructive sleep apnea (adult) (pediatric) Gauss, [facility] 10/11/2018 Z23 Encounter for immunization [facility], [facility] 09/20/2018 E61.2 Magnesium deficiency [facility], [facility] 09/20/2018 J44.9 Chronic obstructive pulmonary disease, unspecified [facility], [facility] 09/20/2018 I65.23 Occlusion and stenosis of bilateral carotid arteries [facility] , [facility] 09/20/2018 K58.0 Irritable bowel syndrome with diarrhea Gauss, Rocco 09/20/2018 I34.0 Nonrheumatic mitral (valve) insufficiency Gauss, Rocco 09/20/2018 F02.80 Dementia in other diseases classified elsewhere without Gauss, Rocco behavior 09/20/2018 K21.9 Gastro-esophageal reflux disease without esophagitis Gauss , Rocco 08/23/2018 E61.2 Magnesium deficiency Gauss, Rocco 08/23/2018 J44.9 Chronic obstructive pulmonary disease, unspecified Gauss, Rocco 08/23/2018 I65.23 Occlusion and stenosis of bilateral carotid arteries Gauss , Rocco 08/23/2018 K58.0 Irritable bowel syndrome with diarrhea Gauss, Rocco 08/23/2018 I34.0 Nonrheumatic mitral (valve) insufficiency Gauss, [facility] 08/23/2018 F02.80 Dementia in other diseases classified elsewhere without Gauss, Rocco behavior 08/23/2018 K21.9 Gastro-esophageal reflux disease without esophagitis Gauss , [facility] 08/23/2018 G47.33 Obstructive sleep apnea (adult) (pediatric) Gauss, [facility] 08/23/2018 R19.7 Diarrhea, unspecified Gauss, [facility] 08/23/2018 D64.9 Anemia, unspecified Gauss, [facility] 08/23/2018 I25.10 Atherosclerotic heart disease of [place] coronary artery Lorenzo Rocco without angina pectoris 08/23/2018 E11.65 Type 2 diabetes mellitus with hyperglycemia Gauss, [facility] 08/23/2018 E03.9 Hypothyroidism, unspecified Gauss, Rocco 07/28/2018 E61.2 Magnesium deficiency Gauss, Rocco 07/28/2018 J44.9 Chronic obstructive pulmonary disease, unspecified Gauss, Rocco 07/28/2018 I65.23 Occlusion and stenosis of bilateral carotid arteries Gauss , Rocco 07/28/2018 K58.0 Irritable bowel syndrome with diarrhea Gauss, Rocco 07/28/2018 I34.0 Nonrheumatic mitral (valve) insufficiency Gauss, Rocco 07/28/2018 F02.80 Dementia in other diseases classified elsewhere without Gauss, Rocco behavior 07/28/2018 E03.9 Hypothyroidism, unspecified Gauss, Rocco 07/28/2018 K21.9 Gastro-esophageal reflux disease without esophagitis Gauss , Rocco 07/28/2018 I11.9 Hypertensive heart disease without heart failure Gauss, [facility] 07/28/2018 E78.5 Hyperlipidemia, unspecified Gauss, [facility] 07/28/2018 N40.0 Benign prostatic hyperplasia without lower urinary Gauss, Rocco tract symptoms 07/28/2018 G47.33 Obstructive sleep apnea (adult) (pediatric) Gauss, Rocco 07/28/2018 R19.7 Diarrhea, unspecified Gauss, [facility] 07/28/2018 D64.9 Anemia, unspecified Gauss, [facility] 07/28/2018 I25.10 Atherosclerotic heart disease of [place] coronary artery [facility] without angina pectoris 07/28/2018 I49.1 Atrial premature depolarization [facility], [facility] 07/28/2018 E11.9 Type 2 diabetes mellitus without complications Gauss, [facility] 07/28/2018 K73.9 Chronic hepatitis, unspecified [facility], [facility] 07/28/2018 E55.9 Vitamin D deficiency, unspecified Gauss, [facility] 07/27/2018 R06.02 Shortness of breath Gauss, [facility] 07/27/2018 J44.9 Chronic obstructive pulmonary disease, unspecified Gauss, [facility] 07/27/2018 R05 Cough [facility], [facility] 06/21/2018 K58.0 Irritable bowel syndrome with diarrhea [facility], [facility] 06/21/2018 J44.9 Chronic obstructive pulmonary disease, unspecified Gauss, [facility] 06/21/2018 I65.23 Occlusion and stenosis of bilateral carotid arteries [facility] , [facility] 06/21/2018 I34.0 Nonrheumatic mitral (valve) insufficiency [facility], [facility] 06/21/2018 F02.80 Dementia in other diseases classified elsewhere without Gauss, Rocco behaviora 06/21/2018 K21.9 Gastro-esophageal reflux disease without esophagitis Gauss , [facility] 06/21/2018 E11.9 Type 2 diabetes mellitus without complications Gauss, [facility] 06/21/2018 E66.09 Other obesity due to excess calories Gauss, [facility] 06/21/2018 E03.9 Hypothyroidism, unspecified Gauss, [facility] 06/21/2018 N40.0 Benign prostatic hyperplasia without lower urinary Gauss, Rocco tract symptoms 06/21/2018 G47.33 Obstructive sleep apnea (adult) (pediatric) Rocco Ventura 06/21/2018 I11.9 Hypertensive heart disease without heart failure Rocco Ventura 06/21/2018 E61.2 Magnesium deficiency Rocco Ventura Plan of Treatment Future Appointment(s):02/22/2019 8:00 am - Nurse at Main [facility]7202/28/2019 10: 00 am - Rocco Ventura at Main Office Functional Status Description No Information Available Mental Status Description No Information Available Referrals Description No Information Available
[2019-02-13 12:31] VITALS: BP 117/55
--- NOTE | 2019-02-13 12:52 | UC ---
Throat Pain/Nasal Sam HPI - HPI Summary HPI Summary: Pt presents with c/o cough, nasal congestion, PND, X 4 days. - History of Current Complaint Chief Complaint: UCRespiratory Stated Complaint: COUGH,CONGESTION Time Seen by Provider: 02/13/19 12:39 Hx Obtained From: Patient Onset/Duration: Sudden Onset, Lasting Days, Still Present Severity: Mild Pain Intensity: 0 Cough: Nonproductive Associated Signs & Symptoms: Positive: Nasal Discharge - Epiglottits Risk Factors Epiglottis Risk Factors: Negative - Allergies/Home Medications Allergies/Adverse Reactions: Allergies Allergy/AdvReac Type Severity Reaction Status Date / Time aspirin Allergy Rash Verified 02/13/19 12:29 latex Allergy Rash Verified 02/13/19 12:29 Penicillins Allergy Rash Verified 02/13/19 12:29 Home Medications: Home Medications Betamethasone Dipropionate 15 gm TP DAILY 02/13/19 [History Confirmed 02/13/19] PMH/Surg Hx/FS Hx/Imm Hx Previously Healthy: Yes Endocrine History: Diabetes, Hypothyroidism, Dyslipidemia Cardiovascular History: Cardiac Disease - Surgical History Surgical History: Yes Surgery Procedure, Year, and Place: 1979 thyroidectomy for hyperthyroid [facility]. SURGERY ON BOTH EYES FOR LAZY EYE AT . [facility] 2002 -UMBILICAL HERNIA and at - [id number] [place]. BILATERAL CATARACTS-SCREW IN RIGHT HIP AT . VASECTOMY - Family History Known Family History: Positive: Hypertension, Diabetes - Social History Occupation: Retired Lives: With Family Alcohol Use: None Substance Use Type: None Smoking Status (MU): Never Smoked Tobacco Have You Smoked in the Last Year: No - Immunization History Most Recent Tetanus Shot: unsure Review of Systems All Other Systems Reviewed And Are Negative: Yes Constitutional: Positive: Negative Skin: Positive: Negative Eyes: Positive: Negative ENT: Positive: Sinus Congestion, Other - PND Respiratory: Positive: Cough Cardiovascular: Positive: Negative Gastrointestinal: Positive: Negative Genitourinary: Positive: Negative Motor: Positive: Negative Neurovascular: Positive: Negative Musculoskeletal: Positive: Negative Neurological: Positive: Negative Psychological: Positive: Negative Is Patient Immunocompromised?: No Physical Exam Triage Information Reviewed: Yes Appearance: Well-Appearing Vital Signs: Initial Vital Signs Temp 98.0 F 02/13/19 12:29 Pulse 56 02/13/19 12:29 Resp 20 02/13/19 12:29 BP 117/55 02/13/19 12:29 Pulse Ox 96 02/13/19 12:29 Vital Signs Reviewed: Yes Eye Exam: Normal ENT: Positive: Nasal congestion Dental Exam: Normal Neck exam: Normal Respiratory Exam: Normal Cardiovascular Exam: Normal Musculoskeletal Exam: Normal Neurological Exam: Normal Psychological Exam: Normal Skin Exam: Normal Throat Pain/Nasal Course/Dx - Differential Dx/Diagnosis Differential Diagnosis/HQI/PQRI: Influenza, Sinusitis, URI Provider Diagnosis: Acute viral syndrome Discharge ED - Sign-Out/Discharge Documenting (check all that apply): Patient Departure All imaging exams completed and their final reports reviewed: No Studies - Discharge Plan Condition: Stable Disposition: HOME Prescriptions: Guaifenesin/Dextromethorphan [Coricidin Hbp Chest Sam-Cough] 1 each PO Q6H #20 capsule Oxymetazoline 0.05% NASAL SPR* [Afrin 0.05% NASAL SPRAY*] 1 spray NASAL Q12H 5 Days #1 btl Patient Education Materials: Viral Syndrome (ED) Referrals: Rocco Ventura MD [Primary Care Provider] - If Needed - Billing Disposition and Condition Condition: STABLE Disposition: Home
== END 2019-02-13 13:00 | disposition home or self-care (01) ==
LOC: UCCORT 11:24
DX: B34.9 Viral infection, unspecified (principal); R05 Cough; R09.81 Nasal congestion; R09.82 Postnasal drip; E11.9 Type 2 diabetes mellitus without complications; Z88.6 Allergy status to analgesic agent; Z91.040 Latex allergy status; Z88.0 Allergy status to penicillin
CPT/HCPCS: 99212; G0463

== ENCOUNTER 2023-09-21 11:30 | Observation (INO) ==
[~2023-09-21 11:30] MED LIST: Naloxone 0.4 mg VIAL 0.4 mg/ml 1 ml VIAL IV PRN; Ondansetron 4 mg VIAL 2 MG/ML 2 ml VIAL IV PRN; fentaNYL 100 mcg/2 ml 50 MCG/ML VIAL IV PRN
[2023-09-21] MEDS ORDERED: ROPIVACAINE 5 MG/ML 30 ML BTL (0.5%) ONE ×3 (12:10→14:42)
[2023-09-21 12:17] LABS: Rapid COVID-19 Molecular Undetected (Undetected)
[2023-09-21] MEDS ORDERED: Propofol 10 MG/ML 20 ML BTL ONE ×3 (12:18→13:04)
[2023-09-21] MEDS ORDERED: Lidocaine 2% PF 5 ML VIAL ONE (12:18)
[2023-09-21] MEDS ORDERED: KETAMINE HCL 10 MG/ML 20 ml VIAL (200 MG) ONE (12:20)
[2023-09-21] MEDS ORDERED: Midazolam 2 mg/2 ml VIAL 1 mg/ml 2 ml VIAL (2 mg) ONE ×2 (12:21→13:37)
[2023-09-21] MEDS ORDERED: Rocuronium 50 mg VIAL 10 mg/ml 5 ml VIAL (50 mg) ONE (12:28)
[2023-09-21] MEDS ORDERED: ceFAZolin 2 GM in NS PREMIX 2 GM/100 ML BAG IVPB ONE (12:55)
[2023-09-21] MEDS: Buffered Lidocaine 1% SYRIN 1 ml INTRADERM ONE (13:10)
[2023-09-21] MEDS ORDERED: Dexamethasone IV 4 MG/ML VIAL 1 ml VIAL ONE ×2 (13:11→13:18)
[2023-09-21] MEDS: Lactated Ringers 1000 ml BAG 1,000 ML IV SCH ×2 (13:11→21:16)
[2023-09-21] MEDS ORDERED: Tranexamic Acid 1 GM/100ML BAG 2,000 MG/200 ML BAG IV ONE (13:19)
[2023-09-21] MEDS ORDERED: fentaNYL 100 mcg/2 ml 50 MCG/ML VIAL ONE (14:52)
[2023-09-21] MEDS ORDERED: Morphine 2 MG/ML SYRINGE IV PRN (15:53)
[2023-09-21] MEDS ORDERED: Ondansetron ODT 4 mg TAB 4 MG TAB PO PRN (15:53)
[2023-09-21] MEDS ORDERED: Lactulose 30 ml UDC PO PRN (15:53)
[2023-09-21] MEDS ORDERED: Magnesium Hydroxide LIQ 30 ML UDC PO PRN (15:53)
[2023-09-21] MEDS ORDERED: Ondansetron 4 mg VIAL 2 MG/ML 2 ml VIAL IV PRN (15:53)
[2023-09-21] MEDS ORDERED: Calcium Carb (TUMS) 500 mg CHEW TAB PO PRN (15:53)
[2023-09-21] MEDS ORDERED: Ondansetron 4 mg VIAL 2 MG/ML 2 ml VIAL ONE (16:47)
[2023-09-21] MEDS: Magnesium Hydroxide LIQ 30 ML UDC PO SCH (22:31)
[2023-09-21] MEDS: ceFAZolin 2 GM in NS PREMIX 2 GM/100 ML BAG IVPB SCH (23:40)
[2023-09-22 06:44] LABS: Hematocrit 35.4 % (38-53); Hemoglobin 12.2 g/dL (13.2-16.3); Platelet Count 162 10^3/uL (150-450)
[2023-09-22 07:19] LABS: Calcium 9.1 mg/dL (8.6-10.3); Creatinine, Serum 1.04 mg/dL (0.67-1.17); Potassium 4.4 mmol/L (3.5-5.0); eGFR CKD-EPI 76.3 (>60)
[2023-09-22] MEDS: Vitamin THERAPEUTIC TAB PO SCH (08:09)
[2023-09-22 14:11] VITALS: BP 130/71
== END 2023-09-22 15:30 | disposition home or self-care (01) ==
LOC: SSU 11:30 → OR 11:30
PROVIDERS: ADMIT Orthopaedic Surgery Adult Reconstructive Orthopaedic Surgery; ATTEND Orthopaedic Surgery Adult Reconstructive Orthopaedic Surgery